=== PATIENT | male | born 1965 | race Two or more races ===

== ENCOUNTER → 2023-10-18 | Outpatient (CLI) | payer OTHER ==
--- NOTE | 2023-10-18 11:39 | FL ---
COMPARISON: NONE DATE OF EXAM: 10/18/2023 HISTORY: Dysphagia A number of thin and thick substances were ingested under the care of the department of speech pathol ogy. There is no evidence of aspiration or penetration. There is no evidence of obstruction. 69 se conds of fluoroscopy. A DAP cannot be obtained within this fluoroscopic room. IMPRESSION: 1. No evidence of aspiration or penetration.
== END | disposition home or self-care (01) ==
LOC: RADFLMAIN 10:43
PROVIDERS: ATTEND Family Medicine
DX: K21.00 Gastro-esophageal reflux disease with esophagitis, without bleeding (principal); R13.19 Other dysphagia; I10 Essential (primary) hypertension; K25.9 Gastric ulcer, unspecified as acute or chronic, without hemorrhage or perforation; K22.2 Esophageal obstruction; R04.2 Hemoptysis; R19.7 Diarrhea, unspecified; R10.13 Epigastric pain; R11.10 Vomiting, unspecified; R14.0 Abdominal distension (gaseous)
CPT/HCPCS: 74230

== ENCOUNTER 2023-11-17 10:48 | Day surgery (SDC) | payer OTHER ==
[2023-11-17] MEDS: LACTATED RINGERS 1,000 ML IV ONE (11:17)
[2023-11-17 11:37] VITALS: RESP 16; TEMP 98.5
[2023-11-17] MEDS ORDERED: PROPOFOL 10 MG/ML 20 ML VIAL IV ONE (12:33)
--- NOTE | 2023-11-17 12:59 | P.PCN ---
Date of Procedure: 11/17/23 Procedure(s) Performed: BRIEF HISTORY: Patient is a 58-year-old, pleasant, white male scheduled for an upper endoscopy for evaluation of progressive dysphagia to solids for the last 2 months duration associated with weight loss of 40 pounds. He had an upper endoscopy done a week ago which revealed a tight stricture in the distal esophagus and with masslike extrinsic compression and the scope could not be advanced of the structure. Multiple biopsies were done from the strictured area and biopsies were negative for malignancy. Patient is scheduled for repeat upper endoscopy with rebiopsy because of high clinical suspicion of malignancy. PROCEDURE PERFORMED: Esophagoscopy with dilation and biopsy. PREOPERATIVE DIAGNOSIS: Progressive dysphagia to solids/weight loss and upper endoscopy week ago revealed distal esophageal stricture with a masslike extrinsic compression IV sedation per anesthesia. PROCEDURE: After informed consent was obtained, the patient was brought into the endoscopy unit. IV sedation was administered by Anesthesia under continuous monitoring. Initially the Olympus GIF-140 video endoscope was inserted into the mouth. Esophagus intubated without any difficulty. It was gradually advanced into the distal esophagus. There was some retained thick secretions identified which was aspirated. At 37 cm from the incisors there was a tight esophageal stricture identified and just proximal to this area there was an masslike extrinsic compression noted. At this time I proceeded with balloon dilation using 8-10 mm TTS balloon for 30 seconds. Following the dilation was not able to advance the scope through the stricture. At this time and will biopsies were done from this masslike extrinsic compression at the site of the stricture. The mid and proximal esophagus appeared normal and the patient tolerated the procedure well. IMPRESSION: 1. Tight distal esophageal stricture at 37 cm from the incisors with masslike extrinsic compression status post dilation using 8-10 mm TTS balloon despite which the scope couldn't be advanced throughthe stricture. Status post multiple biopsies of the distal esophageal stricture/masslike compression . 2. Scope could not be advanced into the stomach or duodenum. RECOMMENDATIONS: The findings of this examination were discussed with the patient as well as his family. At this time will await biopsy results. Patient is scheduled for CT of the chest abdomen and pelvis tomorrow. Follow up in office next week.
[2023-11-17 13:56] VITALS: BP 132/76; PULSE 71
== END 2023-11-17 13:52 | disposition home or self-care (01) ==
LOC: ORWHC2ENDO 10:48
PROVIDERS: ATTEND Internal Medicine Gastroenterology
DX: C15.9 Malignant neoplasm of esophagus, unspecified (principal); K22.2 Esophageal obstruction; I10 Essential (primary) hypertension; E78.5 Hyperlipidemia, unspecified; F41.9 Anxiety disorder, unspecified; Z79.899 Other long term (current) drug therapy; Z88.1 Allergy status to other antibiotic agents
CPT/HCPCS: 88305; 43239; 43249; J2704; C1726

== ENCOUNTER → 2023-11-19 | Outpatient (CLI) | payer OTHER ==
--- NOTE | 2023-11-19 13:14 | CT ---
EXAMINATION: CT CHEST, ABDOMEN AND PELVIS WITH IV CONTRAST DATE OF EXAMINATION: 11/19/2023. COMPARISON: None available. INDICATION: Dysphagia and weight loss. PROCEDURE: Axial CT of the chest, abdomen and pelvis was performed following the intravenous adminis tration of 100 ml Isovue 300. Coronal and sagittal reformats were performed. CT dose lowering techniq ues were used, to include: automated exposure control, adjustment for patient size, and/or use of ite rative reconstruction. FINDINGS: CHEST: Mediastinum and Carin: 1.2 cm right paraesophageal lymph node within the upper portion of the mediasti num. There is dilation of the esophagus also noted down to the level of the distal esophagus just abo ve the gastroesophageal junction where there appears to be a large soft tissue mass which may be part ially obstructing the esophagus. There is an adjacent lymph node also to this mass that measures 2.4 cm in short axis diameter. This is suspicious for malignancy with metastatic adenopathy. No additiona l adenopathy is seen within the hilar regions. Pleural and Pericardial spaces: There are no pleural or pericardial effusions. Cardiovascular: The thoracic aorta is normal in size without evidence of aneurysm or dissection. Pulmonary Artery: There are no central pulmonary arterial filling defects. Lung Parenchyma and Airways: The lungs are clear. ABDOMEN: Liver and Biliary system: Normal. Adrenal glands: Normal. Kidneys and ureters: 6.6 cm heterogeneous mass within the interpolar region of the right kidney is s uspicious for a renal cell carcinoma. There are several nonobstructing stones seen within the left ki dney measuring up to 1.2 cm in the inferior pole. There are a few additional cysts and subcentimeter hypodensities otherwise seen within the kidneys bilaterally. Spleen: Normal. Pancreas: Normal. Gallbladder: Normal. Lymph nodes, Peritoneum and mesentery: There is no mesenteric or retroperitoneal lymphadenopathy. Gastrointestinal tract: There are no dilated loops of bowel or free intraperitoneal air. . The appe ndix is normal. There is mild sigmoid colonic diverticulosis without evidence of diverticulitis. Aorta/IVC: Aorta normal. No aortic aneurysm or dissection. IVC normal. Abdominal wall: Normal. PELVIS: Fluid: There is no free fluid in the pelvis. Lymph Nodes: There is no pelvic or inguinal lymphadenopathy.. Urinary bladder: Normal. BONES: Bilateral pars interarticular is defects are seen at L5 with a grade 1 anterolisthesis. There are no acute osseous abnormalities.. ADDITIONAL SIGNIFICANT FINDINGS: None. IMPRESSION: 1. Distal esophageal mass with adenopathy is most likely related to malignancy and esophageal carcino ma. There does appear to be potential partial obstruction as there is contrast leading up into the ma ss within the esophagus which is slightly dilated upstream. 2. Heterogeneous mass within the right kidney is suspicious for a renal cell carcinoma. This is limit ed due to the single phase evaluation of contrast.
== END | disposition home or self-care (01) ==
LOC: RADCTMAIN 11:31
PROVIDERS: ATTEND Internal Medicine Gastroenterology
DX: K22.89 Other specified disease of esophagus (principal); N28.89 Other specified disorders of kidney and ureter; R13.10 Dysphagia, unspecified; R63.4 Abnormal weight loss; R59.0 Localized enlarged lymph nodes
CPT/HCPCS: 71260; 74177; Q9967

== ENCOUNTER 2023-12-05 15:57 | Emergency (ER) | payer OTHER ==
[2023-12-05 16:47] LABS: Basophils # (A) 0.1 k/uL (0-0.2); Basophils % (A) 0 %; Eosinophils # (A) 0.3 k/uL (0-0.7); Eosinophils % (A) 2 %; HGB 16.1 gm/dL (13.0-17.5); Lymphocytes # (A) 1.6 k/uL (1.0-4.8); Lymphocytes % (A) 10 %; MCHC 31.5 g/dL (31.0-37.0); MCV 95.4 fL (80.0-100.0); Mean Platelet Volume 8.3; Monocytes # (A) 0.7 k/uL (0-1.0); Monocytes % (A) 5 %; Neutrophils # (A) 12.7 k/uL (1.3-7.7); Neutrophils % (A) 82 %; Platelet Count 363 k/uL (150-450); RBC 5.35 m/uL (4.30-5.90); RDW 12.8 % (11.5-15.5); WBC 15.5 k/uL (3.8-10.6)
--- NOTE | 2023-12-05 16:56 | XR ---
EXAMINATION TYPE: XR KUB DATE OF EXAM: 12/05/2023 4:44 PM CLINICAL INDICATION:Male, 58 years old with history of abdominal pain; [facility] COMPARISON: None. TECHNIQUE: One radiographic view of the abdomen was obtained. FINDINGS: The bowel gas pattern is nonspecific without dilated loops of small or large bowel. There i s no evidence for organomegaly or pneumoperitoneum. The osseous structures are intact. Left renal c alculus is again identified. Fecal material and gas are demonstrated throughout the colon and rectum. IMPRESSION: 1. Nonspecific bowel gas pattern without radiographic evidence for acute process. 2. Stable left renal calculus.
[2023-12-05 17:13] LABS: ALT 27 U/L (4-49); African American GFR (CKD) >90 (>60 ml/min/1.73 sqM); Albumin 4.5 g/dL (3.5-5.0); Amylase 58 U/L (30-110); Anion Gap 13 mmol/L; Blood Urea Nitrogen 20 mg/dL (9-20); Calcium 9.8 mg/dL (8.4-10.2); Carbon Dioxide 22 mmol/L (22-30); Chloride 103 mmol/L (98-107); Glucose 88 mg/dL (74-99); Lipase 75 U/L (23-300); Non-African American GFR(CKD) >90 (>60 ml/min/1.73 sqM); Sodium 138 mmol/L (137-145); Total Bilirubin 1.2 mg/dL (0.2-1.3); Total Protein 8.1 g/dL (6.3-8.2)
--- NOTE | 2023-12-05 17:30 | ED ---
Abdominal Pain HPI - General Source: patient Mode of arrival: ambulatory Limitations: no limitations <Stalin Rogers - Last Filed: 12/05/23 17:30> <Renetta Arora - Last Filed: 12/06/23 01:41> - General Chief Complaint: Abdominal Pain Stated Complaint: Dizziness Time Seen by Provider: 12/05/23 17:18 - History of Present Illness Initial Comments: 58-year-old male presenting to the ED with a chief complaint of nausea and vomiting. Patient has history of esophageal cancer and notes over the past few months has been having problems with dysphagia. Secondary to this and is due to get a J-tube placed tomorrow by Dr. Isabel. States that he was instructed to present to the ED should he have significant troubles with tolerating p.o. intake as he states Dr. Isabel did not want him to be dehydrated prior to proc edure tomorrow prompting presentation to the ED for further evaluation. (Stalin Rogers) 58-year-old male with esophageal mass presenting with inability to tolerate oral intake. Patient states that he contacted his surgeon Dr. Isabel about concern for dehydration, patient has planned surgery tomorrow Dr. Isabel wanted to make sure the patient was optimized for surgery and advised him come to the ER for hydration. Patient states he has been able to drink about 26 ounces of water today and yesterday however it has been recommended he drink 40 ounces and he has not been able to tolerate that much for a number of days. Patient currently feels as though he cannot tolerate all of his oral secretions though can still occasionally sip water, patient does admit that his symptoms are worsened when he gets very anxious. Patient states that today his urine became dark which made him concerned for dehydration and prompted his visit today. (Renetta Arora) - Related Data Home Medications Medication Instructions Recorded Confirmed Atorvastatin [Lipitor] 80 mg PO HS 11/08/23 12/03/23 Metoprolol Succinate 200 mg PO DAILY 11/08/23 12/03/23 Pantoprazole [Protonix] 40 mg PO BID 11/08/23 12/03/23 Verapamil HCl [Verapamil ER] 120 mg PO DAILY 11/08/23 12/03/23 Allergies Allergy/AdvReac Type Severity Reaction Status Date / Time niacin Allergy Rash/Hives Verified 12/02/23 10:26 Review of Systems ROS Other: All systems not noted in ROS Statement are negative. <Stalin Rogers - Last Filed: 12/05/23 17:30> ROS Other: All systems not noted in ROS Statement are negative. <Renetta Arora - Last Filed: 12/06/23 01:41> ROS Statement: Those systems with pertinent positive or pertinent negative responses have been documented in the HPI. Past Medical History Past Medical History: Cancer Additional Past Medical History / Comment(s): States nausea after eating, states lots of gas after eating.esphogeal ca History of Any Multi-Drug Resistant Organisms: None Reported Past Surgical History: No Surgical Hx Reported Additional Past Surgical History / Comment(s): EGD. Past Anesthesia/Blood Transfusion Reactions: No Reported Reaction Additional Past Anesthesia/Blood Transfusion Reaction / Comment(s): Has never had anesthesia. Past Psychological History: Anxiety Smoking Status: Never smoker Past Alcohol Use History: None Reported Past Drug Use History: None Reported - Past Family History Mother Family Medical History: Cancer Father Family Medical History: Cancer <Stalin Rogers - Last Filed: 12/05/23 17:30> General Exam Limitations: no limitations <Stalin Rogers - Last Filed: 12/05/23 17:30> <Renetta Arora - Last Filed: 12/06/23 01:41> - General Exam Comments Initial Comments: Visual Physical Exam Vital signs reviewed General: Well-appearing, nontoxic, no acute distress. Head: Normocephalic, atraumatic Eyes: PERRLA, EOMI ENT: Airway patent Chest: Nonlabored breathing Skin: No visual rash, normal skin tone Neuro: Alert and oriented 3 Musculoskeletal: No gross abnormalities (Stalin Rogers) Physical Exam GENERAL: Patient is well-developed and well-nourished. Patient is nontoxic and well-hydrated and is in no distress. HENT: Normocephalic, Atraumatic. EYES: PERRL, EOMI PULMONARY: Unlabored respirations. CARDIOVASCULAR: Warm and well perfused extremities ABDOMEN: Non-distended SKIN: No rashes or bruising No jaundice : Deferred NEUROLOGIC: Alert and oriented Normal speech Normal gait MUSCULOSKELETAL: Moving all extremities with no apparent injury PSYCHIATRIC: No SI/HI (Renetta Arora) Course Vital Signs 12/05/23 12/05/23 16:10 20:48 Temperature 98 F 97.8 F Pulse Rate 75 81 Respiratory 16 17 Rate Blood Pressure 167/104 144/87 O2 Sat by Pulse 98 97 Oximetry Medical Decision Making - Lab Data Result diagrams: 12/05/23 16:17 <Stalin Rogers - Last Filed: 12/05/23 17:30> - Lab Data Result diagrams: 12/05/23 16:17 12/05/23 16:17 <Renetta Arora - Last Filed: 12/06/23 01:41> - Medical Decision Making Quicknote portion performed. Signed Stalin Rogers PA-C (Stalin Rogers) Was pt. sent in by a medical professional or institution (, [facility], HANDLE FINISHER, urgent care, hospital, or fdc...) When possible be specific @ -Advised to come by a surgeon Dr. Isabel Did you speak to anyone other than the patient for history (EMS, parent, family, police, friend...)? What history was obtained from this source @ -- at bedside Did you review nursing and triage notes (agree or disagree)? Why? @ -I reviewed and agree with nursing and triage notes Were old charts reviewed (outside hosp., previous admission, EMS record, old EKG, old radiological studies, urgent care reports/EKG's, fdc records)? Report findings @ -Previous visits were reviewed Differential Diagnosis (chest pain, altered mental status, abdominal pain women, abdominal pain men, vaginal bleeding, weakness, fever, dyspnea, syncope, headache, dizziness, GI bleed, back pain, seizure, CVA, palpatations, mental health)? @ -MDM differential includes dehydration EKG interpreted by me (3pts min.). @ -As above X-rays interpreted by me (1pt min.). @ -None done CT interpreted by me (1pt min.). @ -None done U/S interpreted by me (1pt. min.). @ -None done What testing was considered but not performed or refused? (CT, X-rays, U/S, labs)? Why? @ -None What meds were considered but not given or refused? Why? @ -None Did you discuss the management of the patient with other professionals (professionals i.e. DrShawn, PA, HANDLE FINISHER, lab, RT, psych nurse, social work case manager, trauma registrar, teacher, air antisubmarine officer, social work case manager)? Give summary @ -No Was smoking cessation discussed for >3mins.? @ -No Was critical care preformed (if so, how long)? @ -No Were there social determinants of health that impacted care today? How? (Homelessness, low income, unemployed, alcoholism, drug addiction, transportati on, low edu. Level, literacy, decrease access to med. care, retirement, rehab)? @ -No Was there de-escalation of care discussed even if they declined (Discuss DNR or withdrawal of care, Hospice)? DNR status @ -No What co-morbidities impacted this encounter? (DM, HTN, Smoking, COPD, CAD, Cancer, CVA, ARF, Chemo, Hep., AIDS, mental health diagnosis, sleep apnea, morbid obesity)? @ -None Was patient admitted / discharged? Hospital course, mention meds given and route, prescriptions, significant lab abnormalities, going to OR and other pertinent info. @ -Discharged The patient was seen and evaluated labs were obtained by triage there was some hemolysis resulting in some mild hyperkalemia no other significant abnormalities. Patient received 1 L of IV fluids he reported feeling better not so dehydrated he urinated multiple times here in the ER. Reports his urine is also dark. At this time patient stable for discharge home with plan for n.p.o. at midnight and outpatient surgery tomorrow. Undiagnosed new problem with uncertain prognosis? @ -No Drug Therapy requiring intensive monitoring for toxicity (Heparin, Nitro, Insulin, Cardizem)? @ -No Were any procedures done? @ -No Diagnosis/symptom? @ -Dehydration Acute, or Chronic, or Acute on Chronic? @ -Acute Uncomplicated (without systemic symptoms) or Complicated (systemic symptoms)? @ -Uncomplicated Side effects of treatment? @ -Side effect of cancer and obstructing esophageal mass Exacerbation, Progression, or Severe Exacerbation? @ -No Poses a threat to life or bodily function? How? (Chest pain, USA, VT, pneumonia, PE, COPD, DKA, ARF, appy, cholecystitis, CVA, Diverticulitis, Homicidal, Suicidal, threat to staff... and all critical care pts) @ -No (Renetta Arora Jessy) - Lab Data Lab Results 12/05/23 12/05/23 12/05/23 Range/Units 16:17 16:17 16:17 WBC 15.5 H (3.8-10.6) k/uL RBC 5.35 (4.30-5.90) m/uL Hgb 16.1 (13.0-17.5) gm/dL Hct 51.0 (39.0-53.0) % MCV 95.4 (80.0-100.0) fL MCH 30.0 (25.0-35.0) pg MCHC 31.5 (31.0-37.0) g/dL RDW 12.8 (11.5-15.5) % Plt Count 363 (150-450) k/uL MPV 8.3 Neutrophils % 82 % Lymphocytes % 10 % Monocytes % 5 % Eosinophils % 2 % Basophils % 0 % Neutrophils # 12.7 H (1.3-7.7) k/uL Lymphocytes # 1.6 (1.0-4.8) k/uL Monocytes # 0.7 (0-1.0) k/uL Eosinophils # 0.3 (0-0.7) k/uL Basophils # 0.1 (0-0.2) k/uL PT 10.6 (10.0-12.5) sec INR 1.0 (<1.2) Sodium (137-145) mmol/L Potassium (3.5-5.1) mmol/L Chloride (98-107) mmol/L Carbon Dioxide (22-30) mmol/L Anion Gap mmol/L BUN (9-20) mg/dL Creatinine (0.66-1.25) mg/dL Est GFR (CKD-EPI)AfAm (>60 ml/min/1.73 sqM) Est GFR (CKD-EPI)NonAf (>60 ml/min/1.73 sqM) Glucose (74-99) mg/dL Calcium (8.4-10.2) mg/dL Magnesium (1.6-2.3) mg/dL Total Bilirubin (0.2-1.3) mg/dL AST (17-59) U/L ALT (4-49) U/L Alkaline Phosphatase (38-126) U/L Troponin I (0.000-0.034) ng/mL Total Protein (6.3-8.2) g/dL Albumin (3.5-5.0) g/dL Amylase (30-110) U/L Lipase (23-300) U/L Urine Color Yellow Urine Appearance Cloudy (Clear) Urine pH 5.5 (5.0-8.0) Ur Specific [place] 1.023 (1.001-1.035) Urine Protein 1+ H (Negative) Urine Glucose (UA) Negative (Negative) Urine Ketones Trace H (Negative) Urine Blood Large H (Negative) Urine Nitrite Negative (Negative) Urine Bilirubin Negative (Negative) Urine Urobilinogen <2.0 (<2.0) mg/dL Ur Leukocyte Esterase Small H (Negative) Urine RBC >182 H (0-5) /hpf Urine WBC 5 (0-5) /hpf Ur Squamous Epith Cells <1 (0-4) /hpf Calcium Oxalate Crystal Few H (None) /hpf Urine Mucus Many H (None) /hpf 12/05/23 12/05/23 Range/Units 16:17 16:17 WBC (3.8-10.6) k/uL RBC (4.30-5.90) m/uL Hgb (13.0-17.5) gm/dL Hct (39.0-53.0) % MCV (80.0-100.0) fL MCH (25.0-35.0) pg MCHC (31.0-37.0) g/dL RDW (11.5-15.5) % Plt Count (150-450) k/uL MPV Neutrophils % % Lymphocytes % % Monocytes % % Eosinophils % % Basophils % % Neutrophils # (1.3-7.7) k/uL Lymphocytes # (1.0-4.8) k/uL Monocytes # (0-1.0) k/uL Eosinophils # (0-0.7) k/uL Basophils # (0-0.2) k/uL PT (10.0-12.5) sec INR (<1.2) Sodium 138 (137-145) mmol/L Potassium 5.7 H (3.5-5.1) mmol/L Chloride 103 (98-107) mmol/L Carbon Dioxide 22 (22-30) mmol/L Anion Gap 13 mmol/L BUN 20 (9-20) mg/dL Creatinine 0.67 (0.66-1.25) mg/dL Est GFR (CKD-EPI)AfAm >90 (>60 ml/min/1.73 sqM) Est GFR (CKD-EPI)NonAf >90 (>60 ml/min/1.73 sqM) Glucose 88 (74-99) mg/dL Calcium 9.8 (8.4-10.2) mg/dL Magnesium 2.0 (1.6-2.3) mg/dL Total Bilirubin 1.2 (0.2-1.3) mg/dL AST 43 (17-59) U/L ALT 27 (4-49) U/L Alkaline Phosphatase 89 (38-126) U/L Troponin I <0.012 (0.000-0.034) ng/mL Total Protein 8.1 (6.3-8.2) g/dL Albumin 4.5 (3.5-5.0) g/dL Amylase 58 (30-110) U/L Lipase 75 (23-300) U/L Urine Color Urine Appearance (Clear) Urine pH (5.0-8.0) Ur Specific [place] (1.001-1.035) Urine Protein (Negative) Urine Glucose (UA) (Negative) Urine Ketones (Negative) Urine Blood (Negative) Urine Nitrite (Negative) Urine Bilirubin (Negative) Urine Urobilinogen (<2.0) mg/dL Ur Leukocyte Esterase (Negative) Urine RBC (0-5) /hpf Urine WBC (0-5) /hpf Ur Squamous Epith Cells (0-4) /hpf Calcium Oxalate Crystal (None) /hpf Urine Mucus (None) /hpf Disposition <Stalin Rogers - Last Filed: 12/05/23 17:30> Is patient prescribed a controlled substance at d/c from ED?: No <Renetta Arora - Last Filed: 12/06/23 01:41> Clinical Impression: Dehydration Disposition: HOME SELF-CARE Condition: Stable Additional Instructions: Good luck with surgery tomorrow Referrals: Enoch Isabel MD [Medical Doctor] - 1-2 days
[2023-12-05 17:37] LABS: Prothrombin Time 10.6 sec (10.0-12.5)
[2023-12-05 17:45] LABS: AST 43 U/L (17-59); Alkaline Phosphatase 89 U/L (38-126); Potassium 5.7 mmol/L (3.5-5.1)
[2023-12-05] MEDS: SODIUM CHLORIDE 0.9% 1,000 ML IV STA (18:46)
[2023-12-05 19:11] LABS: Appearance,Urine Cloudy (Clear); Bilirubin,Urine Negative (Negative); Blood,Urine Large (Negative); Calcium Oxalate Crystals,Urine Few /hpf; Color,Urine Yellow; Glucose,Urine (UA) Negative (Negative); Ketones,Urine Trace (Negative); Leukocyte Esterase,Urine Small (Negative); Mucus,Urine Many /hpf; Nitrite,Urine Negative (Negative); PH, Urine 5.5 (5.0-8.0); Protein,Urine 1+ (Negative); RBC,Urine >182 /hpf (0-5); Specific Gravity,Urine 1.023 (1.001-1.035); Squamous Epithelial Cell,Urine <1 /hpf (0-4); Urobilinogen,Urine <2.0 mg/dL (<2.0); WBC,Urine 5 /hpf (0-5)
[2023-12-05 20:52] VITALS: BP 144/87; PULSE 81; RESP 17; TEMP 97.8
== END 2023-12-05 20:25 | disposition home or self-care (01) ==
LOC: EC 15:57
DX: E86.0 Dehydration (principal); E87.5 Hyperkalemia; Z88.8 Allergy status to other drugs, medicaments and biological substances; Z85.01 Personal history of malignant neoplasm of esophagus
CPT/HCPCS: 36415; 74018; 80053; 81001; 82150; 83690; 83735; 84484; 85025; 85610; 96360; 99284

== ENCOUNTER 2023-12-06 06:02 | Observation (INO) | payer OTHER ==
[2023-12-06] MEDS: LACTATED RINGERS 1,000 ML IV SCH (06:55)
[2023-12-06] MEDS ORDERED: HYDROmorphone 0.5 MG/0.5 ML SYRINGE IVP PRN ×2 (07:00→09:37)
[2023-12-06] MEDS: DEXAMETHASONE SOD PHOSPHATE 4 MG/ML 1 ML VIAL IV ONE (07:00)
[2023-12-06] MEDS: ONDANSETRON 4 MG/2 ML VIAL IVP ONE (07:00)
[2023-12-06] MEDS ORDERED: MIDAZOLAM 2 MG/2 ML VIAL IV PRN (07:00)
[2023-12-06] MEDS: HEPARIN SODIUM,PORCINE 5,000 UNIT/ML 1 ML VIAL SQ ONE (07:20)
[2023-12-06] MEDS: SCOPOLAMINE 1 MG/72 HR PATCH TRANSDERM ONE (07:20)
[2023-12-06] MEDS ORDERED: ePHEDrine 50 MG/ML 1 ML VIAL ONE (07:30)
[2023-12-06] MEDS ORDERED: ROCURONIUM 10 MG/ML (5 ML VIAL) IV ONE (07:30)
[2023-12-06] MEDS ORDERED: PROPOFOL 10 MG/ML 20 ML VIAL IV ONE (07:30)
[2023-12-06] MEDS ORDERED: LIDOCAINE 1% INJ 10MG/ML (20 ML MDV) ONE (07:30)
[2023-12-06] MEDS ORDERED: fentaNYL (PF) 50 MCG/ML 2 ML AMP ONE (07:30)
[2023-12-06] MEDS ORDERED: NEOSTIGMINE 1 MG/ML 10 ML VIAL ONE (07:30)
[2023-12-06] MEDS ORDERED: GLYCOPYRROLATE 0.2 MG/ML 2 ML VIAL ONE (07:30)
[2023-12-06] MEDS ORDERED: WATER FOR INJECTION, STERILE 10 ML VIAL IV ONE (07:30)
[2023-12-06] MEDS ORDERED: PHENYLEPHRINE-0.9% NACL SYG 1,000 MCG/10 ML SYRINGE ONE (07:30)
[2023-12-06] MEDS ORDERED: SUCCINYLCHOLINE CHLORIDE 200 MG/10 ML VIAL IV ONE (07:30)
--- NOTE | 2023-12-06 07:32 | P.GSHP ---
History of Present Illness H&P Date: 12/06/23 Chief Complaint: Esophageal cancer 58-year-old male here today for elective jejunostomy feeding tube placement. Patient with recent diagnosis of distal esophageal squamous carcinoma. Workup thus far unclear whether this represents a primary esophageal squamous lesion or possibly a squamous malignancy from the mediastinum. The lumen is quite narrow and passage of endoscopy tube unsuccessful recently. For that reason and because of patient's progressive dysphagia patient is here for feeding tube placement. I spoke with medical oncology and radiation oncology. There is the potential for using the stomach as a conduit for esophageal replacement with future surgery. For that reason feeding jejunostomy tube is planned. Patient did come to the ER yesterday because of some dehydration issues. Patient has had some significant progressive dysphagia. Only tolerating thin liquids sparingly. Past Medical History Past Medical History: Cancer Additional Past Medical History / Comment(s): States nausea after eating, states lots of gas after eating.esphogeal ca History of Any Multi-Drug Resistant Organisms: None Reported Past Surgical History: No Surgical Hx Reported Additional Past Surgical History / Comment(s): EGD. Past Anesthesia/Blood Transfusion Reactions: No Reported Reaction Additional Past Anesthesia/Blood Transfusion Reaction / Comment(s): Has never had anesthesia. Past Psychological History: Anxiety Smoking Status: Never smoker Past Alcohol Use History: None Reported Past Drug Use History: None Reported - Past Family History Mother Family Medical History: Cancer Father Family Medical History: Cancer Medications and Allergies Home Medications Medication Instructions Recorded Confirmed Type Atorvastatin [Lipitor] 80 mg PO HS 11/08/23 12/03/23 History Metoprolol Succinate 200 mg PO DAILY 11/08/23 12/03/23 History Pantoprazole [Protonix] 40 mg PO BID 11/08/23 12/03/23 History Verapamil HCl [Verapamil ER] 120 mg PO DAILY 11/08/23 12/03/23 History Allergies Allergy/AdvReac Type Severity Reaction Status Date / Time niacin Allergy Rash/Hives Verified 12/06/23 06:43 Surgical - Exam Vital Signs Temp Pulse Resp BP Pulse Ox 97.6 F 76 16 142/77 98 12/06/23 06:51 12/06/23 06:51 12/06/23 06:51 12/06/23 06:51 12/06/23 06:51 Physical exam: General: Well-developed, well-nourished HEENT: Normocephalic, sclerae nonicteric Abdomen: Nontender, nondistended Extremities: No edema Neuro: Alert and oriented Assessment and Plan (1) Esophageal cancer Narrative/Plan: 58-year-old male with esophageal cancer. Will proceed with laparoscopic da Herbert assisted jejunostomy feeding tube placement at this time. We discussed that if peritoneal disease is encountered that we would consider changing to a gastrostomy tube for ease of use. Risks of bleeding, infection, leak, abscess, obstruction, ileus, catheter falling out, catheter misplacement, conversion to an open procedure. Patient understands and wishes to proceed. Current Visit: Yes Status: Acute Code(s): C15.9 - MALIGNANT NEOPLASM OF ESOPHAGUS, UNSPECIFIED SNOMED Code(s): 400869178
[2023-12-06] MEDS: BUPIVACAINE (PF) 0.25% 30 ML VIAL SQ ONE ×3 (07:59)
[2023-12-06] MEDS: LACTATED RINGERS 1,000 ML IV ONE (08:17)
[2023-12-06] MEDS ORDERED: HYDROmorphone 1 MG/ML 1 ML SYRINGE IVP PRN (09:37)
[2023-12-06] MEDS ORDERED: ONDANSETRON 4 MG/2 ML VIAL IVP PRN (09:37)
[2023-12-06] MEDS ORDERED: NALOXONE 0.4 MG/ML 1 ML VIAL IV PRN (09:37)
--- NOTE | 2023-12-06 09:49 | P.OP ---
Date of Procedure: 12/06/23 Procedure(s) Performed: PREOPERATIVE DIAGNOSIS: Esophageal cancer POSTOPERATIVE DIAGNOSIS: Same PROCEDURE: Laparoscopic da Herbert assisted jejunostomy feeding tube placement SURGEON: Maame EBL: 10 cc ANESTHESIA: General COMPLICATIONS: None OPERATIVE PROCEDURE: Patient placed on the operating table in the supine position. The patient was placed under general anesthesia. A 5 mm optical trocar was used to enter the abdomen in the right mid abdomen. Full insufflation took place. 2 additional 8 mm trocars were placed superior and inferior to this on the right side of the abdomen. The initial 5 was switched to an 8 mm trocar. The robot was then docked. The 30 degree angled scope was utilized. A cadiere grasper was used in the left hand and a Morgan cut needle bus driver supervisor in the right hand. The bowel was inspected. The ligament of Treitz was identified. I then chose a site approximately 15 cm from the ligament of Treitz where a loop of jejunum was grasped and sutured vertically to the abdominal wall in the left upper quadrant. This was sutured in place using a running absorbable 3 OV lock stitch. Once we had the lateral aspect of the bowel sutured to the abdominal wall a small slit incision was made in the left upper quadrant. Using a hemostat I penetrated the peritoneum just medial to our suture line. A nonlatex 16 Slovak T-tube was utilized for the J-tube. Portions of the bottom surface of the T-tube were removed to help prevent clogging of the catheter. The catheter was then advanced into the bowel lumen after a small enterotomy was made on the antimesenteric portion of the jejunum there. A 3-0 absorbable V-Loc suture was used as a pursestring then around the catheter. The catheter was then pulled through the abdominal wall. The initially placed 3 oh V-Loc suture was then used to suture proximally on the medial aspect of the loop of jejunum to secure the bowel in place. The trocars were then removed. Insufflation was evacuated. The catheter was sutured to the skin using 2 separate 3-0 silk sutures. A feeding adapter was then applied. Sterile dressings were applied. DISPOSITION: Stable to recovery room
[2023-12-06] MEDS: KETOROLAC 15 MG/ML 1 ML VIAL IVP SCH (13:05)
[2023-12-06] MEDS: ACETAMINOPHEN IV (For NPO) 1,000 MG in EMPTY BAG 1 BAG IVPB SCH (13:06)
[2023-12-06] MEDS: HEPARIN SODIUM,PORCINE 5,000 UNIT/ML 1 ML VIAL SQ SCH (15:53)
[2023-12-07 00:11] LABS: Glucose,Whole Blood 88 mg/dL (70-110)
[2023-12-07 05:33] LABS: Glucose,Whole Blood 82 mg/dL (70-110)
[2023-12-07 07:21] LABS: HCT 48.1 % (39.0-53.0); HGB 15.3 gm/dL (13.0-17.5); MCH 30.7 pg (25.0-35.0); MCHC 31.7 g/dL (31.0-37.0); MCV 96.8 fL (80.0-100.0); Mean Platelet Volume 8.3; Platelet Count 305 k/uL (150-450); RBC 4.97 m/uL (4.30-5.90); RDW 12.9 % (11.5-15.5); WBC 14.6 k/uL (3.8-10.6)
[2023-12-07] MEDS: PANTOPRAZOLE 40 MG/10 ML VIAL IV SCH (09:49)
[2023-12-07] MEDS: VERAPAMIL SR 120 MG TABLET.ER PO SCH (10:13)
[2023-12-07] MEDS: METOPROLOL SUCCINATE (ER) 100 MG TAB.ER.24H PO SCH (10:13)
[2023-12-07 12:53] LABS: Glucose,Whole Blood 90 mg/dL (70-110)
--- NOTE | 2023-12-07 14:04 | P.CONS ---
History of Present Illness - Reason for Consult Consult date: 12/07/23 - History of Present Illness Patient is a 88-year-old male with history of hypertension, hyperlipidemia, esophageal cancer presenting for elective jejunostomy feeding tube placement. [facility] has been consulted for medical management. He denies any chest pain, shortness of breath, abdominal pain, nausea, vomiting, urinary or bowel complaints. He denies any fevers or chills. Vital signs within normal limits. WBC 14.6, hemoglobin 15.3, blood sugars range between 82-90. Pertinent positives and negatives as discussed in HPI, a complete review of systems was performed and all other systems are negative. Patient seen and examined at bedside. Vital signs reviewed General: nontoxic, no distress, appears at stated age Derm: warm, dry, dressing clean, dry, intact Head: atraumatic, normocephalic, symmetric Eyes: EOMI, no lid lag, anicteric sclera, pupils equal round reactive to light ENT: Nose and ears atraumatic Neck: No thyromegaly, supple Mouth: no lip lesion, mucus membranes moist Cardiovascular: S1S2 reg, no murmur, no edema Lungs: clear to auscultation bilateral, no rhonchi, no rales, no wheeze, no accessory muscle use Abdominal: soft, nontender to palpation, no guarding, no appreciable organomegaly, G-tube in place Ext: no gross muscle atrophy, muscle strength muscle strength 5 out of 5 in all 4 extremities, no contractures Neuro: CN II-XII grossly intact Psych: Alert, oriented, appropriate affect Assessment/Plan: Active: Status post selective jejunostomy feeding tube placement Leukocytosis, anticipated outcome of surgery Esophageal cancer History of hypertension History of dyslipidemia Patient currently unable to take oral medications. Unable to provide medications through J-tube. Blood pressure and heart rate within normal limits, okay to hold atorvastatin, v erapamil, and metoprolol. Continue feeds through J-tube IV Tylenol for pain control, IV Dilaudid as needed, IV Toradol as needed, also on IV Protonix 40 daily Patient is medically optimized for discharge Thank you for allowing us to participate in the care of this pleasant patient. Do not hesitate to contact us with questions. Someone can be reached from the [facility] hospitalist group all hours of the day at [phone] or via [employer]. Past Medical History Past Medical History: Cancer Additional Past Medical History / Comment(s): States nausea after eating, states lots of gas after eating.esphogeal ca History of Any Multi-Drug Resistant Organisms: None Reported Past Surgical History: No Surgical Hx Reported Additional Past Surgical History / Comment(s): EGD. Past Anesthesia/Blood Transfusion Reactions: No Reported Reaction Additional Past Anesthesia/Blood Transfusion Reaction / Comm: Has never had anesthesia. Past Psychological History: Anxiety Smoking Status: Never smoker Past Alcohol Use History: None Reported Additional Past Alcohol Use History / Comment(s): Has not had any alcohol for 2 weeks. Past Drug Use History: None Reported - Past Family History Mother Family Medical History: Cancer Father Family Medical History: Cancer Medications and Allergies Allergies Allergy/AdvReac Type Severity Reaction Status Date / Time niacin Allergy Rash/Hives Verified 12/06/23 06:43 Physical Exam Vitals: Vital Signs Temp Pulse Resp BP BP Pulse Ox 12/07/23 12:59 98.4 F 67 18 115/75 97 12/07/23 07:45 98.1 F 52 L 16 121/75 12/07/23 02:00 98.9 F 74 16 131/80 98 12/06/23 20:00 18 12/06/23 19:58 98.1 F 69 18 111/69 97 Intake and Output 12/06/23 12/07/23 12/07/23 22:59 06:59 14:59 Other: Voiding Method Toilet Weight 107.9 kg 107 kg 107 kg Results CBC & Chem 7: 12/07/23 06:30 Labs: Abnormal Lab Results - Last 24 Hours (Table) 12/07/23 Range/Units 06:30 WBC 14.6 H (3.8-10.6) k/uL
[2023-12-07] MEDS: SODIUM CHLORIDE 0.9% 1,000 ML IV SCH (15:17)
--- NOTE | 2023-12-07 15:53 | P.PN ---
Subjective Progress Note Date: 12/07/23 CHIEF COMPLAINT: Esophageal cancer HISTORY OF PRESENT ILLNESS: Patient postop day #1 status post laparoscopic da Herbert assisted jejunostomy feeding tube placement. Patient's tube feedings have been started. He is currently at 20 ml per hour. He denies any abdominal pain or bloating. Denies any nausea or vomiting. Afebrile. WBC 14.6. Oncology service has ordered MRI PHYSICAL EXAM: VITAL SIGNS: Reviewed. GENERAL: Well-developed in no acute distress. ABDOMEN: Soft. Nondistended. J tube site clean dry and intact NEUROLOGIC: Alert and oriented. Cranial nerves II through XII grossly intact. ASSESSMENT: 1. Esophageal cancer status post jejunostomy tube placement 2. Leukocytosis possibly reactive to the Decadron. PLAN: -Continue to titrate tube feeds -Continue supportive care -Repeat CBC in a.m. Physician Automotive Service Technician note has been reviewed by physician. Signing provider agrees with the documented findings, assessment, and plan of care. I have personally seen and examined the patient, reviewed the TRAINMASTER /PAs history, exam and MDM and agree with the assessment and plan as written. Based on total visit time, I have performed more than 50% of the visit. As above: Patient feels fairly well today. Tolerating tube feeds at 20 cc/h. Only mild discomfort. He is ambulating. Continue slowly advancing tube feeds. Anticipate discharge tomorrow. Objective - Vital Signs Vital signs: Vital Signs Temp 98.4 F 12/07/23 12:59 Pulse 67 12/07/23 12:59 Resp 18 12/07/23 12:59 BP 115/75 12/07/23 12:59 Pulse Ox 97 12/07/23 12:59 FiO2 Intake & Output 12/06/23 12/07/23 12/07/23 18:59 06:59 18:59 Intake Total 1550 Balance 1550 Weight 107.9 kg 107 kg 107 kg Intake: IV 1550 Other: Voiding Method Toilet Toilet - Labs CBC & Chem 7: 12/07/23 06:30 Labs: Abnormal Lab Results - Last 24 Hours (Table) 12/07/23 Range/Units 06:30 WBC 14.6 H (3.8-10.6) k/uL
[2023-12-07 17:25] LABS: Glucose,Whole Blood 95 mg/dL (70-110)
[2023-12-07] MEDS ORDERED: ATORVASTATIN 80 MG TAB PO SCH (21:00)
[2023-12-08 00:02] LABS: Glucose,Whole Blood 99 mg/dL (70-110)
[2023-12-08 06:26] LABS: Glucose,Whole Blood 98 mg/dL (70-110)
[2023-12-08 08:34] LABS: Basophils # (A) 0.02 X 10*3/uL (0.00-0.10); Basophils % (A) 0.2 %; Eosinophils # (A) 0.06 X 10*3/uL (0.04-0.35); Eosinophils % (A) 0.6 %; HCT 40.2 % (39.6-50.0); HGB 12.8 g/dL (13.0-17.0); Lymphocytes # (A) 0.96 X 10*3/uL (0.90-5.00); Lymphocytes % (A) 9.2 %; MCH 30.9 pg (27.0-32.0); MCHC 31.8 g/dL (32.0-37.0); MCV 97.1 FL (80.0-97.0); Mean Platelet Volume 11.4 FL (9.5-12.2); Monocytes # (A) 1.02 X 10*3/uL (0.20-1.00); Monocytes % (A) 9.8 %; NRBC Per 100 WBC 0 X 10*3/uL (0.00-0.01); Neutrophils # (A) 8.29 X 10*3/uL (1.80-7.70); Neutrophils % (A) 79.9 %; Platelet Count 212 X 10*3/uL (140-440); RBC 4.14 X 10*6/uL (4.40-5.60); RDW 13.4 % (11.5-14.5); WBC 10.38 X 10*3/uL (4.50-10.00)
[2023-12-08 08:47] LABS: Carbon Dioxide 25.3 mmol/L (21.6-31.8); Chloride 107 mmol/L (96-109); Glucose 105 mg/dL (70-110); Potassium 4.4 mmol/L (3.5-5.5); Sodium 142 mmol/L (135-145)
[2023-12-08 09:05] VITALS: RESP 18
--- NOTE | 2023-12-08 10:25 | MR ---
EXAMINATION TYPE: MR brain wo/w con DATE OF EXAM: 12/08/2023 COMPARISON: None HISTORY: Esophageal cancer, staging CONTRAST: Performed utilizing 11 mL intravenous Gadavist gadolinium contrast. TECHNIQUE: Multiplanar, multiecho imaging on a 3.0 Kiki magnet is performed through the brain. Stud y is performed within 24 hours of arrival to the hospital. The craniovertebral junction is normal. The pituitary is normal. Diffusion-weighted imaging is performed. No abnormal hyperintensity is present to suggest an acute i ntracranial infarct or acute ischemic change. There are a couple of punctate areas of hyperintensity on T2 and Inversion Recovery weighted sequence s which are non-specific but can be related to microvascular ischemic changes. No abnormal enhancement is evident. Ventricles and sulci are appropriate for the patient age. There is some mild thickening within the maxillary sinuses. Minimal air-fluid level may be of inferio r dependent right maxillary sinus IMPRESSION: 1. No suspicious acute intracranial process to suggest metastatic disease. 2. There is some minimal chronic appearing white matter ischemic-type changes. 3. Clinical consideration for mild right maxillary sinusitis is recommended.
[2023-12-08 10:56] VITALS: BMI 37.6
--- NOTE | 2023-12-08 11:33 | P.PN ---
Subjective Progress Note Date: 12/08/23 Subjective: Patient seen and examined at bedside. No acute events overnight. Pertinent positives and negatives as discussed above, a complete review of systems was performed and all other systems are negative. Vitals Signs Reviewed. General: nontoxic, no distress, appears at stated age Derm: warm, dry, dressing clean, dry, intact Head: atraumatic, normocephalic, symmetric Eyes: EOMI, no lid lag, anicteric sclera, pupils equal round reactive to light ENT: Nose and ears atraumatic Neck: No thyromegaly, supple Mouth: no lip lesion, mucus membranes moist Cardiovascular: S1S2 reg, no murmur, no edema Lungs: clear to auscultation bilateral, no rhonchi, no rales, no wheeze, no accessory muscle use Abdominal: soft, nontender to palpation, no guarding, no appreciable organomegaly, G-tube in place Ext: no gross muscle atrophy, muscle strength muscle strength 5 out of 5 in all 4 extremities, no contractures Neuro: CN II-XII grossly intact Psych: Alert, oriented, appropriate affect Data Reviewed Today: Pertinent Labs: WBC 10.38, hemoglobin 12.8, creatinine 1.4 Imaging: Brain MRI shows no suspicious acute intracranial process to suggest metastatic disease Assessment and Plan: Status post selective jejunostomy feeding tube placement Leukocytosis, anticipated outcome of surgery Esophageal cancer Prerenal DILLON, in setting of poor oral intake History of hypertension History of dyslipidemia -Continue n.p.o. status -Patient tolerating feeds through J-tube -Blood pressure and heart rate within normal limits, okay to hold atorvastatin, verapamil, and metoprolol. -IV Tylenol for pain control, IV Dilaudid as needed, also on IV Protonix 40 daily -Continue to increase feeds, on IV fluids 125 cc an hour normal saline Patient is medically optimized for discharge Thank you for allowing us to participate in the care of this pleasant patient. Do not hesitate to contact us with questions. Someone can be reached from the [facility] hospitalist group all hours of the day at [phone] or via [employer] serve. Objective - Vital Signs Vital signs: Vital Signs Temp 97.7 F 12/08/23 08:00 Pulse 76 12/08/23 08:00 Resp 18 12/08/23 08:00 BP 143/81 12/08/23 08:00 Pulse Ox 99 12/08/23 08:00 FiO2 Intake & Output 12/07/23 12/08/23 12/08/23 18:59 06:59 18:59 Intake Total 1080 Balance 1080 Weight 107 kg 109 kg 109 kg Intake: Oral 1080 Other: Voiding Method Toilet Toilet # Voids 2 - Labs CBC & Chem 7: 12/08/23 05:48 12/08/23 05:48 Labs: Abnormal Lab Results - Last 24 Hours (Table) 12/08/23 12/08/23 Range/Units 05:48 05:48 WBC 10.38 H (4.50-10.00) X 10*3/uL RBC 4.14 L (4.40-5.60) X 10*6/uL Hgb 12.8 L (13.0-17.0) g/dL MCV 97.1 H (80.0-97.0) FL MCHC 31.8 L (32.0-37.0) g/dL Neutrophils # 8.29 H (1.80-7.70) X 10*3/uL Monocytes # 1.02 H (0.20-1.00) X 10*3/uL Est GFR (CKD-EPI) 58 L (>=60)
[2023-12-08 12:39] LABS: Glucose,Whole Blood 96 mg/dL (70-110)
[2023-12-08 13:24] VITALS: BP 157/89; PULSE 74; TEMP 98.1
--- NOTE | 2023-12-08 16:22 | P.DS ---
Providers Date of admission: 12/07/23 14:55 Expected date of discharge: 12/08/23 Attending physician: Enoch Isabel Consults: 12/06/23 09:37 Consult Physician Routine Consulting Provider: Kasie Theodore Consult Reason/Comments: Medical management Do you want consulting provider notified?: Yes 12/07/23 14:27 Consult Physician Routine Consulting Provider: Frantz Morrell Consult Reason/Comments: Esophageal ca Do you want consulting provider notified?: Already Contacted [facility]: Discharge diagnosis 1. Esophageal cancer status post jejunostomy tube placement 2. Leukocytosis possibly reactive to the [facility] course This is a 58-year-old male with a history of esophageal cancer he is status post jejunostomy tube placement. He is tolerating tube feeds. Denies any nausea or vomiting. He is having bowel movements. people manager has arranged tube feeds at home. Patient is stable for discharge. Please refer to chart for any further details. Physician Dowel Machine Operator note has been reviewed by physician. Signing provider agrees with the documented findings, assessment, and plan of care. Patient Condition at Discharge: Stable Plan - Discharge Summary Discharge Rx Participant: No New Discharge Prescriptions: New Acetaminophen Tab [Tylenol] 1,000 mg PO Q6HR PRN #30 tablet PRN Reason: Pain Discontinued Metoprolol Succinate 200 mg PO DAILY Atorvastatin [Lipitor] 80 mg PO HS Verapamil HCl [Verapamil ER] 120 mg PO DAILY Pantoprazole [Protonix] 40 mg PO BID Discharge Medication List Acetaminophen Tab [Tylenol] 1,000 mg PO Q6HR PRN #30 tablet 12/08/23 [Rx] Follow up Appointment(s)/Referral(s): Enoch Isabel MD [Medical Doctor] - 12/16/23 10:50 am [facility], [NON-STAFF] - 1 Week (will see you tomorrow) [facility], [REFERRING] - 1 Week (will deliver supplies between 6-8 tonight) Patient Instructions/Handouts: Tube Feeding (DC) Activity/Diet/Wound Care/Special Instructions: BP and heart rate within normal limits. You can hold off taking any oral medications at the moment. Please see your PCP and surgeon before resuming any medications either orally or through J tube. Per [facility] infusion, pt can get coverage for an enteral nutrition formula, such as Jevity 1.5. Recommendations for Jevity 1.5 below: Jevity 1.5 goal of 70ml/hr X 24 hour period + 150ml H2O flushes q 4 hours X 24 hour period Jevity 1.5 goal of 88ml/hr X 18 hour period + 150ml H2O flushes q 3 hours X 18 hour period Jevity 1.5 goal of 70ml/hr X 24 hours or 88ml/hr X 18 hours provides: 2520 calories (105% of calorie needs) 108g protein (100% of protein needs) 1277ml H2O from formula + 900ml from h2O flushes = 2177ml H2O (91% of fluid needs) + h2O med flushes Discharge Disposition: HOME WITH HOME HEALTH SERVICES
--- NOTE | 2023-12-08 20:47 | P.CONS ---
History of Present Illness - Reason for Consult Consult date: 12/08/23 esophageal cancer Requesting physician: Lei Mancini - Chief Complaint J tube placement - History of Present Illness Patient is a 58-year-old male with recent diagnosis of squamous cell carcinoma. He is a patient of Dr. Morrell. He presented with progressive dysphagia for at least 6 months, and associated weight loss of 35 lbs. The patient had a barium swallow with severe extrensic compression seen in lower esophagus. EGD by Dr Danelle King performed on 11/17/23 revealing extrensic mass with ulceration at 37 cm from incisors. Bx revealed squamous cell carcinoma. 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 Additional studies have been ordered on pathology to further differentiate. It has been recommended for patient to undergo concurrent chemo RT. MRI brain and PET have been ordered Patient was admitted for jejunostomy feeding tube placement due to progressive dysphagia and beginning treatment with chemo/RT. Patient underwent procedure with Dr. Isabel, tolerated procedure well. Tube feedings have been started, patient tolerating well. Denies abdominal pain and nausea vomiting. Brain MRI will be obtained while inpt Review of Systems 10 point ROS is negative except as stated in the HPI Past Medical History Past Medical History: Cancer Additional Past Medical History / Comment(s): States nausea after eating, states lots of gas after eating.esphogeal ca History of Any Multi-Drug Resistant Organisms: None Reported Past Surgical History: No Surgical Hx Reported Additional Past Surgical History / Comment(s): EGD. Past Anesthesia/Blood Transfusion Reactions: No Reported Reaction Additional Past Anesthesia/Blood Transfusion Reaction / Comm: Has never had anesthesia. Past Psychological History: Anxiety Smoking Status: Never smoker Past Alcohol Use History: None Reported Additional Past Alcohol Use History / Comment(s): Has not had any alcohol for 2 weeks. Past Drug Use History: None Reported - Past Family History Mother Family Medical History: Cancer Father Family Medical History: Cancer Medications and Allergies Home Medications Medication Instructions Recorded Confirmed Type Acetaminophen Tab [Tylenol] 1,000 mg PO Q6HR PRN #30 tablet 12/08/23 Rx Allergies Allergy/AdvReac Type Severity Reaction Status Date / Time niacin Allergy Rash/Hives Verified 12/06/23 06:43 Physical Exam Vitals: Vital Signs Temp Pulse Resp BP Pulse Ox 03/27/24 12:48 98.1 F 74 18 157/89 97 12/08/23 08:00 97.7 F 76 18 143/81 99 12/08/23 02:00 98.7 F 75 16 142/81 99 Intake and Output 12/08/23 12/08/23 12/08/23 06:59 14:59 22:59 Other: Voiding Method Toilet Weight 109 kg 109 kg - Constitutional General appearance: average body habitus, no acute distress - EENT Eyes: anicteric sclerae, EOMI ENT: hearing grossly normal - Respiratory breathing is even and unlabored - Cardiovascular skin warm and dry - Gastrointestinal j tube in situ, bandage in place General gastrointestinal: soft, no tenderness - Neurologic Neurologic: CNII-XII intact - Musculoskeletal Musculoskeletal: strength equal bilaterally - Psychiatric Psychiatric: A&O x's 3 Results CBC & Chem 7: 12/08/23 05:48 12/08/23 05:48 Labs: Abnormal Lab Results - Last 24 Hours (Table) 12/08/23 12/08/23 Range/Units 05:48 05:48 WBC 10.38 H (4.50-10.00) X 10*3/uL RBC 4.14 L (4.40-5.60) X 10*6/uL Hgb 12.8 L (13.0-17.0) g/dL MCV 97.1 H (80.0-97.0) FL MCHC 31.8 L (32.0-37.0) g/dL Neutrophils # 8.29 H (1.80-7.70) X 10*3/uL Monocytes # 1.02 H (0.20-1.00) X 10*3/uL Est GFR (CKD-EPI) 58 L (>=60) Assessment and Plan (1) Esophageal cancer Status: Acute Priority: Medium Code(s): C15.9 - MALIGNANT NEOPLASM OF ESOPHAGUS, UNSPECIFIED SNOMED Code(s): 367861636 Plan: Esophageal Cancer: -Full history in HPI -Admitted for J tube placement, procedure went well. Tolerating tube feedings -MRI brain was scheduled for today oupt, will obtain while inpt. Scan was negative for brain metastasis. Results discussed with pt -PET CT scheduled for 12/15 -Plan for concurrent chemo/RT, with carbo/taxol -Once cleared from surgery, will coordinate with rad onc and schedule treatment to begin
== END 2023-12-08 18:35 | disposition home health service (06) ==
LOC: OR 06:02 → 5NMEDONC 09:15 → OR 12-07 14:55
PROVIDERS: ADMIT Surgery; ATTEND Surgery
DX: C15.5 Malignant neoplasm of lower third of esophagus (principal); N17.9 Acute kidney failure, unspecified; E86.0 Dehydration; R13.10 Dysphagia, unspecified; R63.8 Other symptoms and signs concerning food and fluid intake; D72.829 Elevated white blood cell count, unspecified; I10 Essential (primary) hypertension; E78.5 Hyperlipidemia, unspecified; Z79.899 Other long term (current) drug therapy; Z88.8 Allergy status to other drugs, medicaments and biological substances
CPT/HCPCS: 44186; S2900; 70553; 80048; 85025; 85027; 96372

== ENCOUNTER 2023-12-13 12:28 | Inpatient (IN) | payer OTHER ==
--- NOTE | 2023-12-13 13:04 | ED ---
General Adult HPI - General Source: patient, family, RN notes reviewed Mode of arrival: ambulatory Limitations: no limitations <Adeline Ray - Last Filed: 12/13/23 13:03> <David Abdullahi - Last Filed: 12/13/23 19:21> - General Chief complaint: Recheck/Abnormal Lab/Rx Stated complaint: Back Pain Time Seen by Provider: 12/13/23 13:03 - History of Present Illness Initial comments: Quick note: Patient is a 58-year-old male presenting to the ER with a chief complaint of right flank pain. Patient recently had a J-tube placed by Dr. Isabel for esophageal cancer. He does have a history of kidney stones. He states his pain started about 3 to 4 hours ago. (Adeline Ray) 58-year-old male with recent diagnosis of esophageal cancer status post J-tube placement. Presents with generalized abdominal discomfort and flank pain predominantly on the right. No fever. No vomiting. (David Abdullahi) - Related Data Home Medications Medication Instructions Recorded Confirmed No Known Home Medications 12/13/23 12/13/23 Allergies Allergy/AdvReac Type Severity Reaction Status Date / Time niacin Allergy Rash/Hives Verified 12/13/23 14:52 Review of Systems ROS Other: All systems not noted in ROS Statement are negative. <Adeline Ray - Last Filed: 12/13/23 13:03> ROS Other: All systems not noted in ROS Statement are negative. <David Abdullahi - Last Filed: 12/13/23 19:21> ROS Statement: Those systems with pertinent positive or pertinent negative responses have been documented in the HPI. Past Medical History Past Medical History: Cancer Additional Past Medical History / Comment(s): States nausea after eating, states lots of gas after eating.esphogeal ca. j-tube History of Any Multi-Drug Resistant Organisms: None Reported Past Surgical History: No Surgical Hx Reported Additional Past Surgical History / Comment(s): EGD. Past Anesthesia/Blood Transfusion Reactions: No Reported Reaction Additional Past Anesthesia/Blood Transfusion Reaction / Comment(s): Has never had anesthesia. Past Psychological History: Anxiety Smoking Status: Never smoker Past Alcohol Use History: None Reported Past Drug Use History: None Reported - Past Family History Mother Family Medical History: Cancer Father Family Medical History: Cancer <Adeline Ray - Last Filed: 12/13/23 13:03> General Exam Limitations: no limitations <Adeline Ray - Last Filed: 12/13/23 13:03> General appearance: alert, in no apparent distress Head exam: Present: atraumatic, normocephalic Eye exam: Present: normal appearance, PERRL ENT exam: Present: normal exam Neck exam: Present: normal inspection. Absent: tenderness, meningismus Respiratory exam: Present: normal lung sounds bilaterally. Absent: respiratory distress, wheezes Cardiovascular Exam: Present: regular rate, normal rhythm GI/Abdominal exam: Present: soft. Absent: distended, tenderness, guarding Back exam: Absent: CVA tenderness (R), CVA tenderness (L) Neurological exam: Present: alert, oriented X3, CN II-XII intact. Absent: motor sensory deficit Psychiatric exam: Present: normal affect, normal mood Skin exam: Present: warm, dry <David Abdullahi - Last Filed: 12/13/23 19:21> - General Exam Comments Initial Comments: Visual Physical Exam Vital signs reviewed General: Well-appearing, nontoxic, no acute distress. Head: Normocephalic, atraumatic Eyes: PERRLA, EOMI ENT: Airway patent Chest: Nonlabored breathing Skin: No visual rash, normal skin tone Neuro: Alert and oriented 3 Musculoskeletal: No gross abnormalities (Adeline Ray) Course Vital Signs 12/13/23 12:35 Temperature 98.6 F Pulse Rate 101 H Respiratory 18 Rate Blood Pressure 150/91 O2 Sat by Pulse 98 Oximetry Medical Decision Making <Adeline Ray - Last Filed: 12/13/23 13:03> - Lab Data Result diagrams: 12/13/23 15:33 12/13/23 15:33 <David Abdullahi - Last Filed: 12/13/23 19:21> - Medical Decision Making I performed the quick note portion of this chart. Electronically signed by Adeline Ray PA-C (Adeline Ray) Was pt. sent in by a medical professional or institution ([facility], PIT FURNACE OPERATOR, urgent care, hospital, or senior care...) When possible be specific @ -No Did you speak to anyone other than the patient for history (EMS, parent, family, police, friend...)? What history was obtained from this source @ -No Did you review nursing and triage notes (agree or disagree)? Why? @ -I reviewed and agree with nursing and triage notes Were old charts reviewed (outside hosp., previous admission, EMS record, old EKG, old radiological studies, urgent care reports/EKG's, senior care records)? Report findings @ -No old charts were reviewed Differential Diagnosis (chest pain, altered mental status, abdominal pain women, abdominal pain men, vaginal bleeding, weakness, fever, dyspnea, syncope, headache, dizziness, GI bleed, back pain, seizure, CVA, palpatations, mental health, musculoskeletal)? Differential abdominal pain EKG interpreted by me (3pts min.). @ -As above X-rays interpreted by me (1pt min.). @ -None done CT interpreted by me (1pt min.). @ -CT of the abdomen pelvis showing bilateral obstructing renal calculi U/S interpreted by me (1pt. min.). @ -None done What testing was considered but not performed or refused? (CT, X-rays, U/S, labs)? Why? @ -None What meds were considered but not given or refused? Why? @ -None Did you discuss the management of the patient with other professionals (professionals i.e. , PA, PIT FURNACE OPERATOR, lab, RT, psych nurse, social media content manager, payroll lead, teacher, youth corrections officer, ed case manager)? Give summary @Case discussed with Dr. Isabel at the onset of care. Case discussed with Dr. Mancini who will admit Case discussed with Dr. Meredith covering for urology Was smoking cessation discussed for >3mins.? @ -No Was critical care preformed (if so, how long)? @ -No Were there social determinants of health that impacted care today? How? (Homelessness, low income, unemployed, alcoholism, drug addiction, transportation, low edu. Level, literacy, decrease access to med. care, [facility], rehab)? @ -No Was there de-escalation of care discussed even if they declined (Discuss DNR or withdrawal of care, Hospice)? DNR status @ -No What co-morbidities impacted this encounter? (DM, HTN, Smoking, COPD, CAD, Cancer, CVA, ARF, Chemo, Hep., AIDS, mental health diagnosis, sleep apnea, morbid obesity)? @ -Kidney stones, esophageal cancer, renal mass Was patient admitted / discharged? Hospital course, mention meds given and route, prescriptions, significant lab abnormalities, going to OR and other pertinent info. @ -58-year-old male with complicated medical history, recent diagnosis of esophageal mass status post J-tube presenting with abdominal pain and flank pain. Patient well-appearing with stable vitals. No abdominal tenderness on exam. Workup is initiated including laboratory testing, CBC, CMP, urinalysis. CBC shows a leukocytosis at [address] was ordered with IV contrast. No complicating process with the J-tube identified but the patient does have bilateral obstructing renal calculi. I discussed case with Dr. Viri mosqueda for urology who will evaluate the patient tomorrow. Patient admitted to internal medicine. Undiagnosed new problem with uncertain prognosis? @ -No Drug Therapy requiring intensive monitoring for toxicity (Heparin, Nitro, Insulin, Cardizem)? @ -No Were any procedures done? @ -No Diagnosis/symptom? @Bilateral obstructing renal calculi Acute, or Chronic, or Acute on Chronic? @Acute Uncomplicated (without systemic symptoms) or Complicated (systemic symptoms)? @ -Default Side effects of treatment? @ -No Exacerbation, Progression, or Severe Exacerbation? @ -No Poses a threat to life or bodily function? How? (Chest pain, [place], CA, pneumonia, PE, COPD, DKA, ARF, appy, cholecystitis, CVA, Diverticulitis, Homicidal, Suicidal, threat to staff... and all critical care pts) @Moderate risk, renal failure (David Abdullahi) - Lab Data Lab Results 12/13/23 12/13/23 12/13/23 Range/Units 15:33 15:33 15:45 WBC 16.5 H (3.8-10.6) k/uL RBC 4.82 (4.30-5.90) m/uL Hgb 14.6 (13.0-17.5) gm/dL Hct 46.3 (39.0-53.0) % MCV 96.1 (80.0-100.0) fL MCH 30.2 (25.0-35.0) pg MCHC 31.5 (31.0-37.0) g/dL RDW 12.9 (11.5-15.5) % Plt Count 249 (150-450) k/uL MPV 8.1 Neutrophils % 90 % Lymphocytes % 4 % Monocytes % 4 % Eosinophils % 1 % Basophils % 0 % Neutrophils # 14.8 H (1.3-7.7) k/uL Lymphocytes # 0.7 L (1.0-4.8) k/uL Monocytes # 0.7 (0-1.0) k/uL Eosinophils # 0.2 (0-0.7) k/uL Basophils # 0.0 (0-0.2) k/uL Sodium 141 (137-145) mmol/L Potassium 4.7 (3.5-5.1) mmol/L Chloride 104 (98-107) mmol/L Carbon Dioxide 26 (22-30) mmol/L Anion Gap 11 mmol/L BUN 15 (9-20) mg/dL Creatinine 0.74 (0.66-1.25) mg/dL Est GFR (CKD-EPI)AfAm >90 (>60 ml/min/1.73 sqM) Est GFR (CKD-EPI)NonAf >90 (>60 ml/min/1.73 sqM) Glucose 96 (74-99) mg/dL Plasma Lactic Acid Jas 2.0 (0.7-2.0) mmol/L Calcium 9.8 (8.4-10.2) mg/dL Total Bilirubin 0.7 (0.2-1.3) mg/dL AST 51 (17-59) U/L ALT 49 (4-49) U/L Alkaline Phosphatase 106 (38-126) U/L Total Protein 7.1 (6.3-8.2) g/dL Albumin 3.9 (3.5-5.0) g/dL Amylase 56 (30-110) U/L Lipase 86 (23-300) U/L Urine Color Urine Appearance (Clear) Urine pH (5.0-8.0) Ur Specific [place] (1.001-1.035) Urine Protein (Negative) Urine Glucose (UA) (Negative) Urine Ketones (Negative) Urine Blood (Negative) Urine Nitrite (Negative) Urine Bilirubin (Negative) Urine Urobilinogen (<2.0) mg/dL Ur Leukocyte Esterase (Negative) Urine RBC (0-5) /hpf Urine WBC (0-5) /hpf Urine Mucus (None) /hpf 12/13/23 Range/Units 18:21 WBC (3.8-10.6) k/uL RBC (4.30-5.90) m/uL Hgb (13.0-17.5) gm/dL Hct (39.0-53.0) % MCV (80.0-100.0) fL MCH (25.0-35.0) pg MCHC (31.0-37.0) g/dL RDW (11.5-15.5) % Plt Count (150-450) k/uL MPV Neutrophils % % Lymphocytes % % Monocytes % % Eosinophils % % Basophils % % Neutrophils # (1.3-7.7) k/uL Lymphocytes # (1.0-4.8) k/uL Monocytes # (0-1.0) k/uL Eosinophils # (0-0.7) k/uL Basophils # (0-0.2) k/uL Sodium (137-145) mmol/L Potassium (3.5-5.1) mmol/L Chloride (98-107) mmol/L Carbon Dioxide (22-30) mmol/L Anion Gap mmol/L BUN (9-20) mg/dL Creatinine (0.66-1.25) mg/dL Est GFR (CKD-EPI)AfAm (>60 ml/min/1.73 sqM) Est GFR (CKD-EPI)NonAf (>60 ml/min/1.73 sqM) Glucose (74-99) mg/dL Plasma Lactic Acid Jas (0.7-2.0) mmol/L Calcium (8.4-10.2) mg/dL Total Bilirubin (0.2-1.3) mg/dL AST (17-59) U/L ALT (4-49) U/L Alkaline Phosphatase (38-126) U/L Total Protein (6.3-8.2) g/dL Albumin (3.5-5.0) g/dL Amylase (30-110) U/L Lipase (23-300) U/L Urine Color Light Yellow Urine Appearance Clear (Clear) Urine pH 7.0 (5.0-8.0) Ur Specific [place] 1.009 (1.001-1.035) Urine Protein Negative (Negative) Urine Glucose (UA) Negative (Negative) Urine Ketones Negative (Negative) Urine Blood Small H (Negative) Urine Nitrite Negative (Negative) Urine Bilirubin Negative (Negative) Urine Urobilinogen <2.0 (<2.0) mg/dL Ur Leukocyte Esterase Small H (Negative) Urine RBC 41 H (0-5) /hpf Urine WBC 12 H (0-5) /hpf Urine Mucus Rare H (None) /hpf Disposition <Adeline Ray - Last Filed: 12/13/23 13:03> Is patient prescribed a controlled substance at d/c from ED?: No Time of Disposition: 18:50 <David Abdullahi - Last Filed: 12/13/23 19:21> Clinical Impression: Esophageal cancer, Renal calculus, bilateral Disposition: ADMITTED IP TO THIS HOSP Condition: Stable Referrals: Koffi Escamilla DO [Primary Care Provider] - 1-2 days
[2023-12-13 16:05] LABS: Basophils % (A) 0 %; Eosinophils # (A) 0.2 k/uL (0-0.7); Eosinophils % (A) 1 %; HCT 46.3 % (39.0-53.0); HGB 14.6 gm/dL (13.0-17.5); Lymphocytes # (A) 0.7 k/uL (1.0-4.8); Lymphocytes % (A) 4 %; MCH 30.2 pg (25.0-35.0); MCHC 31.5 g/dL (31.0-37.0); MCV 96.1 fL (80.0-100.0); Mean Platelet Volume 8.1; Monocytes # (A) 0.7 k/uL (0-1.0); Monocytes % (A) 4 %; Neutrophils # (A) 14.8 k/uL (1.3-7.7); Neutrophils % (A) 90 %; Platelet Count 249 k/uL (150-450); RBC 4.82 m/uL (4.30-5.90); RDW 12.9 % (11.5-15.5); WBC 16.5 k/uL (3.8-10.6)
[2023-12-13 16:31] LABS: ALT 49 U/L (4-49); African American GFR (CKD) >90 (>60 ml/min/1.73 sqM); Albumin 3.9 g/dL (3.5-5.0); Amylase 56 U/L (30-110); Anion Gap 11 mmol/L; Blood Urea Nitrogen 15 mg/dL (9-20); Calcium 9.8 mg/dL (8.4-10.2); Carbon Dioxide 26 mmol/L (22-30); Chloride 104 mmol/L (98-107); Glucose 96 mg/dL (74-99); Lipase 86 U/L (23-300); Non-African American GFR(CKD) >90 (>60 ml/min/1.73 sqM); Sodium 141 mmol/L (137-145); Total Bilirubin 0.7 mg/dL (0.2-1.3); Total Protein 7.1 g/dL (6.3-8.2)
[2023-12-13] MEDS: HYDROmorphone 0.5 MG/0.5 ML SYRINGE IVP STA ×2 (16:49→19:02)
[2023-12-13] MEDS: SODIUM CHLORIDE 0.9% 500 ML 500 ML IV ONE (16:50)
[2023-12-13 16:53] LABS: AST 51 U/L (17-59); Alkaline Phosphatase 106 U/L (38-126); Potassium 4.7 mmol/L (3.5-5.1)
--- NOTE | 2023-12-13 17:46 | CT ---
EXAMINATION TYPE: CT abdomen pelvis w con CT DLP: 1998 mGycm, Automated exposure control for dose reduction was used. DATE OF EXAM: 12/13/2023 5:16 PM COMPARISON: CT abdomen pelvis most recent from 324. CLINICAL INDICATION:Male, 58 years old with history of ab pain; pt arrives with c/o abdominal/back pa in, pt had J-tube placed recently TECHNIQUE: Axial CT abdomen pelvis w con;Sagittal and coronal reformats were created on a separate w orkstation. Contrast used:100ml mL of Isovue 300 with IV Contrast, (none if empty) Oral contrast used: without Oral Contrast (none if empty) FINDINGS: LOWER CHEST: Moderate hiatal hernia. There is enlarged lymph nodes near the distal esophagus measurin g up to 21 mm in short axis. Distal esophageal circumferential eccentric wall thickening is present. ABDOMEN LIVER: Unremarkable GALLBLADDER AND BILE DUCTS: Unremarkable. PANCREAS: Unremarkable. SPLEEN: Unremarkable. ADRENAL GLANDS: Unremarkable. KIDNEYS AND URETERS: * Mild left hydronephrosis secondary obstructing 11 mm calculus at the ureteral pelvic junction. * Additional nonobstructing left renal calculi present. * Mild right hydroureteronephrosis secondary obstructing calculus at the ureteropelvic junction layo uring 6 mm. * Right renal exophytic masslike lesion measuring up to 6.7 cm, previously 6.6 cm. PELVIS BLADDER: There is a dependent bladder stone in the urinary bladder measuring up to 3 mm. REPRODUCTIVE: Unremarkable. ABDOMEN & PELVIS STOMACH AND BOWEL: No evidence of bowel obstruction. Percutaneous tubing turning the left upper quadr ant small bowel likely the jejunum as described below. PERITONEUM/RETROPERITONEUM: Scattered free air under the diaphragm. VASCULATURE: No evidence of aortic aneurysm. MUSCULOSKELETAL: Moderate degeneration changes at L5-S1 with grade 2 anterolisthesis of L5 5 on S1. M ultilevel degeneration changes with osteophyte formation and facet joint arthropathy throughout the r emainder of the spine. Bilateral spondylolysis at L5-S1. LYMPH NODES: No gross evidence for lymphadenopathy. SOFT TISSUE/ABDOMINAL WALL: Percutaneous tubing in the left abdomen appears to terminate within the j ejunum/small bowel. The tubing is approximate 7 mm from the what is thought to be a cuff. Small fat-c ontaining left inguinal hernia. IMPRESSION: 1. Left abdominal percutaneous tubing which minimally enters the left upper quadrant jejunum. 2. Free air throughout the abdomen could be related to recent surgical intervention. 3. Mild left hydronephrosis secondary obstructing 11 mm calculus at the ureteropelvic junction. 4. Mild right hydroureteronephrosis secondary obstructing 6 mm calculus at the ureterovesicular junc tion. 5. Circumferential distal esophageal wall thickening compatible with malignancy. 6. Adjacent enlarged lymph node remains present. 7. Bladder stone. 8. Heterogenous right renal lesion possibly representing renal cell carcinoma. Further evaluation wi MRI renal mass protocol recommended. 9. Grade 2 anterolisthesis of L5 on S1 with bilateral spondylolysis.
[2023-12-13 18:35] LABS: Appearance,Urine Clear (Clear); Bilirubin,Urine Negative (Negative); Blood,Urine Small (Negative); Color,Urine Light Yellow; Glucose,Urine (UA) Negative (Negative); Ketones,Urine Negative (Negative); Leukocyte Esterase,Urine Small (Negative); Mucus,Urine Rare /hpf; Nitrite,Urine Negative (Negative); Protein,Urine Negative (Negative); RBC,Urine 41 /hpf (0-5); Specific Gravity,Urine 1.009 (1.001-1.035); Urobilinogen,Urine <2.0 mg/dL (<2.0); WBC,Urine 12 /hpf (0-5)
[2023-12-13] MEDS ORDERED: NALOXONE 0.4 MG/ML 1 ML VIAL IV PRN (19:15)
[2023-12-13] MEDS: SODIUM CHLORIDE 0.9% 1,000 ML IV SCH (19:43)
[2023-12-13] MEDS: HYDROmorphone 0.5 MG/0.5 ML SYRINGE IVP PRN (22:12)
--- NOTE | 2023-12-14 04:41 | P.HPIM ---
History of Present Illness H&P Date: 12/13/23 Chief Complaint: Right flank pain 58-year-old male with hypertension and history of renal stone Patient coming in with 1 day history of right flank pain colicky in nature sharp associated with feeling nauseous but no vomiting denies any hematuria denies any fevers or chills denies any changes in urinary habits. Patient denies any rashes denies any trauma to the the abdomen Patient does have a diagnosis of esophageal cancer status post jejunostomy tube as he was unable to swallow. Patient could not take any medications at home because he did not have it and liquid form. Patient has difficulty swallowing Patient denies tobacco smoking illicit drugs or heavy alcohol review of systems Pertinent positives as noted in HPI. All other systems were reviewed and are negative on exam Constitutional: No acute distress, conversant, pleasant Eyes: Anicteric sclerae, moist conjunctiva, Pupils equal round reactive to light ENMT: NC/AT Oropharynx clear, no erythema, or exudates Neck: Supple, no masses, or JVD No carotid bruits No thyromegaly Lungs: Clear to auscultation Clear to percussion Normal respiratory effort, no accessory muscle use Cardiovascular: Heart regular in rate and rhythm, No murmurs, gallops, or rubs No peripheral edema Abdominal: Soft Nontender, no guarding, rebound or rigidity Abdomen moving with respiration Normoactive bowel sounds Jejunostomy tube in place healthy insertion site no drainage Extremities: No digital cyanosis No clubbing Pedal pulses intact and symmetrical Radial pulses intact and symmetrical No calf tenderness Psychiatric: Alert and oriented to person, place and time Appropriate affect fair judgement Neuro Muscles Strength 5/5 in all 4 extremities Sensation to light touch grossly present throughout Cranial nerves II-XII grossly intact Past Medical History Past Medical History: Cancer Additional Past Medical History / Comment(s): States nausea after eating, states lots of gas after eating.esphogeal ca. j-tube History of Any Multi-Drug Resistant Organisms: None Reported Past Surgical History: No Surgical Hx Reported Additional Past Surgical History / Comment(s): EGD. Past Anesthesia/Blood Transfusion Reactions: No Reported Reaction Additional Past Anesthesia/Blood Transfusion Reaction / Comment(s): Has never had anesthesia. Past Psychological History: Anxiety Smoking Status: Never smoker Past Alcohol Use History: None Reported Past Drug Use History: None Reported - Past Family History Mother Family Medical History: Cancer Father Family Medical History: Cancer Medications and Allergies Home Medications Medication Instructions Recorded Confirmed Type No Known Home Medications 12/13/23 12/13/23 History Allergies Allergy/AdvReac Type Severity Reaction Status Date / Time niacin Allergy Rash/Hives Verified 12/13/23 14:52 Physical Exam Vitals: Vital Signs Temp Pulse Resp BP Pulse Ox 12/13/23 21:00 73 16 136/83 97 12/13/23 20:00 73 14 135/81 97 12/13/23 19:00 83 16 147/83 97 12/13/23 12:35 98.6 F 101 H 18 150/91 98 Intake and Output 12/13/23 12/13/23 12/14/23 14:59 22:59 06:59 Other: Weight 104.326 kg Results CBC & Chem 7: 12/13/23 15:33 12/13/23 15:33 Labs: Abnormal Lab Results - Last 24 Hours (Table) 12/13/23 12/13/23 Range/Units 15:33 18:21 WBC 16.5 H (3.8-10.6) k/uL Neutrophils # 14.8 H (1.3-7.7) k/uL Lymphocytes # 0.7 L (1.0-4.8) k/uL Urine Blood Small H (Negative) Ur Leukocyte Esterase Small H (Negative) Urine RBC 41 H (0-5) /hpf Urine WBC 12 H (0-5) /hpf Urine Mucus Rare H (None) /hpf Assessment and Plan Assessment: 58-year-old male with esophageal cancer status post jejunostomy tube coming in for right flank pain discovered to have wound bilateral kidney stones I discussed case with ED doctor and accepted the admission for renal stones with anticipated length of stay more than 2 midnights awaiting urology evaluation Recurrent kidney stones Urology evaluation Strain the urine Pain control UA was positive for blood Leukocytosis reactive, rule out underlying infectious process Follow-up cultures Start patient on Rocephin 1 g IV piggyback daily Follow-up cultures Full code DVT prophylaxis mechanical N.p.o. status waiting for surgery in the morning
[2023-12-14] MEDS ORDERED: ONDANSETRON ODT 4 MG TAB PO PRN (04:45)
[2023-12-14] MEDS: LORazepam 2 MG/ML INJ IV STA (05:20)
--- NOTE | 2023-12-14 08:31 | P.GSCN ---
History of Present Illness Consult date: 12/14/23 Reason for Consult: This is a 58-year-old male that presented to the hospital with right-sided flank pain. CT abdomen and pelvis that showed evidence of a 1.2 cm left-sided proximal ureteral stone, 6 mm right-sided distal ureteral stone. There is evidence of bilateral hydronephrosis. In addition there is also evidence of a 6.7 cm right-sided renal mass. He is currently undergoing staging workup for an esophageal mass, scheduled for PET scan on December 15. No previous history of kidney stones. Denies any gross hematuria or dysuria. He was still able to make urine his creatinine is at baseline. Denies any fevers or chills. There is a family history of kidney stones with his daughter. Review of Systems - Constitutional Denies fever, Denies weight loss - EENT Ears, nose, mouth and throat: Denies dysphagia - Cardiovascular Denies chest pain, Denies shortness of breath - Respiratory Denies cough, Denies 7 - Gastrointestinal Reports abdominal pain, Denies nausea, Denies vomiting - Genitourinary Reports flank pain, Reports kidney stones, Denies hematuria - Integumentary Denies rash, Denies unusual bruising Past Medical History Past Medical History: Cancer Additional Past Medical History / Comment(s): States nausea after eating, states lots of gas after eating.esphogeal ca. j-tube History of Any Multi-Drug Resistant Organisms: None Reported Past Surgical History: No Surgical Hx Reported Additional Past Surgical History / Comment(s): EGD. Past Anesthesia/Blood Transfusion Reactions: No Reported Reaction Additional Past Anesthesia/Blood Transfusion Reaction / Comm: Has never had anesthesia. Past Psychological History: Anxiety Smoking Status: Never smoker Past Alcohol Use History: None Reported Past Drug Use History: None Reported - Past Family History Mother Family Medical History: Cancer Father Family Medical History: Cancer Medications and Allergies Home Medications Medication Instructions Recorded Confirmed Type No Known Home Medications 12/13/23 12/13/23 History Allergies Allergy/AdvReac Type Severity Reaction Status Date / Time niacin Allergy Rash/Hives Verified 12/13/23 14:52 Surgical - Exam Vital Signs Temp Pulse Resp BP Pulse Ox 98.6 F 101 H 18 150/91 98 12/13/23 12:35 12/13/23 12:35 12/13/23 12:35 12/13/23 12:35 12/13/23 12:35 - General no distress, moderate pain - Eyes normal ocular movement, no pale - ENT normal nares, normal mucosa - Respiratory normal expansion, normal respiratory effort - Abdomen Abdomen: soft, non tender - Psychiatric oriented to time, oriented to person, oriented to place Results - Labs 12/13/23 15:33 12/13/23 15:33 Abnormal Lab Results - Last 24 Hours (Table) 12/13/23 12/13/23 Range/Units 15:33 18:21 WBC 16.5 H (3.8-10.6) k/uL Neutrophils # 14.8 H (1.3-7.7) k/uL Lymphocytes # 0.7 L (1.0-4.8) k/uL Urine Blood Small H (Negative) Ur Leukocyte Esterase Small H (Negative) Urine RBC 41 H (0-5) /hpf Urine WBC 12 H (0-5) /hpf Urine Mucus Rare H (None) /hpf Diabetes panel 12/13/23 Range/Units 15:33 Sodium 141 (137-145) mmol/L Potassium 4.7 (3.5-5.1) mmol/L Chloride 104 (98-107) mmol/L Carbon Dioxide 26 (22-30) mmol/L BUN 15 (9-20) mg/dL Creatinine 0.74 (0.66-1.25) mg/dL Glucose 96 (74-99) mg/dL Calcium 9.8 (8.4-10.2) mg/dL AST 51 (17-59) U/L ALT 49 (4-49) U/L Alkaline Phosphatase 106 (38-126) U/L Total Protein 7.1 (6.3-8.2) g/dL Albumin 3.9 (3.5-5.0) g/dL Calcium panel 12/13/23 Range/Units 15:33 Calcium 9.8 (8.4-10.2) mg/dL Albumin 3.9 (3.5-5.0) g/dL Pituitary panel 12/13/23 Range/Units 15:33 Sodium 141 (137-145) mmol/L Potassium 4.7 (3.5-5.1) mmol/L Chloride 104 (98-107) mmol/L Carbon Dioxide 26 (22-30) mmol/L BUN 15 (9-20) mg/dL Creatinine 0.74 (0.66-1.25) mg/dL Glucose 96 (74-99) mg/dL Calcium 9.8 (8.4-10.2) mg/dL Adrenal panel 12/13/23 Range/Units 15:33 Sodium 141 (137-145) mmol/L Potassium 4.7 (3.5-5.1) mmol/L Chloride 104 (98-107) mmol/L Carbon Dioxide 26 (22-30) mmol/L BUN 15 (9-20) mg/dL Creatinine 0.74 (0.66-1.25) mg/dL Glucose 96 (74-99) mg/dL Calcium 9.8 (8.4-10.2) mg/dL Total Bilirubin 0.7 (0.2-1.3) mg/dL AST 51 (17-59) U/L ALT 49 (4-49) U/L Alkaline Phosphatase 106 (38-126) U/L Total Protein 7.1 (6.3-8.2) g/dL Albumin 3.9 (3.5-5.0) g/dL - Imaging CT scan - abdomen: image reviewed (1.5 cm left-sided proximal stone, 6 mm right- sided distal ureteral stone, a large hyperdense right-sided renal mass) Assessment and Plan Assessment: This is a 58-year-old male with history of bilateral ureteral obstruction secondary to ureteral stone. He is still able to make urine his creatinine is stable. But discussed with him given this finding I do recommend proceeding with bilateral stent insertion given the bilateral obstruction. If his stones are not impacted we can attempt to do laser lithotripsy at the same setting. Discussed with him given the bilateral obstruction if there is any concern for stone impaction then we will proceed with stent insertion. Discussed after stent insertion he will require definitive stone management as an outpatient. Discussed with him as a further renal mass I recommend he completes the workup and treatment by esophageal cancer and this can be addressed as an outpatient once he is completed his treatments for his esophageal cancer. Discussed it is on imaging highly concerning for renal cell carcinoma. 1. Bilateral ureteral stones Keep n.p.o. OR for cystoscopy and bilateral stent insertion, possible holmium laser lithotripsy 2. Right-sided renal mass Outpatient evaluation once completes his esophageal cancer workup and treatment
[2023-12-14] MEDS: LACTATED RINGERS 1,000 ML IV ONE (11:29)
[2023-12-14] MEDS: ONDANSETRON 4 MG/2 ML VIAL IVP PRN (11:51)
[2023-12-14] MEDS ORDERED: LIDOCAINE 1% INJ 10MG/ML (20 ML MDV) ONE (12:36)
[2023-12-14] MEDS ORDERED: SUCCINYLCHOLINE CHLORIDE 200 MG/10 ML VIAL IV ONE (12:36)
[2023-12-14] MEDS ORDERED: MIDAZOLAM 2 MG/2 ML VIAL ONE (12:36)
[2023-12-14] MEDS ORDERED: fentaNYL (PF) 50 MCG/ML 2 ML AMP ONE (12:36)
[2023-12-14] MEDS ORDERED: ceFAZolin 1 GM/50 ML BAG (PMX) ONE (12:36)
[2023-12-14] MEDS ORDERED: PROPOFOL 10 MG/ML 20 ML VIAL IV ONE (12:36)
--- NOTE | 2023-12-14 14:22 | FL ---
Fluoroscopy INDICATION: Pain FINDINGS: Fluoroscopy time: 4.6 seconds. Total dose area product (DAP) in uGy*m?, mGy*cm? (or similar): 0.90711 Images obtained: 2. IMPRESSION: 1. Documentation of fluoroscopy.
--- NOTE | 2023-12-14 15:02 | P.PN ---
Subjective Progress Note Date: 12/14/23 Hospital course: Patient is a very pleasant 58-year-old male with a past medical history of esophageal cancer, J-tube placement, kidney stones, hypertension, and anxiety. He presented to the emergency department on 12/13/2023 with a chief complaint of right flank pain. He underwent evaluation in the emergency department. Vital signs upon arrival show blood pressure 150/91, heart rate 101, respiratory rate 18, temp 98.6 F, and SpO2 of 98% on room air. Labs completed and reviewed. CBC showing leukocytosis with WBC count of 16.5. BMP unremarkable with renal function showing BUN of 15, creatinine 0.74, and GFR greater than 90. Lactic acid was 2.0. Liver profile unremarkable. Amylase and lipase normal findings. Urinalysis positive for small amount of blood, 41 RBCs, and [address] abdomen and pelvis with IV contrast showing left abdominal percutaneous tubing entering the left upper quadrant jejunum, free air throughout the abdomen likely secondary to recent surgical intervention, mild left hydronephrosis secondary to obstructing 11 mm calculus at the ureteropelvic junction, mild hydronephrosis secondary to obstructing 6 mm calculus at the ureterovesicular junction, circumferential distal esophageal wall thickening compatible with malignancy, and adjacent lymph node remains present, bladder stone, and heterogenous right renal lesion possibly representing renal cell carcinoma. Patient admitted under our services with consultation to urology. Physical exam: Patient seen and fully evaluated at bedside this morning. He currently reports pain is controlled. He denies any nausea, vomiting, or difficulties with urination. Vital signs reviewed and stable. General: Nontoxic, no distress and appears stated age. Derm: Skin warm and dry, normal coloration for ethnicity. Head: Atraumatic, normocephalic and symmetric. Eyes: EOMs intact, no lid lag, and anicteric sclera Mouth: no lip lesions, mucus membranes moist Cardiovascular: regular rate and rhythm with normal S1S2, no murmur, positive posterior tibial pulses bilaterally, and cap refill < 2 seconds. Lungs: Respirations even, regular, and unlabored on room air. Lungs CTA bilaterally, no rhonchi, no rales, no wheezing, and no accessory muscle usage. Abdominal: soft, nontender to palpation, no guarding, no appreciable organomegaly. Gastric J-tube in place left upper quadrant surrounding insertion site showing no signs of erythema or infection.. Ext: ROM intact. No gross muscle atrophy, no edema, no contractures Neuro: Speech clear, face symmetrical and CN II-XII grossly intact with no noted focal neuro deficits Psych: Alert and oriented to person, place, time, and situation. Appropriate and pleasant affect. Assessment and Plan of Care: Obstructing ureteral calculi with hydronephrosis Renal mass Esophageal cancer status post J-tube placement History of kidney stones Hypertension Anxiety -Urology following, planning to take patient for cystoscopy later today. -Continue Rocephin 1 g daily empirically -Continue gentle IV fluid hydration with 0.9% normal saline at 75 cc/h. -Symptomatic care and pain management. -In regards to renal mass, patient scheduled for PET scan on 12/16/23. -Order placed for Ativan 0.5 mg IVP every 6 hours as needed for anxiety. -Follow-up on urine cultures. Data reviewed: Vital signs reviewed. Blood pressure 143/89, heart rate 95, respiratory rate 16, temp 98.8 F, and SpO2 of 95% on room air. CODE STATUS: Full code DVT prophylaxis: SCDs Anticipated discharge date: Clinical course to determine Anticipated discharge place: Home Patient was seen independently by Nurse Pracitioner. This document was prepared using [employer] dictation software. Please allow for errors in metal sash setter, while rare they do occur. Rodolfo Crenshaw NP rendered care for this patient independently, reviewed the findings and plan as documented in the note above. I did not physically speak with or examine the patient on this date. Objective - Vital Signs Vital signs: Vital Signs Temp 98.8 F 12/14/23 07:00 Pulse 64 12/14/23 06:06 Resp 16 12/14/23 07:00 BP 143/89 12/14/23 07:00 Pulse Ox 95 12/14/23 07:00 FiO2 Intake & Output 12/13/23 12/14/23 12/14/23 18:59 06:59 18:59 Weight 104.326 kg - Labs CBC & Chem 7: 12/13/23 15:33 12/13/23 15:33 Labs: Abnormal Lab Results - Last 24 Hours (Table) 12/13/23 12/13/23 Range/Units 15:33 18:21 WBC 16.5 H (3.8-10.6) k/uL Neutrophils # 14.8 H (1.3-7.7) k/uL Lymphocytes # 0.7 L (1.0-4.8) k/uL Urine Blood Small H (Negative) Ur Leukocyte Esterase Small H (Negative) Urine RBC 41 H (0-5) /hpf Urine WBC 12 H (0-5) /hpf Urine Mucus Rare H (None) /hpf
--- NOTE | 2023-12-14 15:48 | P.OP ---
Date of Procedure: 12/14/23 Preoperative Diagnosis: Bilateral ureteral stone Postoperative Diagnosis: Same Procedure(s) Performed: Cystoscopy, right ureteroscopy and bilateral stent insertion Implants: 6 Scottish by 26 cm stent in the bilateral ureter Anesthesia: JUSTYNA Surgeon: Adolfo Meredith Estimated Blood Loss (ml): 5 Pathology: none sent Condition: stable Disposition: PACU Indications for Procedure: This is a 58-year-old male with history of bilateral ureteral obstruction secon danika to ureteral stone. He is still able to make urine his creatinine is stable. But discussed with him given this finding I do recommend proceeding with bilateral stent insertion given the bilateral obstruction. If his stones are not impacted we can attempt to do laser lithotripsy at the same setting. Discussed with him given the bilateral obstruction if there is any concern for stone impaction then we will proceed with stent insertion. Discussed after stent insertion he will require definitive stone management as an outpatient. Discussed with him as a further renal mass I recommend he completes the workup and treatment by esophageal cancer and this can be addressed as an outpatient once he is completed his treatments for his esophageal cancer. Discussed it is on imaging highly concerning for renal cell carcinoma. Operative Findings: Right distal impacted ureteral stone, large left-sided radiopaque proximal stone, contrast can be seen in the collecting system on the left that has not drained from his CT from yesterday Description of Procedure: Patient brought to the operating room, general anesthesia was induced. He was p repped and draped in sterile fashion and placed in dorsolithotomy position. Cystoscopy fitted with 21 Scottish sheath was inserted per urethra, cystoscopy was performed which showed no abnormality within the bladder. Of note patient had an enlarged prostate, with a intravesical extension. At this point attention was again carried to the left ureteral orifice which was intubated with a sensor wire, I was able to advance the wire and navigate the wire across the stone and into the collecting system. On fluoroscopy contrast from his CT from yesterday can be seen in the collecting system down to the level of the stone. At this point a ureteral stent was passed over the wire, the proximal curl was visualized on fluoroscopy and the distal curl was visualized using the cystoscope. There was hydronephrotic drip that was seen. At this point attention was then carried to the right side, I made multiple attempts to advance the wire past the distal ureteral stone, but the stone was impacted and I was not able to navigate the wire across the stone into the kidney. At this time the cystoscope was withdrawn and a semirigid ureteroscope was inserted per urethra, this was advanced up the right UVJ, at this point a impacted stone with surrounding edema was encountered. I was able to navigate a wire across the stone and into the kidney. Of note on fluoroscopy it was noted that there is so me contrast from the CT seen in the collecting system. At this time the ureteroscope was withdrawn with the wire in place. Next the cystoscope was backloaded over the wire, the ureteral stent was passed over the wire, the proximal curl was visualized on fluoroscopy and the distal curl was visualized using the cystoscope. The bladder was emptied at the end of the case. Patient tolerated procedure was taken to recovery in stable condition
[2023-12-15] MEDS: LORazepam 2 MG/ML INJ IV PRN (01:07)
[2023-12-15 08:26] LABS: HCT 36.5 % (39.6-50.0); HGB 11.6 g/dL (13.0-17.0); MCH 30.9 pg (27.0-32.0); MCHC 31.8 g/dL (32.0-37.0); MCV 97.3 FL (80.0-97.0); Mean Platelet Volume 10.5 FL (9.5-12.2); NRBC Per 100 WBC 0 X 10*3/uL (0.00-0.01); Platelet Count 225 X 10*3/uL (140-440); RBC 3.75 X 10*6/uL (4.40-5.60); RDW 13.7 % (11.5-14.5); WBC 10.39 X 10*3/uL (4.50-10.00)
[2023-12-15 09:15] VITALS: BP 120/78; PULSE 71; RESP 18; TEMP 97.9
[2023-12-15 11:41] LABS: ALT 26 U/L (10-49); AST 21 U/L (14-35); Alkaline Phosphatase 69 U/L (41-126); BUN/Creat Ratio 17.56 Ratio (12.00-20.00); Blood Urea Nitrogen 15.8 mg/dL (9.0-27.0); Calcium 8.8 mg/dL (8.7-10.3); Carbon Dioxide 26.5 mmol/L (21.6-31.8); Chloride 108 mmol/L (96-109); Globulin 2.3 g/dL (1.6-3.3); Glucose 86 mg/dL (70-110); Magnesium 1.7 mg/dL (1.5-2.4); Potassium 4.7 mmol/L (3.5-5.5); Sodium 144 mmol/L (135-145); Total Bilirubin 0.6 mg/dL (0.3-1.2); Total Protein 5.3 g/dL (6.2-8.2)
--- NOTE | 2023-12-15 13:34 | P.PN ---
Subjective Progress Note Date: 12/15/23 Principal diagnosis: Bilateral ureteral stones Status post bilateral stent insertion, doing well. Denies any flank pain or gross hematuria this morning Objective - Vital Signs Vital signs: Vital Signs Temp 97.9 F 12/15/23 08:00 Pulse 71 12/15/23 08:00 Resp 18 12/15/23 08:00 BP 120/78 12/15/23 08:00 Pulse Ox 94 L 12/15/23 08:00 FiO2 Intake & Output 12/14/23 12/15/23 12/15/23 18:59 06:59 18:59 Intake Total 700 0 Output Total 5 Balance 695 0 Weight 104.326 kg Intake: IV 700 Oral 0 Output: Estimated Blood Loss 5 Other: Voiding Method Toilet Toilet Toilet Urinal Urinal Urinal # Voids 1 3 - Constitutional General appearance: Present: no acute distress - Gastrointestinal General gastrointestinal: Present: soft. Absent: distended, tenderness - Psychiatric Psychiatric: Present: A&O x's 3 - Labs CBC & Chem 7: 12/15/23 06:02 12/15/23 06:02 Labs: Abnormal Lab Results - Last 24 Hours (Table) 12/15/23 12/15/23 Range/Units 06:02 06:02 WBC 10.39 H (4.50-10.00) X 10*3/uL RBC 3.75 L (4.40-5.60) X 10*6/uL Hgb 11.6 L (13.0-17.0) g/dL Hct 36.5 L (39.6-50.0) % MCV 97.3 H (80.0-97.0) FL MCHC 31.8 L (32.0-37.0) g/dL Total Protein 5.3 L (6.2-8.2) g/dL Albumin 3.0 L (3.8-4.9) g/dL Albumin/Globulin Ratio 1.30 L (1.60-3.17) Ratio Microbiology - Last 24 Hours (Table) 12/14/23 05:15 Blood Culture - Preliminary Blood 12/14/23 05:00 Blood Culture - Preliminary Blood 12/13/23 18:21 Urine Culture - Final Urine,Voided Assessment and Plan Assessment: This is a 58-year-old male with history of bilateral ureteral obstruction secondary to ureteral stone. Underwent bilateral stent insertions yesterday. Doing well this morning -He is okay for discharge from urology standpoint -He is tentatively scheduled as an outpatient on December 27 for bilateral ureteroscopy with holmium laser
--- NOTE | 2023-12-15 13:46 | P.DS ---
Providers Date of admission: 12/14/23 09:32 Expected date of discharge: 12/15/23 Attending physician: Lei Mancini MD Consults: 12/13/23 19:15 Consult Physician Routine Consulting Provider: Adolfo Meredith Consult Reason/Comments: Bilateral obstructing renal calculi Do you want consulting provider notified?: Already Contacted [facility] Course: Discharge Diagnosis: Obstructing ureteral calculi with hydronephrosis. Status post cystoscopy with right ureteroscopy and bilateral stent insertion. Renal mass. In regards to renal mass, patient under care of oncologist and scheduled for PET scan on 12/16/23. Esophageal cancer status post J-tube placement. Continue tube feedings and follow-up outpatient with oncologist as scheduled. History of kidney stones Hypertension Anxiety Hospital Course: Patient is a very pleasant 58-year-old male with a past medical history of esophageal cancer, J-tube placement, kidney stones, hypertension, and anxiety. He presented to the emergency department on 12/13/2023 with a chief complaint of right flank pain. He underwent evaluation in the emergency department. Vital signs upon arrival show blood pressure 150/91, heart rate 101, respiratory rate 18, temp 98.6 F, and SpO2 of 98% on room air. Labs completed and reviewed. CBC showing leukocytosis with WBC count of 16.5. BMP unremarkable with renal function showing BUN of 15, creatinine 0.74, and GFR greater than 90. Lactic acid was 2.0. Liver profile unremarkable. Amylase and lipase normal findings. Urinalysis positive for small amount of blood, 41 RBCs, and [address] abdomen and pelvis with IV contrast showing left abdominal percutaneous tubing entering the left upper quadrant jejunum, free air throughout the abdomen likely secondary to recent surgical intervention, mild left hydronephrosis secondary to obstructing 11 mm calculus at the ureteropelvic junction, mild hydronephrosis secondary to obstructing 6 mm calculus at the ureterovesicular junction, circumferential distal esophageal wall thickening compatible with malignancy, and adjacent lymph node remains present, bladder stone, and heterogenous right renal lesion possibly representing renal cell carcinoma. Patient admitted under our services with consultation to urology. On 12/14/2023 patient underwent cystoscopy with right ureteroscopy and bilateral stent insertion by Dr. Meredith. Urine culture negative. Patient medically stable at this time and has been cleared by urology perspective for discharge. Patient to follow-up outpatient with PCP in 1 to 2 days, urologist in 1 week, and oncologist as scheduled. Physical exam: Vital signs reviewed and stable. General: Nontoxic, no distress and appears stated age. Derm: Skin warm and dry, normal coloration for ethnicity. Head: Atraumatic, normocephalic and symmetric. Eyes: EOMs intact, no lid lag, and anicteric sclera Mouth: no lip lesions, mucus membranes moist Cardiovascular: regular rate and rhythm with normal S1S2, no murmur, positive posterior tibial pulses bilaterally, and cap refill < 2 seconds. Lungs: Respirations even, regular, and unlabored on room air. Lungs CTA bilaterally, no rhonchi, no rales, no wheezing, and no accessory muscle usage. Abdominal: soft, nontender to palpation, no guarding, no appreciable organomegaly. Gastric J-tube in place left upper quadrant surrounding insertion site showing no signs of erythema or infection.. Ext: ROM intact. No gross muscle atrophy, no edema, no contractures Neuro: Speech clear, face symmetrical and CN II-XII grossly intact with no noted focal neuro deficits Psych: Alert and oriented to person, place, time, and situation. Appropriate and pleasant affect. A total of 33 minutes of time were spent preparing this complex discharge summary. Pt was discharged on 12/15/2023 at 1:20 PM. Patient was seen independently by Nurse Practitioner. This document was prepared using [employer] dictation software. Please allow for errors in supervisor core shop while rare they do occur. Rodolfo Crenshaw NP rendered care for this patient independently, reviewed the findings and plan as documented in the note above. I did not physically speak with or examine the patient on this date Patient Condition at Discharge: Stable Plan - Discharge Summary Discharge Rx Participant: No New Discharge Prescriptions: No Action No Known Home Medications Discharge Medication List No Known Home Medications 12/13/23 [History] Follow up Appointment(s)/Referral(s): Adolfo Meredith MD [STAFF PHYSICIAN] - 1 Week Koffi Escamilla DO [Primary Care Provider] - 1-2 days Patient Instructions/Handouts: Kidney Stones (DC), Cystoscopy (DC), Ureteral Stent Placement (DC) Activity/Diet/Wound Care/Special Instructions: Activity: As tolerated. Take breaks as needed. Diet: Resume tube feeds. Special Instructions: Remember to keep all of your doctor's appointments and follow-up as needed. Thank you for allowing us to participate in your care, it was truly a pleasure having you for our patient!!! . Discharge Disposition: HOME SELF-CARE
== END 2023-12-15 13:59 | disposition home or self-care (01) | DRG 660 ==
LOC: EC 12:28 → 6NMEDSUR 19:17 → OBSVTOIN 12-14 09:32
PROVIDERS: ADMIT Student in an Organized Health Care Education/Training Program; ATTEND Student in an Organized Health Care Education/Training Program
PROC: 0T788DZ Dilation of Bilateral Ureters with Intraluminal Device, Via Natural or Artificial Opening Endoscopic (ICD-10-PCS; principal; 2023-12-14 12:45)
DX: N13.2 Hydronephrosis with renal and ureteral calculous obstruction (principal); C15.9 Malignant neoplasm of esophagus, unspecified; I10 Essential (primary) hypertension; F41.9 Anxiety disorder, unspecified; R13.10 Dysphagia, unspecified; N28.89 Other specified disorders of kidney and ureter; M54.50 Low back pain, unspecified; Z85.01 Personal history of malignant neoplasm of esophagus; Z87.442 Personal history of urinary calculi; Z93.4 Other artificial openings of gastrointestinal tract status
CPT/HCPCS: 36415; 74177; 80053; 81001; 82150; 83605; 83690; 83735; 85025; 85027; 87040; 87086; 96361; 96365; 96375; 96376; 99285

== ENCOUNTER → 2023-12-16 | Outpatient (CLI) | payer OTHER | END | disposition home or self-care (01) | LOC: RADPETMAIN 07:38 | PROVIDERS: ATTEND Internal Medicine Hematology & Oncology | DX: Z53.9 Procedure and treatment not carried out, unspecified reason (principal) ==

== ENCOUNTER → 2023-12-21 | Outpatient (CLI) | payer OTHER ==
[2023-12-21 16:11] LABS: Appearance,Urine Turbid (Clear); Bilirubin,Urine Small (Negative); Blood,Urine Large (Negative); Color,Urine Red (Yellow); Ketones,Urine Negative (Negative); Nitrite,Urine Negative (Negative); PH, Urine 7.5; Specific Gravity,Urine 1.012 (1.001-1.030)
[2023-12-21 16:19] LABS: Basophils # (A) 0.06 X 10*3/uL (0.00-0.10); Basophils % (A) 0.5 %; Eosinophils # (A) 0.37 X 10*3/uL (0.04-0.35); Eosinophils % (A) 3.2 %; HGB 14.8 g/dL (13.0-17.0); Lymphocytes # (A) 1.15 X 10*3/uL (0.90-5.00); Lymphocytes % (A) 9.8 %; MCH 30.8 pg (27.0-32.0); MCHC 32.2 g/dL (32.0-37.0); MCV 95.8 FL (80.0-97.0); Mean Platelet Volume 11.5 FL (9.5-12.2); Monocytes # (A) 0.74 X 10*3/uL (0.20-1.00); Monocytes % (A) 6.3 %; NRBC Per 100 WBC 0 X 10*3/uL (0.00-0.01); Neutrophils # (A) 9.32 X 10*3/uL (1.80-7.70); Neutrophils % (A) 79.9 %; Platelet Count 334 X 10*3/uL (140-440); RDW 13.2 % (11.5-14.5); WBC 11.68 X 10*3/uL (4.50-10.00)
[2023-12-21 16:23] LABS: Blood Urea Nitrogen 18.2 mg/dL (9.0-27.0); Calcium 9.9 mg/dL (8.7-10.3); Carbon Dioxide 24.9 mmol/L (21.6-31.8); Chloride 103 mmol/L (96-109); Glucose 96 mg/dL (70-110); Potassium 4.7 mmol/L (3.5-5.5); Sodium 142 mmol/L (135-145)
[2023-12-21 16:32] LABS: Bacteria,Urine None Seen (None Seen)
== END | disposition home or self-care (01) ==
LOC: LABPAT 09:50
PROVIDERS: ATTEND Urology
DX: Z01.812 Encounter for preprocedural laboratory examination (principal); N20.1 Calculus of ureter
CPT/HCPCS: 80048; 81001; 85025; 87086

== ENCOUNTER → 2023-12-23 | Outpatient (CLI) | payer OTHER ==
--- NOTE | 2023-12-24 16:22 | PE ---
EXAMINATION TYPE: PET CT fusion skull to thigh DATE OF EXAM: 12/23/2023 COMPARISON: 12/13/2023 Prior PET/CT: None at this location HISTORY: Esophageal cancer TECHNIQUE: Following the intravenous administration of 9.35 mCi of F-18 FDG, whole body images are p erformed from the skull base to the midthigh. Images are reviewed on the computer in the coronal, ax ial, and sagittal planes. Reconstructed rotating images are created on independent workstation and r eviewed on the computer. A localization and attenuation correction CT is performed in conjunction w ith the PET scan. DLP: 1004.34 mGycm SCAN: Initial Blood glucose: 90 mg/dL Average Mediastinum SUV: 2.32 Average Liver SUV: 3.13 FINDINGS: NECK: No abnormal uptake THORAX: There is a superior thoracic inlet lymph node which has uptake measuring 7.56. Image 75 There is uptake at the lower esophagus compatible with the patient's known cancer measuring 15.49. ABDOMEN: There may be a small paraesophageal or upper abdominal lymph node, image 134 with an SUV of 9.82. An additional epigastric lymph node is within the abdomen, image 140, SUV 8.51. PELVIS: No abnormal uptake OSSEOUS STRUCTURES: No abnormal uptake LOCALIZATION CT: There is a mass on the lateral right kidney with intermediate signal SUV 4.24, image 165. COMPARISON: Right renal mass was present previously. There is fullness in the distal esophagus. The p araesophageal adenopathy is not readily apparent by localization CT. IMPRESSION: 1. Uptake within the patient's known esophageal neoplasm distal esophagus. Couple of adjacent small l ymph nodes are likely present with uptake suggesting metastasis. 2. There is a distant punctate lymph node with uptake at the right thoracic inlet suspicious for meta stasis. 3. Intermediate uptake within the right renal mass. Neoplasm is not excluded and additional evaluatio n is recommended.
== END | disposition home or self-care (01) ==
LOC: RADPETMAIN 06:28
PROVIDERS: ATTEND Internal Medicine Hematology & Oncology
DX: C15.5 Malignant neoplasm of lower third of esophagus (principal)
CPT/HCPCS: 78815; A9552

== ENCOUNTER 2023-12-28 06:15 | Day surgery (SDC) | payer OTHER ==
[2023-12-23 10:51] VITALS: BMI 36.0
[2023-12-28] MEDS ORDERED: HYDROmorphone 0.5 MG/0.5 ML SYRINGE IVP PRN (07:00)
[2023-12-28] MEDS ORDERED: MIDAZOLAM 2 MG/2 ML VIAL IV PRN (07:00)
[2023-12-28] MEDS: ONDANSETRON 4 MG/2 ML VIAL IVP ONE (07:02)
[2023-12-28] MEDS: LIDOCAINE 1% (10MG/ML) FOR IV START INTRADERMA PRN (07:02)
[2023-12-28] MEDS: LACTATED RINGERS 1,000 ML IV SCH (07:02)
[2023-12-28] MEDS: DEXAMETHASONE SOD PHOSPHATE 4 MG/ML 1 ML VIAL IV ONE (07:03)
[2023-12-28] MEDS: FAMOTIDINE 20 MG/2 ML VIAL IV ONE (07:18)
[2023-12-28] MEDS ORDERED: PROPOFOL 10 MG/ML 20 ML VIAL IV ONE (07:32)
[2023-12-28] MEDS ORDERED: LIDOCAINE 1% INJ 10MG/ML (20 ML MDV) ONE (07:32)
[2023-12-28] MEDS ORDERED: fentaNYL (PF) 50 MCG/ML 2 ML AMP ONE (07:32)
[2023-12-28] MEDS ORDERED: MIDAZOLAM 2 MG/2 ML VIAL ONE (07:32)
[2023-12-28] MEDS ORDERED: SUCCINYLCHOLINE CHLORIDE 200 MG/10 ML VIAL IV ONE (07:32)
--- NOTE | 2023-12-28 07:41 | P.HPIHPCON ---
History of Present Illness H&P Date: 12/28/23 Chief Complaint: Bilateral ureteral stones This is a 58-year-old male with history of bilateral ureteral stone status post stent insertions on December 13. He has history of a 1.1 cm left-sided UPJ stone, and a 6 mm right-sided distal ureteral stone. Option of bilateral ureteroscopy with holmium laser was discussed with him. Aware the risk which includes but not limited to bleeding, infection, injury to the ureter. Risk of anesthesia was also discussed. He understood all the risk and agreed to proceed Consent for Procedure: I have explained the operation/procedure to the patient, including the risks, benefits, side effects, alternative therapies (including not receiving the proposed treatment or service), the likelihood of the patient achieving his/her goals, and potential recuperation problems for the procedure/sedation/analgesia, as well as any blood products, if indicated. I also explained to the patient the risks, benefits and side effects of the alternatives, as well as the risks related to not receiving the proposed procedure, care, treatment, or services. Past Medical History Past Medical History: Cancer Additional Past Medical History / Comment(s): States nausea after eating, states lots of gas after eating. Esophageal cancer 11/2023, j-tube 11/2023, stents for kidney stones. History of Any Multi-Drug Resistant Organisms: None Reported Past Surgical History: No Surgical Hx Reported Additional Past Surgical History / Comment(s): EGD. J-tube 11/2023, Stents for kidney stones. Past Anesthesia/Blood Transfusion Reactions: No Reported Reaction Additional Past Anesthesia/Blood Transfusion Reaction / Comment(s): Has never had anesthesia. Past Psychological History: Anxiety Smoking Status: Never smoker Past Alcohol Use History: None Reported Additional Past Alcohol Use History / Comment(s): Has not had any alcohol for 2 weeks. Past Drug Use History: None Reported - Past Family History Mother Family Medical History: Cancer Father Family Medical History: Cancer Medications and Allergies Home Medications Medication Instructions Recorded Confirmed Type Metoprolol Succinate [Toprol XL] 100 mg PO BID 12/23/23 12/28/23 History Verapamil HCl [Verapamil ER] 120 mg PO DAILY 12/23/23 12/28/23 History clonazePAM [KlonoPIN] 0.5 mg PO BID PRN 12/23/23 12/28/23 History Allergies Allergy/AdvReac Type Severity Reaction Status Date / Time niacin Allergy Rash/Hives Verified 12/28/23 06:43 Surgical - Exam Vital Signs Temp Pulse Resp BP Pulse Ox 97.0 F L 70 18 146/83 97 12/28/23 06:50 12/28/23 06:50 12/28/23 06:50 12/28/23 06:50 12/28/23 06:50 - General no distress, no pain - Eyes normal ocular movement, no pale - ENT normal nares, normal mucosa - Respiratory normal expansion, normal respiratory effort - Abdomen Abdomen: soft, non tender Assessment and Plan Assessment: OR for bilateral ureteroscopy, holmium laser lithotripsy, stone basketing and stent exchange
--- NOTE | 2023-12-28 08:02 | XR ---
EXAMINATION TYPE: XR KUB DATE OF EXAM: 12/28/2023 COMPARISON: 12/05/2023 INDICATION: Preop cystoscopy TECHNIQUE: Single view abdomen supine view FINDINGS: There is a normal bowel gas pattern. Psoas muscle shadows are normal. No organomegaly is present. Bilateral ureteral stents are present. Small 0.4 cm calcification may be within the urinary bladder i nferior pelvis, not present on comparison.. Phlebolith is within the differential There is a 1.5 cm calcification at the inferior pole left kidney. A 0.2 cm lateral inferior pole rafael l calcification is present. There is a 0.9 cm calcification at the inferior pole right kidney. IMPRESSION: 1. Bilateral renal stones. 2. Bilateral ureteral stents.
--- NOTE | 2023-12-28 09:24 | P.OP ---
Date of Procedure: 12/28/23 Preoperative Diagnosis: Bilateral ureteral stones Postoperative Diagnosis: Same Procedure(s) Performed: Cystoscopy, bilateral ureteroscopy, holmium laser lithotripsy, stone basketing, left stent exchange and right stent removal Implants: 6 [place]ian by 26 cm stent in the left ureter left on a string Anesthesia: ZACHERYA Surgeon: Adolfo Meredith Estimated Blood Loss (ml): 5 Pathology: other (bilateral ureteral stone) Condition: stable Disposition: PACU Indications for Procedure: This is a 58-year-old male with history of bilateral ureteral stone status post stent insertions on December 13. He has history of a 1.1 cm left-sided UPJ stone, and a 6 mm right-sided distal ureteral stone. Option of bilateral ureteroscopy with holmium laser was discussed with him. Aware the risk which includes but not limited to bleeding, infection, injury to the ureter. Risk of anesthesia was also discussed. He understood all the risk and agreed to proceed Operative Findings: Right-sided distal ureteral stone, previous left-sided proximal stone has migrated into the lower pole Description of Procedure: Patient brought to the operating room, general anesthesia was induced. He was prepped and draped in sterile fashion placed in a dorsolithotomy position. Cystoscopy through the 21 [place]ian sheath was inserted per urethra, cystoscopy was performed which showed no abnormality within the bladder. Attention was first carried to the right stent which was removed intact, there was moderate encrustation on the stent. Next a semirigid ureteroscope was inserted per urethra and advanced up the right ureteral orifice, at this point a stone was encountered in the distal ureter. Using the holmium laser the stone was fragmented, sizable stone fragments were removed using the stone basket. At this time I advanced the ureteroscope all the way up to the proximal ureter which showed no additional stones, pullback ureteroscopy was performed which showed no any injury to the ureter or any sizable ureteral stone fragments, on fluoroscopy there is no additional radiopaque density seen along the course of the ureter or the kidney. At this time attention was carried to the left side, the cystoscope was reinserted per urethra, and the stent was grasped and removed to the meatus. Next a sensor wire was advanced through the stent, the stent was removed with the wire in place. Next under fluoroscopy 1113 [place]ian access sheath was passed over the wire and into the proximal ureter. Next a flexible ureteroscope was inserted through the access sheath, renoscopy was performed which showed a large stone in the lower pole, and additional smaller stone in the midpole. Using the holmium laser both stones were dusted, sizable stone fragments were removed using the stone basket. Repeat renoscopy showed no injury to the kidney or any sizable fragments, on fluoroscopy there was no radiopaque densities visualized. At this point pullback ureteroscopy was performed which showed no injury to the ureter or any ureteral stones, as ureteroscope was withdrawn and a sensor wire was advanced through. Next a ureteral stent was passed over the wire, the proximal curl was visualized on fluoroscopy and the distal curl was visualized in the cystoscope. The stent was left on a string and taped to the patient penis. Patient tolerated procedure well sent recovery in stable condition
[2023-12-28 09:28] VITALS: TEMP 98.1
--- NOTE | 2023-12-28 09:33 | FL ---
EXAMINATION TYPE: FL guidance operating room Intraoperative/procedural fluoroscopic services were pro vided. Total fluoroscopy time is 29.8 seconds with a total of 8 submitted images to PACS. Please see the operative/procedural note for further details. DAP: [id number] mGym2
[2023-12-28 10:56] VITALS: BP 123/84; PULSE 72; RESP 16
== END 2023-12-28 11:05 | disposition home or self-care (01) ==
LOC: OR 06:15
PROVIDERS: ATTEND Urology
DX: N20.2 Calculus of kidney with calculus of ureter (principal); F41.9 Anxiety disorder, unspecified; Z85.01 Personal history of malignant neoplasm of esophagus; Z79.899 Other long term (current) drug therapy
CPT/HCPCS: 52356; 82365; 74018; C2625; C1894; C1769; J2250; J0330; J1100; J0690; J2405; J2001; J3010; J3490; J2704

== ENCOUNTER 2024-01-05 06:10 | Day surgery (SDC) | payer OTHER ==
[2024-01-04 11:14] VITALS: BMI 37.3
[2024-01-05] MEDS: LIDOCAINE 1% INJ 10MG/ML (20 ML MDV) SQ ONE (07:26)
--- NOTE | 2024-01-05 07:38 | P.OP ---
Date of Procedure: 01/05/24 Description of Procedure: Date of Procedure: 01/05/2024 Preoperative Diagnosis: Esophageal cancer, need for chemotherapy Postoperative Diagnosis: Same. Procedure(s) Performed: Ultrasound-guided cannulation left cephalic vein. Insertion of peripherally inserted central catheter under fluoroscopic guidance. Anesthesia: local (1% Xylocaine.) Surgeon: Lelia Estimated Blood Loss (ml): 5 IV fluids (ml): 0 Urine output (ml): 0 Pathology: none sent Condition: stable Disposition: no change Indications for Procedure: Patient is a 58-year-old male with esophageal cancer. Patient will require IV access for chemotherapy as an outpatient patient is offered a PICC line. Description of Procedure: Patient was brought to the special procedure suite. The left upper extremity sterilely prepped and draped in usual manner. Ultrasound was utilized to identify the cephalic vein which was normally compressible free of visible thrombus. Permenant image was stored. 1% Xylocaine was utilized for local anesthesia tissues overlying the vein. Through this anesthetized area and with the aid of ultrasound a micropuncture needle was utilized to cannulate the vein. Once cannulated, Softip guidewire was advanced into the vein. The needle was withdrawn and a micropuncture sheath and dilator advanced over the guidewire. The guidewire was withdrawn and exchanged for the PICC guidewire and measured 49 cm to the cavoatrial junction. The catheter was cut to size and advanced into the cavoatrial junction without resistance. The sheath was peeled away. Blood was easily withdrawn through the catheter and the catheter was then flushed with heparinized saline solution and secured to the skin. Patient tolerated procedure well and was returned to their room in satisfactory and stable condition.
--- NOTE | 2024-01-05 20:48 | IR ---
EXAMINATION TYPE: IR cvc insert >=5 years DATE OF EXAM: 01/05/2024 FLUOROSCOPY Chemo, 0.3min/0.7020 Gycm2 DAP, 4F 49cm lt cephalic PICC line. No images provided.
== END 2024-01-05 07:58 | disposition home or self-care (01) ==
LOC: CATHCVL 06:10
PROVIDERS: ATTEND Surgery
DX: C15.5 Malignant neoplasm of lower third of esophagus (principal)
CPT/HCPCS: 36573; C1751; C1769; J2001

== ENCOUNTER 2024-01-08 10:44 | Observation (INO) | payer OTHER ==
--- NOTE | 2024-01-08 11:13 | ED ---
General Adult HPI - General Chief complaint: Chest Pain Stated complaint: Chest Pain Time Seen by Provider: 01/08/24 10:50 Source: patient, RN notes reviewed Mode of arrival: ambulatory Limitations: no limitations - History of Present Illness Initial comments: Patient is a 58-year-old male presenting to the emergency department with chest discomfort. Onset of symptoms was around 8 PM yesterday. Discomfort is rated 7/10. Discomfort has been persistent. Discomfort does increase with deep breaths and position changes. No history of similar symptoms previously. No dyspnea. No nausea or vomiting. No diaphoresis. Patient did have his fifth treatment of radiation for esophageal cancer yesterday. Patient also had his first chemotherapy within this week. - Related Data Home Medications Medication Instructions Recorded Confirmed Verapamil [Isoptin] 40 mg PO BID 01/04/24 01/08/24 Metoprolol Tartrate [Lopressor] 100 mg PO BID 01/08/24 01/08/24 Ondansetron Odt [Zofran Odt] 4 - 8 mg PO Q4H PRN 01/08/24 01/08/24 clonazePAM [Klonopin ODT] 0.25 mg PO BID PRN 01/08/24 01/08/24 Allergies Allergy/AdvReac Type Severity Reaction Status Date / Time niacin Allergy Rash/Hives Verified 01/08/24 11:59 Review of Systems ROS Statement: Those systems with pertinent positive or pertinent negative responses have been documented in the HPI. ROS Other: All systems not noted in ROS Statement are negative. Constitutional: Denies: fever Eyes: Denies: eye pain ENT: Denies: ear pain Respiratory: Denies: dyspnea Cardiovascular: Reports: as per HPI, chest pain Endocrine: Denies: fatigue Gastrointestinal: Denies: abdominal pain Genitourinary: Denies: dysuria Musculoskeletal: Denies: back pain Skin: Denies: rash Past Medical History Past Medical History: Cancer, Hyperlipidemia, Hypertension Additional Past Medical History / Comment(s): Esophageal cancer 11/2023, j-tube 11/2023. Hx of kidney stones. 1st radiation tx 01-03-24. First chemo tx 11-05-23. History of Any Multi-Drug Resistant Organisms: None Reported Past Surgical History: No Surgical Hx Reported Additional Past Surgical History / Comment(s): EGD x2. J-tube 11/2023. Lithotripsy December 2023. Had stents ureteral removed . Past Anesthesia/Blood Transfusion Reactions: No Reported Reaction Additional Past Anesthesia/Blood Transfusion Reaction / Comment(s): No hx of blood transfusion. Past Psychological History: Anxiety Smoking Status: Never smoker Past Alcohol Use History: None Reported Past Drug Use History: None Reported - Past Family History Mother Family Medical History: Cancer Father Family Medical History: Cancer Sister(s) Family Medical History: Cancer Additional Family Medical History / Comment(s): breast General Exam Limitations: no limitations General appearance: alert, in no apparent distress Head exam: Present: normocephalic Eye exam: Present: normal appearance ENT exam: Present: other (Mild white coating to the anterior tongue) Neck exam: Present: normal inspection Respiratory exam: Present: normal lung sounds bilaterally. Absent: chest wall tenderness Cardiovascular Exam: Present: regular rate, normal rhythm, normal heart sounds Expanded Peripheral pulses: 2+: Radial (R), Radial (L), Posterior Tibialis (R), Posterior Tibialis (L) GI/Abdominal exam: Present: soft. Absent: tenderness Extremities exam: Present: normal inspection. Absent: pedal edema, calf tenderness Neurological exam: Present: alert Psychiatric exam: Present: normal affect, normal mood Skin exam: Present: normal color Course Vital Signs 01/08/24 01/08/24 01/08/24 10:46 11:01 13:08 Temperature 98.1 F Pulse Rate 89 93 90 Respiratory 20 18 18 Rate Blood Pressure 129/89 116/68 108/64 O2 Sat by Pulse 99 96 97 Oximetry EKG Findings - EKG Results: EKG: interpreted by ERMD (Left axis.), sinus rhythm, normal QRS, normal ST/T Medical Decision Making - Medical Decision Making Was pt. sent in by a medical professional or institution (, PA, [facility], urgent care, hospital, or intermediate...) When possible be specific @ -Patient was sent in by his oncology Did you speak to anyone other than the patient for history (EMS, parent, family, police, friend...)? What history was obtained from this source @ -Family is present and helps provide history including allergy history Did you review nursing and triage notes (agree or disagree)? Why? @ -I reviewed and agree with nursing and triage notes Were old charts reviewed (outside hosp., previous admission, EMS record, old EKG, old radiological studies, urgent care reports/EKG's, intermediate records)? Report findings @ -No old charts were reviewed Differential Diagnosis (chest pain, altered mental status, abdominal pain women, abdominal pain men, vaginal bleeding, weakness, fever, dyspnea, syncope, headache, dizziness, GI bleed, back pain, seizure, CVA, palpatations, mental health, musculoskeletal)? @ -Differential Chest Pain: Stable Angina, Unstable Angina, STEMI, NSTEMI Aortic Dissection, Pneumothorax, Musculoskeletal, Esophageal Spasm GERD, Cholecystitis, Pancreatitis, Zoster, this is not meant to be an all-inclusive list. EKG interpreted by me (3pts min.). @ -As above X-rays interpreted by me (1pt min.). @ -None done CT interpreted by me (1pt min.). @ -CT scan of the chest shows no definitive pulmonary embolism, suboptimal study. Renal mass. Lymph nodes. Esophageal change U/S interpreted by me (1pt. min.). @ -None done What testing was considered but not performed or refused? (CT, X-rays, U/S, labs)? Why? @ -None What meds were considered but not given or refused? Why? @ -None Did you discuss the management of the patient with other professionals (professionals i.e. , PA, [facility], lab, RT, psych nurse, rn social work, apron worker, teacher, juvenile justice officer, returned case inspector)? Give summary @ -Case was discussed with Dr. Mullins who will admit covering Dr. Escamilla Was smoking cessation discussed for >3mins.? @ -No Was critical care preformed (if so, how long)? @ -No Were there social determinants of health that impacted care today? How? (Homelessness, low income, unemployed, alcoholism, drug addiction, transporta tion, low edu. Level, literacy, decrease access to med. care, long term, rehab)? @ -No Was there de-escalation of care discussed even if they declined (Discuss DNR or withdrawal of care, Hospice)? DNR status @ -No What co-morbidities impacted this encounter? (DM, HTN, Smoking, COPD, CAD, Cancer, CVA, ARF, Chemo, Hep., AIDS, mental health diagnosis, sleep apnea, morbid obesity)? @ - Esophageal cancer and possible renal cell cancer Was patient admitted / discharged? Hospital course, mention meds given and route, prescriptions, significant lab abnormalities, going to OR and other pertinent info. @ -Patient reevaluated and still having discomfort. Patient and family updated on results and plan. VQ scan has been ordered. Patient will be admitted, orders written. Undiagnosed new problem with uncertain prognosis? @ -No Drug Therapy requiring intensive monitoring for toxicity (Heparin, Nitro, Insulin, Cardizem)? @ -No Were any procedures done? @ -No Diagnosis/symptom? @ -Chest pain Acute, or Chronic, or Acute on Chronic? @ -Acute Uncomplicated (without systemic symptoms) or Complicated (systemic symptoms)? @ -Default Side effects of treatment? @ -No Exacerbation, Progression, or Severe Exacerbation? @ -No Poses a threat to life or bodily function? How? (Chest pain, [place], [place], pneumonia, PE, COPD, DKA, ARF, appy, cholecystitis, CVA, Diverticulitis, Homicidal, Suicidal, threat to staff... and all critical care pts) @ -No - Lab Data Result diagrams: 01/08/24 11:15 01/08/24 11:15 Lab Results 01/08/24 01/08/24 01/08/24 Range/Units 11:15 11:15 11:15 WBC 13.5 H (3.8-10.6) k/uL RBC 4.35 (4.30-5.90) m/uL Hgb 13.5 (13.0-17.5) gm/dL Hct 40.8 (39.0-53.0) % MCV 94.0 (80.0-100.0) fL MCH 31.0 (25.0-35.0) pg MCHC 33.0 (31.0-37.0) g/dL RDW 13.1 (11.5-15.5) % Plt Count 183 (150-450) k/uL MPV 9.1 Neutrophils % 92 % Lymphocytes % 2 % Monocytes % 5 % Eosinophils % 0 % Basophils % 0 % Neutrophils # 12.4 H (1.3-7.7) k/uL Lymphocytes # 0.3 L (1.0-4.8) k/uL Monocytes # 0.7 (0-1.0) k/uL Eosinophils # 0.1 (0-0.7) k/uL Basophils # 0.0 (0-0.2) k/uL PT 9.7 L (10.0-12.5) sec INR 0.9 (<1.2) APTT 27.2 (22.0-30.0) sec Sodium 136 L (137-145) mmol/L Potassium 5.3 H (3.5-5.1) mmol/L Chloride 105 (98-107) mmol/L Carbon Dioxide 25 (22-30) mmol/L Anion Gap 6 mmol/L BUN 21 H (9-20) mg/dL Creatinine 0.46 L (0.66-1.25) mg/dL Est GFR (CKD-EPI)AfAm >90 (>60 ml/min/1.73 sqM) Est GFR (CKD-EPI)NonAf >90 (>60 ml/min/1.73 sqM) Glucose 98 (74-99) mg/dL Calcium 9.0 (8.4-10.2) mg/dL Magnesium 2.1 (1.6-2.3) mg/dL Total Bilirubin 1.5 H (0.2-1.3) mg/dL AST 33 (17-59) U/L ALT 17 (4-49) U/L Alkaline Phosphatase 85 (38-126) U/L Troponin I (0.000-0.034) ng/mL Total Protein 6.9 (6.3-8.2) g/dL Albumin 3.6 (3.5-5.0) g/dL Lipase 179 (23-300) U/L 01/08/24 Range/Units 11:15 WBC (3.8-10.6) k/uL RBC (4.30-5.90) m/uL Hgb (13.0-17.5) gm/dL Hct (39.0-53.0) % MCV (80.0-100.0) fL MCH (25.0-35.0) pg MCHC (31.0-37.0) g/dL RDW (11.5-15.5) % Plt Count (150-450) k/uL MPV Neutrophils % % Lymphocytes % % Monocytes % % Eosinophils % % Basophils % % Neutrophils # (1.3-7.7) k/uL Lymphocytes # (1.0-4.8) k/uL Monocytes # (0-1.0) k/uL Eosinophils # (0-0.7) k/uL Basophils # (0-0.2) k/uL PT (10.0-12.5) sec INR (<1.2) APTT (22.0-30.0) sec Sodium (137-145) mmol/L Potassium (3.5-5.1) mmol/L Chloride (98-107) mmol/L Carbon Dioxide (22-30) mmol/L Anion Gap mmol/L BUN (9-20) mg/dL Creatinine (0.66-1.25) mg/dL Est GFR (CKD-EPI)AfAm (>60 ml/min/1.73 sqM) Est GFR (CKD-EPI)NonAf (>60 ml/min/1.73 sqM) Glucose (74-99) mg/dL Calcium (8.4-10.2) mg/dL Magnesium (1.6-2.3) mg/dL Total Bilirubin (0.2-1.3) mg/dL AST (17-59) U/L ALT (4-49) U/L Alkaline Phosphatase (38-126) U/L Troponin I <0.012 (0.000-0.034) ng/mL Total Protein (6.3-8.2) g/dL Albumin (3.5-5.0) g/dL Lipase (23-300) U/L Disposition Clinical Impression: Chest pain Disposition: ADMITTED IP TO THIS HOSP Is patient prescribed a controlled substance at d/c from ED?: No Referrals: Koffi Escamilla DO [Primary Care Provider] - 1-2 days Time of Disposition: 14:32
[2024-01-08] MEDS: SODIUM CHLORIDE 0.9% 1,000 ML IV STA (11:21)
[2024-01-08] MEDS: MORPHINE SULFATE 4 MG/ML SYRINGE IVP STA (11:22)
[2024-01-08] MEDS: FAMOTIDINE 20 MG/2 ML VIAL IV STA (11:23)
[2024-01-08 11:46] LABS: Basophils % (A) 0 %; Eosinophils # (A) 0.1 k/uL (0-0.7); Eosinophils % (A) 0 %; HCT 40.8 % (39.0-53.0); HGB 13.5 gm/dL (13.0-17.5); Lymphocytes # (A) 0.3 k/uL (1.0-4.8); Lymphocytes % (A) 2 %; Mean Platelet Volume 9.1; Monocytes # (A) 0.7 k/uL (0-1.0); Monocytes % (A) 5 %; Neutrophils # (A) 12.4 k/uL (1.3-7.7); Neutrophils % (A) 92 %; Platelet Count 183 k/uL (150-450); RBC 4.35 m/uL (4.30-5.90); RDW 13.1 % (11.5-15.5); WBC 13.5 k/uL (3.8-10.6)
[2024-01-08 12:01] LABS: ALT 17 U/L (4-49); AST 33 U/L (17-59); African American GFR (CKD) >90 (>60 ml/min/1.73 sqM); Albumin 3.6 g/dL (3.5-5.0); Alkaline Phosphatase 85 U/L (38-126); Anion Gap 6 mmol/L; Blood Urea Nitrogen 21 mg/dL (9-20); Carbon Dioxide 25 mmol/L (22-30); Chloride 105 mmol/L (98-107); Glucose 98 mg/dL (74-99); Lipase 179 U/L (23-300); Magnesium 2.1 mg/dL (1.6-2.3); Non-African American GFR(CKD) >90 (>60 ml/min/1.73 sqM); Sodium 136 mmol/L (137-145); Total Bilirubin 1.5 mg/dL (0.2-1.3); Total Protein 6.9 g/dL (6.3-8.2)
[2024-01-08 12:02] LABS: Potassium 5.3 mmol/L (3.5-5.1)
[2024-01-08 13:04] LABS: INR 0.9 (<1.2); Partial Thromboplastin Time 27.2 sec (22.0-30.0); Prothrombin Time 9.7 sec (10.0-12.5)
--- NOTE | 2024-01-08 13:08 | CT ---
EXAMINATION TYPE: CT angio chest DATE OF EXAM: 01/08/2024 COMPARISON: 11/19/2023 HISTORY: 58-year-old male with chest pain and dyspnea TECHNIQUE: Contiguous axial scanning of the chest after the administration of 100 mL of Isovue 370. Coronal/sagittal MIP reconstructions performed. CT DLP: 707.1mGycm. Automatic exposure control utilized for a dose reduction. FINDINGS: The heart is normal size without pericardial effusion. No flattening of the interventricular septum r eflux of contrast into the hepatic veins. 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 Bovine configuration to th e aortic arch. A right sided thoracic inlet lymph node has enlarged to 2.1 cm versus 1.2 cm, previously. No other th oracic lymphadenopathy. Mildly enlarged caliber to the main right and left pulmonary arteries up to 2.8 cm may reflect pulmon leonard arterial hypertension. There is suboptimal contrast bolus limiting the examination. Further limitation due to beam hardening artifact from dense contrast in the SVC and breathing motion as well. No obvious large central or sa ddle embolus is seen. Many of the lobar, segmental, and more distal branches are markedly limited and emboli here cannot be excluded on the basis of this exam. For example, an area in the right upper lo be is equivocal, axial image 54 and 55. Mild diffuse bronchial wall thickening. Prominent dependent opacities in the lower lungs. No pleural effusion. Increasing rounded soft tissue fullness at the GE junction compatible with known neoplasm. An adjacen t right retrocrural lymph node measures 2.8 cm, unchanged. Mild circumferential wall thickening dista l esophagus. Otherwise, visualized upper abdomen shows bilateral renal cysts measuring up to 3.6 cm on left. Possi ble 6.7 cm suspicious mass right kidney. Bilateral renal calculi are present measuring up to 5 mm on the right. 1 cm on the left. There is a 6 mm stone in the left major calyceal system that could pass in the near future. Bones: Mild to moderate degenerative disc disease lower thoracic spine. IMPRESSION: 1. Suboptimal assessment for PE due to suboptimal contrast bolus, contrast artifacts, and breathing m otion. No large central or saddle embolus. Many of the other branches are nondiagnostic and emboli in these locations cannot be excluded on the basis of this exam. A small branch in the right upper lobe , axial image 54 and 55, is equivocal. 2. Prominent dependent bilateral lower lobe opacification, likely atelectasis. Bronchial wall thicken ing could reflect bronchitis or asthma. 3. Slightly larger distal esophageal cancer. An adjacent 2.8 cm right retrocrural metastatic lymph no de is similar. However, a right superior mediastinal lymph node is larger at 2.1 cm versus 1.2 cm, pr eviously, favoring metastatic disease. 4. A possible 6.7 cm suspicious mass of the lateral right kidney. 5. Mild circumferential wall thickening distal esophagus. Correlate for any symptoms of mild esophagi tis. 6. A 6 mm stone in the left renal collecting system could pass in the near future.
[2024-01-08] MEDS: HYDROmorphone 0.5 MG/0.5 ML SYRINGE IVP STA (13:14)
[2024-01-08] MEDS ORDERED: NALOXONE 0.4 MG/ML 1 ML VIAL IV PRN (14:32)
[2024-01-08] MEDS ORDERED: ACETAMINOPHEN TAB 325 MG TAB PO PRN (14:32)
[2024-01-08] MEDS ORDERED: ONDANSETRON 4 MG/2 ML VIAL IVP PRN (14:32)
[2024-01-08] MEDS ORDERED: clonazePAM 0.5 MG TAB PO PRN (14:49)
[2024-01-08] MEDS ORDERED: ONDANSETRON ODT 4 MG TAB PO PRN (14:49)
[2024-01-08] MEDS: ASPIRIN 81 MG PO STA (15:04)
[2024-01-08] MEDS: NYSTATIN 100,000 UNIT/ML SUSP 500,000 UNIT/5 ML CUP PO SCH (15:13)
--- NOTE | 2024-01-08 15:27 | P.HPIM ---
History of Present Illness H&P Date: 01/08/24 History of Presenting Illness: Patient is a very pleasant 58-year-old male with a past medical history of esophageal cancer, J-tube placement, kidney stones, hypertension, and anxiety. He presented to the emergency department with a chief complaint of chest pain. Patient reports he was relaxing yesterday evening watching TV in his recliner when he developed sudden onset pain to midsternal chest. Patient describes this pain as sharp and constant. He reports pain worsened upon taking a deep breath but did not go away between breaths. He recently underwent his first chemotherapy treatment on 01/04/2024 for his esophageal cancer followed by his first round (5 days) of radiation treatments completed yesterday. He remains NPO with the exception of small amount of water he mixes with his crushed medications. All nutrition comes from tube feeds. Patient reports he has had severe reflux in the past but states this pain is different. He states pain almost takes his breath away but that it is hard to explain because he is not short of breath. He denies having any dizziness, lightheadedness, headache, fevers, chills, palpitations, cough or congestion, or experiencing any numbness/tingling/weakness/swelling in his extremities. He reports pain initially waxed and waned and he thought it was may be just from his radiation treatments because he does not have any cardiac history, but when the pain persisted throughout the night he notified his sister to bring him to the hospital for evaluation. Patient underwent evaluation in the emergency department. Vital signs upon arrival show blood pressure 129/89, heart rate 89, respiratory rate 20, temp 98.1 F, and SpO2 of 99% on room air. EKG completed showing normal sinus rhythm at 88 bpm with no significant T wave or ST abnormalities showing no signs of acute ischemia upon personal review and interpretation. CTA chest was completed which reported suboptimal assessment for PE secondary to suboptimal contrast bolus and breathing motion, however did not reveal any large central or saddle emboli, also reported prominent dependent bilateral lower lobe opacification likely atelectasis with bronchial wall thickening and a slightly larger distal esophageal cancer with adjacent 2.8 cm retrocrural metastatic lymph node and a right superior mediastinal lymph node larger at 2.1 cm versus previous 1.2 cm concerning for metastasis, possible 6.7 cm suspicious mass of right lateral kidney, and mild circumferential wall thickening of distal esophagus along with a 6 mm stone in the left renal collecting system. Labs were completed and reviewed. CBC showing leukocytosis with WBC count of 13.5. Coagulation profile showing elevated PT of 9.7 otherwise normal findings. BMP revealing mild hyperkalemia with potassium of 5.3 but was a hemolyzed specimen and prerenal azotemia with BUN of 21. Liver profile showing elevated total bili of 1.5 otherwise normal findings. Troponin less than 0.012. And lipase of 179. ED physician placed for VQ scan and admitted patient under our services with consultation to cardiology and oncology. Review of systems: Pertinent positives and negatives as discussed in HPI, a complete review of systems was performed and all other systems are negative. Physical exam: Vital signs reviewed and stable. General: Nontoxic, no distress and appears stated age. Derm: Skin warm and dry, normal coloration for ethnicity. Head: Atraumatic, normocephalic and symmetric. Eyes: EOMs intact, no lid lag, and anicteric sclera Mouth: no lip lesions, mucus membranes moist Cardiovascular: regular rate and rhythm with normal S1S2, no murmur, positive posterior tibial pulses bilaterally, and cap refill < 2 seconds. Lungs: Respirations even, regular, and unlabored on room air. Lungs CTA bilaterally, no rhonchi, no rales, no wheezing, and no accessory muscle usage. Abdominal: soft, nontender to palpation, no guarding, no appreciable organomegaly. Gastric J-tube in place left upper quadrant surrounding insertion site showing no signs of erythema or infection.. Ext: ROM intact. No gross muscle atrophy, no edema, no contractures Neuro: Speech clear, face symmetrical and CN II-XII grossly intact with no noted focal neuro deficits Psych: Alert and oriented to person, place, time, and situation. Appropriate and pleasant affect. Assessment and Plan of Care: Chest pain, rule out acute coronary event -Cardiology consulted, appreciate recommendations -Telemetry monitoring -Trend troponins -Cardiac diet, NPO at midnight -Aspirin 81 mg daily, atorvastatin, -Lipid profile with a.m. labs. -Echocardiogram Esophageal cancer and renal mass status post J-tube placement. Oncology consulted and appreciate recommendations.. Patient to continue tube feedings as managed by dietitian and follow-up outpatient with oncologist as scheduled for continuation of chemotherapy and radiation therapy. Hypertension. Continue daily medication regimen with metoprolol tartrate 100 mg twice daily and verapamil 40 mg twice daily. Anxiety. Continue daily medication regimen with clonazepam 0.25 mg twice daily as needed for anxiety. History of recent kidney stones. Status post cystoscopy with right ureteroscopy and bilateral stent insertion on 12/14/2023 followed by lithotripsy and stent exchange on 12/28/2023. The patient is admitted with an anticipated less than 2 midnight stay for evaluation of chest pain. CODE STATUS: Full code DVT prophylaxis: Lovenox Anticipated discharge date: Clinical course to determine, likely within the next [address]: Clinical course to determine Patient was seen independently by Nurse Practitioner. This document was prepared using [employer] dictation software. Please allow for errors in puppet developer while rare they do occur. Rodolfo Crenshaw NP rendered care for this patient independently, reviewed the findings and plan as documented in the note above. I did not physically speak with or examine the patient on this date. Past Medical History Past Medical History: Cancer, Hyperlipidemia, Hypertension Additional Past Medical History / Comment(s): Esophageal cancer 11/2023, j-tube 11/2023. Hx of kidney stones. 1st radiation tx 01-03-24. First chemo tx 11-05-23. History of Any Multi-Drug Resistant Organisms: None Reported Past Surgical History: No Surgical Hx Reported Additional Past Surgical History / Comment(s): EGD x2. J-tube 11/2023. Lit hotripsy December 2023. Had stents ureteral removed . Past Anesthesia/Blood Transfusion Reactions: No Reported Reaction Additional Past Anesthesia/Blood Transfusion Reaction / Comment(s): No hx of blood transfusion. Past Psychological History: Anxiety Smoking Status: Never smoker Past Alcohol Use History: None Reported Past Drug Use History: None Reported - Past Family History Mother Family Medical History: Cancer Father Family Medical History: Cancer Sister(s) Family Medical History: Cancer Additional Family Medical History / Comment(s): breast Medications and Allergies Home Medications Medication Instructions Recorded Confirmed Type Verapamil [Isoptin] 40 mg PO BID 01/04/24 01/08/24 History Metoprolol Tartrate [Lopressor] 100 mg PO BID 01/08/24 01/08/24 History Ondansetron Odt [Zofran Odt] 4 - 8 mg PO Q4H PRN 01/08/24 01/08/24 History clonazePAM [Klonopin ODT] 0.25 mg PO BID PRN 01/08/24 01/08/24 History Allergies Allergy/AdvReac Type Severity Reaction Status Date / Time niacin Allergy Rash/Hives Verified 01/08/24 11:59 Physical Exam Vitals: Vital Signs Temp Pulse Resp BP Pulse Ox 01/08/24 15:02 93 16 116/84 96 01/08/24 13:08 90 18 108/64 97 01/08/24 11:01 93 18 116/68 96 01/08/24 10:46 98.1 F 89 20 129/89 99 Intake and Output 01/08/24 01/08/24 01/08/24 06:59 14:59 22:59 Intake Total 150 Balance 150 Intake: Tube Feeding 150 Other: Weight 107.501 kg Results CBC & Chem 7: 01/08/24 11:15 01/08/24 11:15 Labs: Abnormal Lab Results - Last 24 Hours (Table) 01/08/24 01/08/24 01/08/24 Range/Units 11:15 11:15 11:15 WBC 13.5 H (3.8-10.6) k/uL Neutrophils # 12.4 H (1.3-7.7) k/uL Lymphocytes # 0.3 L (1.0-4.8) k/uL PT 9.7 L (10.0-12.5) sec Sodium 136 L (137-145) mmol/L Potassium 5.3 H (3.5-5.1) mmol/L BUN 21 H (9-20) mg/dL Creatinine 0.46 L (0.66-1.25) mg/dL Total Bilirubin 1.5 H (0.2-1.3) mg/dL
[2024-01-08] MEDS: HYDROmorphone 0.5 MG/0.5 ML SYRINGE IVP PRN (16:49)
[2024-01-08] MEDS: MAG HYDROX/AL HYDROX/SIMETH 30 ML CUP PO STA (17:51)
--- NOTE | 2024-01-08 20:06 | NM ---
EXAMINATION TYPE: NM pul vent and perfuse DATE OF EXAM: 01/08/2024 CLINICAL INDICATION: Male, 58 years old with history of pain; COMPARISON: CT angiogram chest 01/08/2024 12:25 PM, I have no prior chest x-ray. TECHNIQUE: Utilizing inhalation of 64.7 mCi Tc 99m DTPA aerosol and intravenous injection of 5.23 mC i of Tc 99m MAA, ventilation and perfusion images are acquired post injection in multiple projections . Examination is reviewed using the modified PIOPED 2 criteria. FINDINGS: There may be a thin band of decreased activity on ventilation in the right mid to lower lung, with pr eserved perfusion, likely corresponding to the linear atelectasis seen on CT. There is otherwise homogeneous radiotracer activity throughout both lungs, with no appreciable perfus ion defects or areas of VQ mismatch identified. IMPRESSION: Pulmonary embolism absent (normal or very low probability).
[2024-01-08] MEDS: METOPROLOL TARTRATE 50 MG TAB PO SCH (21:44)
[2024-01-08] MEDS: VERAPAMIL 40 MG TAB PO SCH (21:44)
[2024-01-09] MEDS: PANTOPRAZOLE 40 MG/10 ML VIAL IV SCH (09:30)
[2024-01-09] MEDS: ENOXAPARIN 40 MG/0.4 ML SYRINGE SQ SCH (09:30)
[2024-01-09] MEDS: ASPIRIN 81 MG PO SCH (09:30)
[2024-01-09] MEDS: HYDROmorphone 1 MG/ML 1 ML SYRINGE IVP PRN (09:48)
[2024-01-09 09:57] LABS: ALT 10 U/L (10-49); AST 17 U/L (14-35); Albumin 3.2 g/dL (3.8-4.9); Albumin/Globulin Ratio 1.52 Ratio (1.60-3.17); Alkaline Phosphatase 66 U/L (41-126); Basophils # (A) 0.03 X 10*3/uL (0.00-0.10); Basophils % (A) 0.3 %; Blood Urea Nitrogen 18.6 mg/dL (9.0-27.0); Calcium 8.5 mg/dL (8.7-10.3); Carbon Dioxide 24.1 mmol/L (21.6-31.8); Chloride 105 mmol/L (96-109); Eosinophils # (A) 0.16 X 10*3/uL (0.04-0.35); Eosinophils % (A) 1.8 %; Globulin 2.1 g/dL (1.6-3.3); Glucose 91 mg/dL (70-110); HCT 35.1 % (39.6-50.0); HGB 11.3 g/dL (13.0-17.0); Lymphocytes # (A) 0.51 X 10*3/uL (0.90-5.00); Lymphocytes % (A) 5.7 %; MCH 30.9 pg (27.0-32.0); MCHC 32.2 g/dL (32.0-37.0); MCV 95.9 FL (80.0-97.0); Monocytes # (A) 0.41 X 10*3/uL (0.20-1.00); Monocytes % (A) 4.6 %; NRBC Per 100 WBC 0 X 10*3/uL (0.00-0.01); Neutrophils # (A) 7.81 X 10*3/uL (1.80-7.70); Platelet Count 161 X 10*3/uL (140-440); Potassium 4.7 mmol/L (3.5-5.5); RBC 3.66 X 10*6/uL (4.40-5.60); RDW 13.2 % (11.5-14.5); Sodium 137 mmol/L (135-145); Total Bilirubin 0.8 mg/dL (0.3-1.2); Total Protein 5.3 g/dL (6.2-8.2); WBC 8.97 X 10*3/uL (4.50-10.00)
--- NOTE | 2024-01-09 14:06 | P.CONS ---
History of Present Illness - Reason for Consult Consult date: 01/09/24 Esophageal squamous cell carcinoma - Chief Complaint Chest pain - History of Present Illness Mr. Peralta is a 58-year-old gentleman with a past medical history significant for stage III esophageal squamous cell carcinoma who initiated concurrent chemoradiotherapy with cycle 1 of weekly carboplatin/paclitaxel on 01/04/2024 who presents with chest pain. He notes having had pleuritic chest discomfort over the past few days, which was more prominent with inspiration. He noted catching his breath during inspiration. In the ED, he was hemodynamically stable and afebrile. CBC revealed WBC 13.5 ( ANC 12.4), hemoglobin 13.5, platelets 183. CMP revealed potassium 5.3 with total bilirubin 1.5. Lipase was normal at 179. Troponin was negative x 3. CTA of the chest revealed suboptimal assessment for PE due to suboptimal contrast bolus, but no large central or saddle embolus was noted. Bilateral lower lobe opacification consistent with possible atelectasis was noted. Esophageal mass along with known lymph node disease was also noted. A 6.7 cm suspicious mass in the lateral right kidney was noted. He was given full dose aspirin, Dilaudid 0.5 mg IV x 1, and Maalox. He was admitted to internal medicine for additional management. VQ scan obtained following admission low to normal or very low probability for pulmonary embolism. Since admission, he notes improved pleuritic chest discomfort. Prior to starting treatment at the beginning of this week, he had no pleuritic chest discomfort. He denies any recent URI illnesses prior to starting treatment this week. Review of Systems 14 point review of systems was conducted with pertinent positives and negatives as noted per HPI Past Medical History Past Medical History: Cancer, Hyperlipidemia, Hypertension Additional Past Medical History / Comment(s): Esophageal cancer 11/2023, j-tube 11/2023. Hx of kidney stones. 1st radiation tx 01-03-24. First chemo tx 11-05-23. History of Any Multi-Drug Resistant Organisms: None Reported Past Surgical History: No Surgical Hx Reported Additional Past Surgical History / Comment(s): EGD x2. J-tube 11/2023. Lithotripsy December 2023. Had stents ureteral removed . Past Anesthesia/Blood Transfusion Reactions: No Reported Reaction Additional Past Anesthesia/Blood Transfusion Reaction / Comm: No hx of blood transfusion. Past Psychological History: Anxiety Smoking Status: Never smoker Past Alcohol Use History: None Reported Past Drug Use History: None Reported - Past Family History Mother Family Medical History: Cancer Father Family Medical History: Cancer Sister(s) Family Medical History: Cancer Additional Family Medical History / Comment(s): breast Medications and Allergies Home Medications Medication Instructions Recorded Confirmed Type RX: Verapamil [Isoptin] 40 mg PO BID 01/04/24 01/08/24 History Metoprolol Tartrate [Lopressor] 100 mg PO BID 01/08/24 01/08/24 History Ondansetron Odt [Zofran Odt] 4 - 8 mg PO Q4H PRN 01/08/24 01/08/24 History clonazePAM [Klonopin ODT] 0.25 mg PO BID PRN 01/08/24 01/08/24 History Allergies Allergy/AdvReac Type Severity Reaction Status Date / Time niacin Allergy Rash/Hives Verified 01/08/24 11:59 Physical Exam Vitals: Vital Signs Temp Pulse Pulse Resp BP BP Pulse Ox 01/09/24 07:00 98.7 F 78 16 130/79 95 01/09/24 00:25 98.5 F 69 16 106/67 93 L 01/08/24 18:59 16 01/08/24 18:56 98.5 F 81 16 121/84 95 01/08/24 17:49 85 16 127/80 97 01/08/24 16:48 18 106/73 01/08/24 15:02 93 16 116/84 96 01/08/24 13:08 90 18 108/64 97 Intake and Output 01/08/24 01/09/24 01/09/24 22:59 06:59 14:59 Intake Total 150 Balance 150 Intake: Tube Feeding 150 Other: # Voids 1 1 Weight 107.501 kg - Constitutional General appearance: cooperative, no acute distress - EENT Eyes: EOMI - Respiratory Respiratory: bilateral: CTA - Cardiovascular Rhythm: regular - Gastrointestinal PEG tube site is clean/dry/intact with no erythema, phlebitis, or discharge General gastrointestinal: no distended, normal bowel sounds, soft, no tenderness - Integumentary Integumentary: no pale, no rash - Neurologic Neurologic: CNII-XII intact - Musculoskeletal No sternal chest wall discomfort on palpation Results CBC & Chem 7: 01/09/24 03:47 01/09/24 03:47 Labs: Abnormal Lab Results - Last 24 Hours (Table) 01/08/24 01/08/24 01/08/24 Range/Units 11:15 11:15 11:15 WBC 13.5 H (3.8-10.6) k/uL RBC (4.40-5.60) X 10*6/uL Hgb (13.0-17.0) g/dL Hct (39.6-50.0) % Immature Gran # (0.00-0.04) X 10*3/uL Neutrophils # 12.4 H (1.3-7.7) k/uL Lymphocytes # 0.3 L (1.0-4.8) k/uL PT 9.7 L (10.0-12.5) sec Sodium 136 L (137-145) mmol/L Potassium 5.3 H (3.5-5.1) mmol/L BUN 21 H (9-20) mg/dL Creatinine 0.46 L (0.66-1.25) mg/dL BUN/Creatinine Ratio (12.00-20.00) Ratio Calcium (8.7-10.3) mg/dL Total Bilirubin 1.5 H (0.2-1.3) mg/dL Total Protein (6.2-8.2) g/dL Albumin (3.8-4.9) g/dL Albumin/Globulin Ratio (1.60-3.17) Ratio 01/09/24 01/09/24 Range/Units 03:47 03:47 WBC (3.8-10.6) k/uL RBC 3.66 L (4.40-5.60) X 10*6/uL Hgb 11.3 L (13.0-17.0) g/dL Hct 35.1 L (39.6-50.0) % Immature Gran # 0.05 H (0.00-0.04) X 10*3/uL Neutrophils # 7.81 H (1.3-7.7) k/uL Lymphocytes # 0.51 L (1.0-4.8) k/uL PT (10.0-12.5) sec Sodium (137-145) mmol/L Potassium (3.5-5.1) mmol/L BUN (9-20) mg/dL Creatinine 0.5 L (0.66-1.25) mg/dL BUN/Creatinine Ratio 37.20 H (12.00-20.00) Ratio Calcium 8.5 L (8.7-10.3) mg/dL Total Bilirubin (0.2-1.3) mg/dL Total Protein 5.3 L (6.2-8.2) g/dL Albumin 3.2 L (3.8-4.9) g/dL Albumin/Globulin Ratio 1.52 L (1.60-3.17) Ratio CT scan - chest: report reviewed Assessment and Plan (1) Chest pain Current Visit: Yes Status: Acute Code(s): R07.9 - CHEST PAIN, UNSPECIFIED SNOMED Code(s): 68209556 (2) Esophageal cancer Current Visit: No Status: Acute Priority: Medium Code(s): C15.9 - MALIGNANT NEOPLASM OF ESOPHAGUS, UNSPECIFIED SNOMED Code(s): 148561421 Plan: Chest pain -Developed after starting concurrent chemoradiotherapy on 01/04/2024 with cycle 1 of weekly carboplatin/paclitaxel at that time -Denies any signs or symptoms consistent with infection -CTA of the chest was suboptimal, but did not reveal any definitive evidence of pulmonary embolism -VQ scan revealed no evidence of pulmonary embolism -Troponins are negative x 3 -I believe his chest discomfort is likely due to pleuritis secondary to radiation therapy -We will add Vivian 10/325 every 4 hours as needed and use this first preferentially to control pain based on oral morphine equivalent of 50 mg based on his Dilaudid use -Keep IV Dilaudid 0.5 mg IV for breakthrough pain to assess his pain requirement -Recommend holding regular ibuprofen for now as long as there is no definitive evidence of pericarditis due to increased risk of gastritis while undergoing concurrent chemoradiotherapy -Remainder of management per primary and cardiology teams, appreciate their assistance Stage III esophageal squamous cell carcinoma -Currently undergoing concurrent chemoradiotherapy with cycle 1 of weekly chemotherapy on 01/04/2024 -Cycle 2 would be due on 01/11/2024 -He may continue radiation therapy while he is inpatient -Cycle 2 of weekly carboplatin/paclitaxel would be continued if he is discharged before 01/11/2024 Henok Morrell MD
[2024-01-09] MEDS: HYDROcodone/APAP 10-325MG 1 EACH TAB PO PRN (15:07)
[2024-01-09] MEDS ORDERED: IBUPROFEN 400 MG TAB PO SCH (16:00)
--- NOTE | 2024-01-09 16:47 | P.PN ---
Subjective Progress Note Date: 01/09/24 Hospital Course: Patient is a very pleasant 58-year-old male with a past medical history of esophageal cancer, J-tube placement, kidney stones, hypertension, and anxiety. He presented to the emergency department with a chief complaint of chest pain. Patient reports he was relaxing yesterday evening watching TV in his recliner when he developed sudden onset pain to midsternal chest. Patient describes this pain as sharp and constant. He reports pain worsened upon taking a deep breath but did not go away between breaths. He recently underwent his first ch emotherapy treatment on 01/04/2024 for his esophageal cancer followed by his first round (5 days) of radiation treatments completed yesterday. He remains NPO with the exception of small amount of water he mixes with his crushed medications. All nutrition comes from tube feeds. Patient reports he has had severe reflux in the past but states this pain is different. He states pain almost takes his breath away but that it is hard to explain because he is not short of breath. He denies having any dizziness, lightheadedness, headache, fevers, chills, palpitations, cough or congestion, or experiencing any numbness/tingling/weakness/swelling in his extremities. He reports pain initially waxed and waned and he thought it was may be just from his radiation treatments because he does not have any cardiac history, but when the pain persisted throughout the night he notified his sister to bring him to the hospital for evaluation. Patient underwent evaluation in the emergency department. Vital signs upon arrival show blood pressure 129/89, heart rate 89, respiratory rate 20, temp 98.1 F, and SpO2 of 99% on room air. EKG completed showing normal sinus rhythm at 88 bpm with no significant T wave or ST abnormalities showing no signs of acute ischemia upon personal review and interpretation. CTA chest was completed which reported suboptimal assessment for PE secondary to suboptimal contrast bolus and breathing motion, however did not reveal any large central or saddle emboli, also reported prominent dependent bilateral lower lobe opacification likely atelectasis with bronchial wall thickening and a slightly larger distal esophageal cancer with adjacent 2.8 cm retrocrural metastatic lymph node and a right superior mediastinal lymph node larger at 2.1 cm versus previous 1.2 cm concerning for metastasis, possible 6.7 cm suspicious mass of right lateral kidney, and mild circumferential wall thickening of distal esophagus along with a 6 mm stone in the left renal collecting system. Labs were completed and reviewed. CBC showing leukocytosis with WBC count of 13.5. Coagulation profile showing elevated PT of 9.7 otherwise normal findings. BMP revealing mild hyperkalemia with potassium of 5.3 but was a hemolyzed specimen and prerenal azotemia with BUN of 21. Liver profile showing elevated total bili of 1.5 otherwise normal findings. Troponin less than 0.012. And lipase of 179. ED physician placed for VQ scan and admitted patient under our services with consultation to cardiology and oncology. VQ scan showing no evidence of pulmonary embolus with a normal or very low probability. Troponins trended overnight all negative at less than 0.012 x 3 draws. Physical exam: Patient seen and fully evaluated at bedside this morning. He continues to report pain to left anterior chest stating minimal at rest but does exacerbate with taking a deep breath. This is likely due to pleurisy. Vital signs reviewed and stable. General: Nontoxic, no distress and appears stated age. Derm: Skin warm and dry, normal coloration for ethnicity. Head: Atraumatic, normocephalic and symmetric. Eyes: EOMs intact, no lid lag, and anicteric sclera Mouth: no lip lesions, mucus membranes moist Cardiovascular: regular rate and rhythm with normal S1S2, no murmur, positive posterior tibial pulses bilaterally, and cap refill < 2 seconds. Lungs: Respirations even, regular, and unlabored on room air. Lungs CTA bilaterally, no rhonchi, no rales, no wheezing, and no accessory muscle usage. Abdominal: soft, nontender to palpation, no guarding, no appreciable organomegaly. Gastric J-tube in place left upper quadrant surrounding insertion site showing no signs of erythema or infection.. Ext: ROM intact. No gross muscle atrophy, no edema, no contractures Neuro: Speech clear, face symmetrical and CN II-XII grossly intact with no noted focal neuro deficits Psych: Alert and oriented to person, place, time, and situation. Appropriate and pleasant affect. Assessment and Plan of Care: Chest pain, acute coronary event ruled out -Chest pain worsens upon taking a deep breath likely pleurisy secondary to recently started radiation therapy -Cardiology consulted, appreciate recommendations -Telemetry monitoring -Troponins trended all negative at less than 0.012 x 3 draws. -Cardiac diet, NPO at midnight -Continue aspirin 81 mg daily -Lipid profile with a.m. labs. -Echocardiogram Esophageal cancer and renal mass status post J-tube placement. Oncology consulted and appreciate recommendations.. Patient to continue tube feedings as managed by dietitian and follow-up outpatient with oncologist as scheduled for continuation of chemotherapy and radiation therapy. Oral Thrush: Continue nystatin 5000 units 4 times daily Hypertension. Continue daily medication regimen with metoprolol tartrate 100 mg twice daily and verapamil 40 mg twice daily. Anxiety. Continue daily medication regimen with clonazepam 0.25 mg twice daily as needed for anxiety. History of recent kidney stones. Status post cystoscopy with right ureteroscopy and bilateral stent insertion on 12/14/2023 followed by lithotripsy and stent exchange on 12/28/2023. Data reviewed: Morning labs reviewed. CBC showing mild normocytic anemia with hemoglobin of 11.3 otherwise normal findings. BMP unremarkable. Blood glucose 91. Liver profile also normal findings. Troponin is trended and all negative at less than 0.012 x 3 draws. Vital signs reviewed. Blood pressure 130/79, heart rate 78, respiratory rate 16, temp 98.7 F, and SpO2 of 95% on room air. CODE STATUS: Full code DVT prophylaxis: Lovenox Anticipated discharge date: Clinical course to determine, likely within the next [address]: Clinical course to determine Patient was seen independently by Nurse Practitioner. This document was prepared using [employer] dictation software. Please allow for errors in pulp cooker while rare they do occur. Rodolfo Crensahw NP rendered care for this patient independently, reviewed the findings and plan as documented in the note above. I did not physically speak with or examine the patient on this date. Objective - Vital Signs Vital signs: Vital Signs Temp 98.7 F 01/09/24 07:00 Pulse 78 01/09/24 07:00 Resp 16 01/09/24 07:00 BP 130/79 01/09/24 07:00 Pulse Ox 95 01/09/24 07:00 FiO2 Intake & Output 01/08/24 01/09/24 01/09/24 18:59 06:59 18:59 Intake Total 150 Balance 150 Weight 107.501 kg Intake: Tube Feeding 150 Other: # Voids 1 - Labs CBC & Chem 7: 01/09/24 03:47 01/09/24 03:47 Labs: Abnormal Lab Results - Last 24 Hours (Table) 01/08/24 01/08/24 01/08/24 Range/Units 11:15 11:15 11:15 WBC 13.5 H (3.8-10.6) k/uL Neutrophils # 12.4 H (1.3-7.7) k/uL Lymphocytes # 0.3 L (1.0-4.8) k/uL PT 9.7 L (10.0-12.5) sec Sodium 136 L (137-145) mmol/L Potassium 5.3 H (3.5-5.1) mmol/L BUN 21 H (9-20) mg/dL Creatinine 0.46 L (0.66-1.25) mg/dL Total Bilirubin 1.5 H (0.2-1.3) mg/dL
--- NOTE | 2024-01-09 21:53 | CONS ---
CONSULTATION HISTORY OF PRESENT ILLNESS: Mark is a 58-year-old gentleman with history of esophageal cancer, for which he is undergoing chemo and radiation therapy, came into hospital complaining of chest pain. His chest discomfort is pleuritic, worsens with deep breathing and started suddenly. He also states that his chest pain gets better when he sits up. He underwent a CT scan of the chest that was inconclusive and subsequently had a V/Q scan that was low probability for pulmonary embolism. His EKG does not reveal acute ischemic changes. He had 3 sets of troponins that are negative for ischemia. The patient's chest pain could be pleuritic or could be related to recent radiation therapy or it could be due to pericarditis. I am going to give him Motrin to see if this will help his symptoms. Obtain a 2D echo to rule out pericardial effusion and decide on further course of action based on how his symptoms evolve. PAST MEDICAL HISTORY: Significant for esophageal cancer and hypertension. MEDICATIONS: Include; 1. Klonopin. 2. Zofran. 3. Nystatin. 4. Lopressor. ALLERGIES: To niacin. FAMILY HISTORY: Negative for premature coronary artery disease. SOCIAL HISTORY: Negative for current smoking, ETOH abuse, or drug abuse. REVIEW OF SYSTEMS: review of systems has been performed. Pertinents are as documented. PHYSICAL EXAMINATION: GENERAL: Comfortable at rest. VITAL SIGNS: Stable. NECK: There is no jugular venous distention. Carotid upstroke is normal. There is no bruit. CHEST: Reveals good air entry bilaterally. HEART: Reveals first and second heart sounds. No gallop. No murmur. ABDOMEN: Soft, nontender. EXTREMITIES: Did not reveal any edema. Peripheral pulses are felt. ASSESSMENT AND PLAN: 1. Precordial chest pain. 2. Hypertension. 3. History of esophageal cancer. The patient's chest pain is nonischemic in origin from both the description of EKG findings and cardiac enzymes. I will see if Motrin will help improve his symptoms. I will obtain a 2D echo. Hopefully, home tomorrow. MMODL / IJN: [id number] /
[2024-01-10 10:33] LABS: HCT 34.3 % (39.6-50.0); HGB 11.2 g/dL (13.0-17.0); MCHC 32.7 g/dL (32.0-37.0); Mean Platelet Volume 12.1 FL (9.5-12.2); NRBC Per 100 WBC 0 X 10*3/uL (0.00-0.01); Platelet Count 166 X 10*3/uL (140-440); WBC 6.16 X 10*3/uL (4.50-10.00)
[2024-01-10 10:39] LABS: Chol/HDL Ratio 4.46 Ratio; LDL Cholesterol,Calculated 113.6 mg/dL (0.0-131.0)
[2024-01-10 10:49] LABS: ALT 9 U/L (10-49); AST 17 U/L (14-35); Albumin 3.2 g/dL (3.8-4.9); Albumin/Globulin Ratio 1.45 Ratio (1.60-3.17); Alkaline Phosphatase 68 U/L (41-126); Blood Urea Nitrogen 17.3 mg/dL (9.0-27.0); Calcium 8.5 mg/dL (8.7-10.3); Carbon Dioxide 26.1 mmol/L (21.6-31.8); Chloride 102 mmol/L (96-109); Globulin 2.2 g/dL (1.6-3.3); Glucose 133 mg/dL (70-110); Potassium 4.6 mmol/L (3.5-5.5); Sodium 140 mmol/L (135-145); Total Bilirubin 0.3 mg/dL (0.3-1.2); Total Protein 5.4 g/dL (6.2-8.2)
--- NOTE | 2024-01-10 14:57 | P.PN ---
Subjective Progress Note Date: 01/10/24 History of present illness: This is a 58-year-old male with past medical history of esophageal cancer for which she is undergoing chemotherapy and radiation therapy. Patient presented to the hospital with chest pain that was pleuritic, worsens with deep breathing, and started suddenly. His chest pain gets better when he sits up. He underwent a CAT scan of the chest that was inconclusive and subsequently had a VQ scan that was low probability for pulmonary embolism. EKG revealed no acute ischemic changes. Troponins were negative x 3. Chest pain thought to be pleuritic related to recent radiation therapy and could be pericarditis. Patient was started on Motrin and echocardiogram to be obtained. Subsequently, patient was seen by oncology and Formoso was added for pain and continued on IV Dilaudid. Motrin has been discontinued due to patient's risk for bleeding. Patient states that he is feeling much better today. He states the chest pain is there when he takes deep breath. Echocardiogram is pending. Physical examination: Gen: This is a 58-year-old male in no acute distress VS: reviewed HEENT: Head is atraumatic, normocephalic. Pupils equal, round. Sclerae is anicteric. LUNGS: Clear to auscultation. No wheezes or rhonchi. No intercostal retractions. HEART: Regular rate and rhythm. No murmur. EXTREMITIES: No pedal edema. No calf tenderness. NEUROLOGICAL: Patient is awake, alert and oriented x3. Assessment: Atypical chest pain, acute coronary syndrome ruled out Hypertension History of esophageal cancer Plan: Continue Motrin Obtain 2-D echocardiogram and Doppler study to assess cardiac structure and function If echocardiogram is unremarkable, patient is cleared for discharge home. Nurse practitioner note has been reviewed, I agree with documented findings and plan of care. Patient was seen and examined. Objective - Vital Signs Vital signs: Vital Signs Temp 98.1 F 01/10/24 07:00 Pulse 79 01/10/24 07:00 Resp 16 01/10/24 07:00 BP 124/75 01/10/24 07:00 Pulse Ox 97 01/10/24 07:00 FiO2 Intake & Output 01/09/24 01/10/24 01/10/24 18:59 06:59 18:59 Weight 109.8 kg - Labs CBC & Chem 7: 01/10/24 06:42 01/10/24 06:42 Labs: Abnormal Lab Results - Last 24 Hours (Table) 01/09/24 01/09/24 Range/Units 03:47 03:47 RBC 3.66 L (4.40-5.60) X 10*6/uL Hgb 11.3 L (13.0-17.0) g/dL Hct 35.1 L (39.6-50.0) % Immature Gran # 0.05 H (0.00-0.04) X 10*3/uL Neutrophils # 7.81 H (1.80-7.70) X 10*3/uL Lymphocytes # 0.51 L (0.90-5.00) X 10*3/uL Creatinine 0.5 L (0.6-1.5) mg/dL BUN/Creatinine Ratio 37.20 H (12.00-20.00) Ratio Calcium 8.5 L (8.7-10.3) mg/dL Total Protein 5.3 L (6.2-8.2) g/dL Albumin 3.2 L (3.8-4.9) g/dL Albumin/Globulin Ratio 1.52 L (1.60-3.17) Ratio
[2024-01-10 16:00] VITALS: BMI 37.9
--- NOTE | 2024-01-10 17:43 | P.PN ---
Subjective Progress Note Date: 01/10/24 Hospital Course: Patient is a very pleasant 58-year-old male with a past medical history of esophageal cancer, J-tube placement, kidney stones, hypertension, and anxiety. He presented to the emergency department with a chief complaint of chest pain. Patient reports he was relaxing yesterday evening watching TV in his recliner when he developed sudden onset pain to midsternal chest. Patient describes this pain as sharp and constant. He reports pain worsened upon taking a deep breath but did not go away between breaths. He recently underwent his first ch emotherapy treatment on 01/04/2024 for his esophageal cancer followed by his first round (5 days) of radiation treatments completed yesterday. He remains NPO with the exception of small amount of water he mixes with his crushed medications. All nutrition comes from tube feeds. Patient reports he has had severe reflux in the past but states this pain is different. He states pain almost takes his breath away but that it is hard to explain because he is not short of breath. He denies having any dizziness, lightheadedness, headache, fevers, chills, palpitations, cough or congestion, or experiencing any numbness/tingling/weakness/swelling in his extremities. He reports pain initially waxed and waned and he thought it was may be just from his radiation treatments because he does not have any cardiac history, but when the pain persisted throughout the night he notified his sister to bring him to the hospital for evaluation. Patient underwent evaluation in the emergency department. Vital signs upon arrival show blood pressure 129/89, heart rate 89, respiratory rate 20, temp 98.1 F, and SpO2 of 99% on room air. EKG completed showing normal sinus rhythm at 88 bpm with no significant T wave or ST abnormalities showing no signs of acute ischemia upon personal review and interpretation. CTA chest was completed which reported suboptimal assessment for PE secondary to suboptimal contrast bolus and breathing motion, however did not reveal any large central or saddle emboli, also reported prominent dependent bilateral lower lobe opacification likely atelectasis with bronchial wall thickening and a slightly larger distal esophageal cancer with adjacent 2.8 cm retrocrural metastatic lymph node and a right superior mediastinal lymph node larger at 2.1 cm versus previous 1.2 cm concerning for metastasis, possible 6.7 cm suspicious mass of right lateral kidney, and mild circumferential wall thickening of distal esophagus along with a 6 mm stone in the left renal collecting system. Labs were completed and reviewed. CBC showing leukocytosis with WBC count of 13.5. Coagulation profile showing elevated PT of 9.7 otherwise normal findings. BMP revealing mild hyperkalemia with potassium of 5.3 but was a hemolyzed specimen and prerenal azotemia with BUN of 21. Liver profile showing elevated total bili of 1.5 otherwise normal findings. Troponin less than 0.012. And lipase of 179. ED physician placed for VQ scan and admitted patient under our services with consultation to cardiology and oncology. VQ scan showing no evidence of pulmonary embolus with a normal or very low probability. Troponins trended overnight all negative at less than 0.012 x 3 draws. Physical exam: Patient seen and fully evaluated at bedside this morning. He reports significant improvement of chest pain. He reports he occasionally continues to feel at rest and still remains present upon taking a deep breath. Vital signs reviewed and stable. General: Nontoxic, no distress and appears stated age. Derm: Skin warm and dry, normal coloration for ethnicity. Head: Atraumatic, normocephalic and symmetric. Eyes: EOMs intact, no lid lag, and anicteric sclera Mouth: no lip lesions, mucus membranes moist Cardiovascular: regular rate and rhythm with normal S1S2, no murmur, positive posterior tibial pulses bilaterally, and cap refill < 2 seconds. Lungs: Respirations even, regular, and unlabored on room air. Lungs CTA bilaterally, no rhonchi, no rales, no wheezing, and no accessory muscle usage. Abdominal: soft, nontender to palpation, no guarding, no appreciable organomegaly. Gastric J-tube in place left upper quadrant surrounding insertion site showing no signs of erythema or infection.. Ext: ROM intact. No gross muscle atrophy, no edema, no contractures Neuro: Speech clear, face symmetrical and CN II-XII grossly intact with no noted focal neuro deficits Psych: Alert and oriented to person, place, time, and situation. Appropriate and pleasant affect. Assessment and Plan of Care: Chest pain, acute coronary event ruled out -Chest pain worsens upon taking a deep breath likely pleurisy secondary to recently started radiation therapy -Cardiology consulted, appreciate recommendations -Telemetry monitoring -Troponins trended all negative at less than 0.012 x 3 draws. -Continue aspirin 81 mg daily -Lipid profile unremarkable with the exception of low HDL. -Echocardiogram Esophageal cancer and renal mass status post J-tube placement. Oncology consulted and appreciate recommendations.. Patient to continue tube feedings as managed by dietitian and follow-up outpatient with oncologist as scheduled for continuation of chemotherapy and radiation therapy. Oral Thrush: Continue nystatin 5000 units 4 times daily Hypertension. Continue daily medication regimen with metoprolol tartrate 100 mg twice daily and verapamil 40 mg twice daily. Anxiety. Continue daily medication regimen with clonazepam 0.25 mg twice daily as needed for anxiety. History of recent kidney stones. Status post cystoscopy with right ureteroscopy and bilateral stent insertion on 12/14/2023 followed by lithotripsy and stent exchange on 12/28/2023. Data reviewed: Morning labs reviewed. CBC showing stable nemia with hemoglobin of 11.2. BMP unremarkable. Blood glucose 133. Liver profile normal findings. Magnesium 2.0. Lipid profile unremarkable with the exception of low HDL of 37.90. Vital signs reviewed. Blood pressure 124/75, heart rate 79, respiratory rate 16, temp 98.1 F, and SpO2 of 97% on room air. CODE STATUS: Full code DVT prophylaxis: Lovenox Anticipated discharge date: Pending echocardiogram results and cardiology clearance Anticipated discharge place: Home Patient was seen independently by Nurse Practitioner. This document was prepared using [employer] dictation software. Please allow for errors in estimator jewelry while rare they do occur. Rodolfo Crenshaw NP rendered care for this patient independently, reviewed the findings and plan as documented in the note above. I did not physically speak with or examine the patient on this date. Objective - Vital Signs Vital signs: Vital Signs Temp 98.1 F 01/10/24 07:00 Pulse 79 01/10/24 07:00 Resp 16 01/10/24 07:00 BP 124/75 01/10/24 07:00 Pulse Ox 97 01/10/24 07:00 FiO2 Intake & Output 01/09/24 01/10/24 01/10/24 18:59 06:59 18:59 Weight 109.8 kg - Labs CBC & Chem 7: 01/10/24 06:42 01/10/24 06:42 Labs: Abnormal Lab Results - Last 24 Hours (Table) 01/09/24 01/09/24 Range/Units 03:47 03:47 RBC 3.66 L (4.40-5.60) X 10*6/uL Hgb 11.3 L (13.0-17.0) g/dL Hct 35.1 L (39.6-50.0) % Immature Gran # 0.05 H (0.00-0.04) X 10*3/uL Neutrophils # 7.81 H (1.80-7.70) X 10*3/uL Lymphocytes # 0.51 L (0.90-5.00) X 10*3/uL Creatinine 0.5 L (0.6-1.5) mg/dL BUN/Creatinine Ratio 37.20 H (12.00-20.00) Ratio Calcium 8.5 L (8.7-10.3) mg/dL Total Protein 5.3 L (6.2-8.2) g/dL Albumin 3.2 L (3.8-4.9) g/dL Albumin/Globulin Ratio 1.52 L (1.60-3.17) Ratio
--- NOTE | 2024-01-10 20:01 | CA ---
Transthoracic Echo Report Name: Mark Peralta Age: 58 Gender: M : 1965 Exam Date: 01/10/2024 14:18 Exam Location: [facility] Ht (in): 67 Wt (lb): 237 Ordering Physician: Rodolfo Crenshaw Attending/Referring Phys: Greenhouse Manager Marilyn Anders RDCS Procedure CPT: Indications: Evaluate function and structure of heart Cardiac Hx: Technical Quality: Fair Contrast 1: Total Dose (mL): Contrast 2: Total Dose (mL): MEASUREMENTS (Male / Female) Normal Values 2D ECHO LV Diastolic Diameter PLAX 4.1 cm 4.2 - 5.9 / 3.9 - 5.3 cm LV Systolic Diameter PLAX 2.2 cm IVS Diastolic Thickness 1.6 cm 0.6 - 1.0 / 0.6 - 0.9 cm LVPW Diastolic Thickness 1.5 cm 0.6 - 1.0 / 0.6 - 0.9 cm LV Relative Wall Thickness 0.8 RV Internal Dim ED PLAX 4.2 cm LA Volume 77.8 cm??? 18 - 58 / 22 - 52 cm??? LA Volume Index 33.8 cm???/m??? 16 - 28 cm???/m??? M-MODE Aortic Root Diameter MM 3.5 cm LA Systolic Diameter MM 3.9 cm LA Ao Ratio MM 1.1 DOPPLER AV Peak Velocity 120.9 cm/s AV Peak Gradient 5.8 mmHg AV Mean Velocity 93.7 cm/s AV Mean Gradient 3.8 mmHg AV Velocity Time Integral 22.8 cm LVOT Peak Velocity 125.3 cm/s LVOT Peak Gradient 6.3 mmHg LVOT Velocity Time Integral 26.4 cm MV Area PHT 3.2 cm??? Mitral E Point Velocity 67.7 cm/s Mitral A Point Velocity 62.1 cm/s Mitral E to A Ratio 1.1 MV Deceleration Time 236.8 ms MV E' Velocity 7.0 cm/s Mitral E to MV E' Ratio 9.7 TR Peak Velocity 244.3 cm/s TR Peak Gradient 23.9 mmHg Right Ventricular Systolic Press 28.9 mmHg FINDINGS Left Ventricle Moderately increased left ventricular wall thickness. Left ventricular cavity size normal. Normal left ventricular systolic function with no obvious regional wall motion abnormalities. Left ventricular ejection fraction is estimated at 55-60 %. Grade 1 diastolic dysfunction. Right Ventricle Moderate right ventricular dilatation. Right ventricular systolic pressure within normal limits. Right Atrium Normal right atrial size. Left Atrium Mildly increased left atrial volume. Mildly increased left atrial area. Mitral Valve Structurally normal mitral valve. Mild mitral regurgitation. Aortic Valve Trileaflet aortic valve. No aortic valve stenosis or regurgitation. Tricuspid Valve Structurally normal tricuspid valve. Mild tricuspid regurgitation. Pulmonic Valve Structurally normal pulmonic valve. Trace pulmonic regurgitation. Pericardium No pericardial effusion. Aorta Normal size aortic root and proximal ascending aorta. CONCLUSIONS Technically difficult study for interpretation. Poorly visualized endocardium and intracardiac valves Normal LV systolic function Dilated right ventricle. Normal pulmonary artery systolic pressure No evidence of pericardial effusion Normal aortic root and proximal ascending aorta Previewed by: Dr. Amador Whiteside MD (Electronically Signed) Final Date: 10 January 2024 20:00
[2024-01-11 03:43] VITALS: RESP 16
[2024-01-11 07:59] VITALS: BP 123/79; PULSE 76; TEMP 98
--- NOTE | 2024-01-11 10:27 | P.DS ---
Providers Date of admission: 01/08/24 14:32 Expected date of discharge: 01/11/24 Attending physician: Vianney Casper MD Consults: 01/08/24 14:32 Consult Physician Routine Consulting Provider: Ko Husain Consult Reason/Comments: oncological care Do you want consulting provider notified?: Yes 01/08/24 16:21 Consult Physician Routine Consulting Provider: Graeme King Consult Reason/Comments: CP Do you want consulting provider notified?: Yes Primary care physician: [facility] Course: Discharge Diagnosis: Chest pain, acute coronary event ruled out. Esophageal cancer and renal mass status post J-tube placement. Oncology consulted and appreciate recommendations.. Patient to continue tube feedings as managed by dietitian and follow-up outpatient with oncologist as scheduled for continuation of chemotherapy and radiation therapy. Oral Thrush: Continue nystatin 5000 units 4 times daily Hypertension. Continue daily medication regimen with metoprolol tartrate 100 mg twice daily and verapamil 40 mg twice daily. Anxiety. Continue daily medication regimen with clonazepam 0.25 mg twice daily as needed for anxiety. History of recent kidney stones. Status post cystoscopy with right ureteroscopy and bilateral stent insertion on 12/14/2023 followed by lithotripsy and stent exchange on 12/28/2023. Hospital Course: Patient is a very pleasant 58-year-old male with a past medical history of esophageal cancer, J-tube placement, kidney stones, hypertension, and anxiety. He presented to the emergency department with a chief complaint of chest pain. Patient reports he was relaxing yesterday evening watching TV in his recliner when he developed sudden onset pain to midsternal chest. Patient describes this pain as sharp and constant. He reports pain worsened upon taking a deep breath but did not go away between breaths. He recently underwent his first chemotherapy treatment on 01/04/2024 for his esophageal cancer followed by his first round (5 days) of radiation treatments completed yesterday. He remains NPO with the exception of small amount of water he mixes with his crushed medications. All nutrition comes from tube feeds. Patient reports he has had severe reflux in the past but states this pain is different. He states pain almost takes his breath away but that it is hard to explain because he is not short of breath. He denies having any dizziness, lightheadedness, headache, fevers, chills, palpitations, cough or congestion, or experiencing any numbness/tingling/weakness/swelling in his extremities. He reports pain initially waxed and waned and he thought it was may be just from his radiation treatments because he does not have any cardiac history, but when the pain persisted throughout the night he notified his sister to bring him to the hospital for evaluation. Patient underwent evaluation in the emergency department. Vital signs upon arrival show blood pressure 129/89, heart rate 89, respiratory rate 20, temp 98.1 F, and SpO2 of 99% on room air. EKG completed showing normal sinus rhythm at 88 bpm with no significant T wave or ST abnormalities showing no signs of acute ischemia upon personal review and interpretation. CTA chest was completed which reported suboptimal assessment for PE secondary to suboptimal contrast bolus and breathing motion, however did not reveal any large central or saddle emboli, also reported prominent dependent bilateral lower lobe opacification likely atelectasis with bronchial wall thickening and a slightly larger distal esophageal cancer with adjacent 2.8 cm retrocrural metastatic lymph node and a right superior mediastinal lymph node larger at 2.1 cm versus previous 1.2 cm concerning for metastasis, possible 6.7 cm suspicious mass of right lateral kidney, and mild circumferential wall thickening of distal esophagus along with a 6 mm stone in the left renal collect ing system. Labs were completed and reviewed. CBC showing leukocytosis with WBC count of 13.5. Coagulation profile showing elevated PT of 9.7 otherwise normal findings. BMP revealing mild hyperkalemia with potassium of 5.3 but was a hemolyzed specimen and prerenal azotemia with BUN of 21. Liver profile showing elevated total bili of 1.5 otherwise normal findings. Troponin less than 0.012. And lipase of 179. ED physician placed for VQ scan and admitted patient under our services with consultation to cardiology and oncology. VQ scan showing no evidence of pulmonary embolus with a normal or very low probability. Troponins trended overnight all negative at less than 0.012 x 3 draws. Echocardiogram showing preserved EF of 55 to 60% with with no significant valvular or structural abnormalities and no signs of pericardial effusion. Patient cleared from cardiac perspective for discharge and cleared from oncology recommending to resume scheduled chemotherapy and radiation therapy. Patient free from any complaints at this time and is medically stable for discharge at this time. Patient to follow-up outpatient with PCP in 1 to 2 days, cardiology in 1 week, and with hematology/oncology as scheduled. Physical exam: Vital signs reviewed and stable. General: Nontoxic, no distress and appears stated age. Derm: Skin warm and dry, normal coloration for ethnicity. Head: Atraumatic, normocephalic and symmetric. Eyes: EOMs intact, no lid lag, and anicteric sclera Mouth: no lip lesions, mucus membranes moist Cardiovascular: regular rate and rhythm with normal S1S2, no murmur, positive posterior tibial pulses bilaterally, and cap refill < 2 seconds. Lungs: Respirations even, regular, and unlabored on room air. Lungs CTA bilater ally, no rhonchi, no rales, no wheezing, and no accessory muscle usage. Abdominal: soft, nontender to palpation, no guarding, no appreciable organomegaly. Gastric J-tube in place left upper quadrant surrounding insertion site showing no signs of erythema or infection.. Ext: ROM intact. No gross muscle atrophy, no edema, no contractures Neuro: Speech clear, face symmetrical and CN II-XII grossly intact with no noted focal neuro deficits Psych: Alert and oriented to person, place, time, and situation. Appropriate and pleasant affect. A total of 31 minutes of time were spent preparing this complex discharge summary. Pt was discharged on 01/11/2024 at 9:03 AM. Patient was seen independently by Nurse Practitioner. This document was prepared using [employer] dictation software. Please allow for errors in police booking officer while rare they do occur. Rodolfo Crenshaw NP rendered care for this patient independently, reviewed the f indings and plan as documented in the note above. I did not physically speak with or examine the patient on this date. Patient Condition at Discharge: Stable Plan - Discharge Summary Discharge Rx Participant: No New Discharge Prescriptions: New Nystatin 100,000 Unit/ml Susp [Mycostatin Oral Susp] 500,000 unit PO QID 7 Days #140 ml Sucralfate [Carafate] 1 gm PO BID 30 Days #600 ml Continue Verapamil [Isoptin] 40 mg PO BID clonazePAM [Klonopin ODT] 0.25 mg PO BID PRN PRN Reason: Anxiety Ondansetron Odt [Zofran ODT] 4 - 8 mg PO Q4H PRN PRN Reason: Nausea And Vomiting Metoprolol Tartrate [Lopressor] 100 mg PO BID Discharge Medication List Verapamil [Isoptin] 40 mg PO BID 01/04/24 [History] Metoprolol Tartrate [Lopressor] 100 mg PO BID 01/08/24 [History] Ondansetron Odt [Zofran ODT] 4 - 8 mg PO Q4H PRN 01/08/24 [History] clonazePAM [Klonopin ODT] 0.25 mg PO BID PRN 01/08/24 [History] Nystatin 100,000 Unit/ml Susp [Mycostatin Oral Susp] 500,000 unit PO QID 7 Days #140 ml 01/11/24 [Rx] Sucralfate [Carafate] 1 gm PO BID 30 Days #600 ml 01/11/24 [Rx] Follow up Appointment(s)/Referral(s): Caridad Hilario MD [STAFF PHYSICIAN] - 1 Week Koffi Escamilla DO [Primary Care Provider] - 1-2 days Patient Instructions/Handouts: Pleurisy (DC) Activity/Diet/Wound Care/Special Instructions: Activity: As tolerated. Take breaks as needed. Diet: Heart healthy and carb consistent diet. Avoid salts, or foods with hidden salts such as canned or boxed foods and frozen dinners. Extra salt makes your heart work harder and traps the fluid in your body for longer. Special Instructions: Take all of your medications as directed and remember to keep all of your doctor's appointments and follow-up as needed. Thank you for allowing us to participate in your care, it was truly a pleasure having you for our patient!!! Discharge Disposition: HOME SELF-CARE
--- NOTE | 2024-01-11 14:01 | P.PN ---
Subjective Progress Note Date: 01/11/24 History of present illness: This is a 58-year-old male with past medical history of esophageal cancer for which she is undergoing chemotherapy and radiation therapy. Patient presented to the hospital with chest pain that was pleuritic, worsens with deep breathing, and started suddenly. His chest pain gets better when he sits up. He underwent a CAT scan of the chest that was inconclusive and subsequently had a VQ scan that was low probability for pulmonary embolism. EKG revealed no acute ischemic changes. Troponins were negative x 3. Chest pain thought to be pleuritic related to recent radiation therapy and could be pericarditis. Patient was started on Motrin and echocardiogram to be obtained. Subsequently, patient was seen by oncology and [place] was added for pain and continued on IV Dilaudid. Motrin has been discontinued due to patient's risk for bleeding. Patient states that he is feeling much better today. He states the chest pain is there when he takes deep breath. Echocardiogram is pending. 01/10 Echocardiogram reveals EF of 55 to 60%. Dilated right ventricle. Normal pul monary artery systolic pressure. No evidence of pericardial effusion. Normal aortic root and proximal ascending aorta. Results of the echocardiogram were reviewed with the patient. Blood pressure 123/79, heart rate in the 60s to 80, pulse ox 96% on room air. Patient is scheduled for discharge home today. Physical examination: Gen: This is a 58-year-old male in no acute distress VS: reviewed HEENT: Head is atraumatic, normocephalic. Pupils equal, round. Sclerae is anicteric. LUNGS: Clear to auscultation. No wheezes or rhonchi. No intercostal retractions. HEART: Regular rate and rhythm. No murmur. EXTREMITIES: No pedal edema. No calf tenderness. NEUROLOGICAL: Patient is awake, alert and oriented x3. Assessment: Atypical chest pain, acute coronary syndrome ruled out Hypertension History of esophageal cancer Plan: Patient is cleared for discharge home from cardiology perspective. Nurse practitioner note has been reviewed, I agree with documented findings and plan of care. Patient was seen and examined. Objective - Vital Signs Vital signs: Vital Signs Temp 98 F 01/11/24 07:00 Pulse 76 01/11/24 07:00 Resp 16 01/11/24 07:00 BP 123/79 01/11/24 07:00 Pulse Ox 96 01/11/24 07:00 FiO2 Intake & Output 01/10/24 01/11/24 01/11/24 18:59 06:59 18:59 Weight 109.8 kg - Labs CBC & Chem 7: 01/10/24 06:42 01/10/24 06:42 Labs: Abnormal Lab Results - Last 24 Hours (Table) 01/10/24 01/10/24 Range/Units 06:42 06:42 RBC 3.50 L (4.40-5.60) X 10*6/uL Hgb 11.2 L (13.0-17.0) g/dL Hct 34.3 L (39.6-50.0) % MCV 98.0 H (80.0-97.0) FL Creatinine 0.5 L (0.6-1.5) mg/dL BUN/Creatinine Ratio 34.60 H (12.00-20.00) Ratio Glucose 133 H (70-110) mg/dL Calcium 8.5 L (8.7-10.3) mg/dL ALT 9 L (10-49) U/L Total Protein 5.4 L (6.2-8.2) g/dL Albumin 3.2 L (3.8-4.9) g/dL Albumin/Globulin Ratio 1.45 L (1.60-3.17) Ratio HDL Cholesterol 37.90 L (40.00-60.00) mg/dL
== END 2024-01-11 12:45 | disposition home or self-care (01) ==
LOC: EC 10:44 → 6NMEDSUR 14:32
PROVIDERS: ADMIT Family Medicine; ATTEND Family Medicine
DX: R07.2 Precordial pain (principal); B37.0 Candidal stomatitis; E78.5 Hyperlipidemia, unspecified; I10 Essential (primary) hypertension; F41.9 Anxiety disorder, unspecified; D64.9 Anemia, unspecified; Z85.01 Personal history of malignant neoplasm of esophagus; Z87.442 Personal history of urinary calculi; Z92.3 Personal history of irradiation; Z79.899 Other long term (current) drug therapy
CPT/HCPCS: 96376 ×5; 96361 ×3; 96372 ×3; 96375 ×2; 96374; 99285; 36415; 93005; 93306; 80061; 80053 ×3; 83690; 83735 ×2; 84484; 85025 ×2; 85027; 85610; 85730; 71275; 78582; G0378 ×4; A9540; A9567; J2270; J1650 ×3; J3490; J1170 ×4; C9113 ×3; Q9967

== ENCOUNTER 2024-03-10 10:15 | Emergency (ER) | payer OTHER ==
[2024-03-10 10:24] VITALS: RESP 18; TEMP 98
--- NOTE | 2024-03-10 11:43 | ED ---
General Adult HPI - General Chief complaint: Skin/Abscess/Foreign Body Stated complaint: Feeding Tube Issue Time Seen by Provider: 03/10/24 10:25 Source: patient Mode of arrival: ambulatory Limitations: no limitations - History of Present Illness Initial comments: 58-year-old male who presents to the emergency department with pain around his feeding tube site. States he has been more active recently. He is doing a lot of lifting and bending. He noticed that he had a blood blister around his feeding tube yesterday which eventually popped and left him with some drainage. He has mild redness to the site. No pustular drainage. Denies any additional trauma to the tube. No abdominal pain. No fevers. No other alleviating, precipitating modifying factors - Related Data Home Medications Medication Instructions Recorded Confirmed Verapamil [Isoptin] 40 mg PO TID 01/04/24 03/10/24 Metoprolol Tartrate [Lopressor] 100 mg PO BID 01/08/24 03/10/24 Ondansetron Odt [Zofran ODT] 4 - 8 mg PO Q4H PRN 01/08/24 03/10/24 clonazePAM [KlonoPIN ODT] 0.25 mg PO BID PRN 01/08/24 03/10/24 HYDROcodone/APAP 10-325MG [Greer 1 tab PO Q6H PRN 03/10/24 03/10/24 10-325] Lidocaine Viscous 2% [Xylocaine 15 ml MUCOUS MEM QID PRN 03/10/24 03/10/24 Viscous] Nystatin 100,000 Unit/ml Susp 500,000 unit PO QID PRN 03/10/24 03/10/24 [Mycostatin Oral Susp] Previous Rx's Medication Instructions Recorded cephALEXin [Keflex Oral Susp] 10 ml PO QID 5 Days #200 ml 03/10/24 Allergies Allergy/AdvReac Type Severity Reaction Status Date / Time niacin Allergy Rash/Hives Verified 03/10/24 11:17 Review of Systems ROS Statement: Those systems with pertinent positive or pertinent negative responses have been documented in the HPI. ROS Other: All systems not noted in ROS Statement are negative. Past Medical History Past Medical History: Cancer, Hyperlipidemia, Hypertension Additional Past Medical History / Comment(s): Esophageal cancer 11/2023, j-tube 11/2023. Hx of kidney stones. 1st radiation tx 01-03-24. First chemo tx 11-05-23. History of Any Multi-Drug Resistant Organisms: None Reported Past Surgical History: No Surgical Hx Reported Additional Past Surgical History / Comment(s): EGD x2. J-tube 11/2023. Lithotripsy December 2023. Had stents ureteral removed . Past Anesthesia/Blood Transfusion Reactions: No Reported Reaction Additional Past Anesthesia/Blood Transfusion Reaction / Comment(s): No hx of blood transfusion. Past Psychological History: Anxiety Smoking Status: Never smoker Past Alcohol Use History: None Reported Past Drug Use History: None Reported - Past Family History Mother Family Medical History: Cancer Father Family Medical History: Cancer Sister(s) Family Medical History: Cancer Additional Family Medical History / Comment(s): breast General Exam Limitations: no limitations General appearance: alert, in no apparent distress Head exam: Present: atraumatic, normocephalic, normal inspection Eye exam: Present: normal appearance, PERRL, EOMI. Absent: scleral icterus, conjunctival injection, periorbital swelling ENT exam: Present: normal exam, mucous membranes moist Neck exam: Present: normal inspection. Absent: tenderness, meningismus, ly mphadenopathy Respiratory exam: Present: normal lung sounds bilaterally. Absent: respiratory distress, wheezes, rales, rhonchi, stridor Cardiovascular Exam: Present: regular rate, normal rhythm, normal heart sounds. Absent: systolic murmur, diastolic murmur, rubs, gallop, clicks GI/Abdominal exam: Present: soft, normal bowel sounds, other (Patient has feeding tube in left periumbilical region. There is some ulceration noted to the 3 o'clock position. There is some mild oozing of blood. No pus). Absent: distended, tenderness, guarding, rebound, rigid Extremities exam: Present: normal inspection, full ROM, normal capillary refill. Absent: tenderness, pedal edema, joint swelling, calf tenderness Back exam: Present: normal inspection Neurological exam: Present: alert, oriented X3, CN II-XII intact Psychiatric exam: Present: normal affect, normal mood Skin exam: Present: warm, dry, intact, normal color. Absent: rash Course Vital Signs 03/10/24 03/10/24 10:21 12:47 Temperature 98.0 F Pulse Rate 78 68 Respiratory 18 18 Rate Blood Pressure 144/85 115/79 O2 Sat by Pulse 99 98 Oximetry Medical Decision Making - Medical Decision Making Was pt. sent in by a medical professional or institution (ARI Jenkins, HEAD OF ACADEMIC TECHNOLOGY, urgent care, hospital, or snf...) When possible be specific @ -No Did you speak to anyone other than the patient for history (EMS, parent, family, police, friend...)? What history was obtained from this source @ -No Did you review nursing and triage notes (agree or disagree)? Why? @ -I reviewed and agree with nursing and triage notes Were old charts reviewed (outside hosp., previous admission, EMS record, old EKG, old radiological studies, urgent care reports/EKG's, snf records)? Report findings @ -No old charts were reviewed Differential Diagnosis (chest pain, altered mental status, abdominal pain women, abdominal pain men, vaginal bleeding, weakness, fever, dyspnea, syncope, headache, dizziness, GI bleed, back pain, seizure, CVA, palpatations, mental health, musculoskeletal)? @ -Feeding tube dislodgment, cellulitis, abscess, feeding tube trauma EKG interpreted by me (3pts min.). @ -Not done X-rays interpreted by me (1pt min.). @ -None done CT interpreted by me (1pt min.). @ -None done U/S interpreted by me (1pt. min.). @ -None done What testing was considered but not performed or refused? (CT, X-rays, U/S, labs)? Why? @ -None What meds were considered but not given or refused? Why? @ -None Did you discuss the management of the patient with other professionals (professionals i.e. ARI Jenkins, HEAD OF AC[employer]CHNOLOGY, lab, RT, psych nurse, manager social work, tree shear operator, teacher, chief privacy officer, case hardener)? Give summary @ -No Was smoking cessation discussed for >3mins.? @ -No Was critical care preformed (if so, how long)? @ -No Were there social determinants of health that impacted care today? How? (Homelessness, low income, unemployed, alcoholism, drug addiction, transportation, low edu. Level, literacy, decrease access to med. care, halfway, rehab)? @ -No Was there de-escalation of care discussed even if they declined (Discuss DNR or withdrawal of care, Hospice)? DNR status @ -No What co-morbidities impacted this encounter? (DM, HTN, Smoking, COPD, CAD, Cancer, CVA, ARF, Chemo, Hep., AIDS, mental health diagnosis, sleep apnea, morbid obesity)? @ -Esophageal cancer Was patient admitted / discharged? Hospital course, mention meds given and route, prescriptions, significant lab abnormalities, going to OR and other pertinent info. @ -Upon arrival patient seen and evaluated in room 21. Thorough history and physical exam was performed. It does appear that the patient sustained some trauma to the area. We will use a barrier cream. Instructed to keep tension off the area and pull the tube to the right side. Patient will follow-up with the surgeon Dr. Pedraza. He will be placed on oral antibiotics due to the open nature of the skin. He is to return for any new or worsening symptoms. Patient agreeable plan was discharged in stable condition Undiagnosed new problem with uncertain prognosis? @ -No Drug Therapy requiring intensive monitoring for toxicity (Heparin, Nitro, Insulin, Cardizem)? @ -No Were any procedures done? @ -No Diagnosis/symptom? @ -Acute ulceration at base of feeding tube, history of esophageal cancer Acute, or Chronic, or Acute on Chronic? @ -Acute Uncomplicated (without systemic symptoms) or Complicated (systemic symptoms)? @ -Uncomplicated Side effects of treatment? @ -No Exacerbation, Progression, or Severe Exacerbation? @ -No Poses a threat to life or bodily function? How? (Chest pain, [place], [place], pneumonia, PE, COPD, DKA, ARF, appy, cholecystitis, CVA, Diverticulitis, Homicidal, Suicidal, threat to staff... and all critical care pts) @ -No Disposition Clinical Impression: Jejunostomy tube site pain Disposition: HOME SELF-CARE Condition: Stable Instructions (If sedation given, give patient instructions): How to Use and Care for Your PEG Tube (ED) Additional Instructions: Jejunostomy tube Place a barrier cream to the area twice a day. Try and keep the tube from resti ng on the left side until healed. Minimize bending and lifting. Take the antibiotics to prevent infection. Follow up with Dr. Isabel Prescriptions: cephALEXin [Keflex Oral Susp] 10 ml PO QID 5 Days #200 ml Is patient prescribed a controlled substance at d/c from ED?: No Referrals: Koffi Escamilla DO [Primary Care Provider] - 1-2 days Enoch Isabel MD [Medical Doctor] - 1-2 days Time of Disposition: 11:43
[2024-03-10] MEDS: ZINC OXIDE PASTE (Z-GUARD) 1 APPLIC TOPICAL PRN (12:25)
[2024-03-10 12:48] VITALS: BP 115/79; PULSE 68
== END 2024-03-10 12:47 | disposition home or self-care (01) ==
LOC: EC 10:15
DX: T85.848A Pain due to other internal prosthetic devices, implants and grafts, initial encounter (principal); Z88.8 Allergy status to other drugs, medicaments and biological substances
CPT/HCPCS: 99283

== ENCOUNTER → 2024-03-17 | Outpatient (CLI) | payer OTHER ==
[2024-03-17 07:54] LABS: African American GFR (CKD) >90 (>60 ml/min/1.73 sqM); Blood Urea Nitrogen 13 mg/dL (9-20); Non-African American GFR(CKD) >90 (>60 ml/min/1.73 sqM)
--- NOTE | 2024-03-17 17:26 | CT ---
EXAMINATION TYPE: CT ChestAbdPelvis w con CT DLP: 2140.10 mGycm, Automated exposure control for dose reduction was used. DATE OF EXAM: 03/17/2024 8:46 AM COMPARISON: CTA chest 01/08/2024, PET CT 12/23/2023, CT abdomen and pelvis 12/13/2023. CLINICAL INDICATION:Male, 58 years old with history of C15.9 MALIGNANT NEOPLASM OF ESOPHAGUS, UNSPECI FIED; PHH, Malignant neoplasm of esophagus Technique: Multiple axial images of the chest, abdomen, and pelvis were obtained following the intrav enous administration of 100 mL Isovue-300. Oral contrast was administered. Two-dimensional coronal an d sagittal reconstructions were obtained. Findings: CHEST: LUNGS/ PLEURA: No pleural effusion, pneumothorax, or focal consolidation. Right anterior upper and mi ddle lobes subsegmental atelectasis. No suspicious pulmonary nodules or masses AIRWAY: Patent and unremarkable. HEART: Size within normal limits. No pericardial effusion. MEDIASTINUM: Decreased size of now a 0.8 cm short axis right paratracheal lymph node (series 3, image 7). Previously FDG avid. No new lymphadenopathy. VASCULATURE: Aortic root aneurysmal dilatation measuring up to 4.1 cm again. Left PICC line identifi ed with tip terminating at these superior GE junction. MUSCULOSKELETAL: No acute osseous abnormalities. No aggressive osseous lesion. Mild multilevel degene rative disc disease. SOFT TISSUES/LYMPH NODES: Bilateral gynecomastia. LOWER NECK: No significant findings. ABDOMEN: ABDOMEN LIVER: Stable left hepatic lobe cyst measuring up to 1.3 cm. GALLBLADDER AND BILE DUCTS: Unremarkable. PANCREAS: Unremarkable. SPLEEN: Unremarkable. ADRENAL GLANDS: Unremarkable. KIDNEYS AND URETERS: No evidence of hydronephrosis. There are 3 right renal nonobstructive calculi id entified with largest measuring up to 4 mm. The kidneys enhance symmetrically. Left superior pole 3.8 cm cyst. Additional left mid kidney 1.2 cm cyst. Right inferior pole 2.4 cm cyst. An additional post erior right mid kidney 1.8 cm cyst. There is an exophytic right lateral mid kidney 6.5 cm cyst redemo nstrated with Hounsfield unit of 34. Punctate echogenic focus identified within the lesion. Contrast imaging within both collecting systems. PELVIS BLADDER: Unremarkable REPRODUCTIVE: Prostate is enlarged in size measuring 5.5 cm in transverse dimension. ABDOMEN & PELVIS STOMACH AND BOWEL: Diffuse circumferential wall thickening of the esophagus at the GE junction measur ing up to 1.2 cm. The visualized stomach appears unremarkable. Percutaneous jejunostomy tube is ident ified. Enteric contrast reaches the mid small bowel. The appendix is within normal limits. No evidenc e of bowel obstruction. PERITONEUM: No evidence of pneumoperitoneum or free fluid. VASCULATURE: No evidence of aortic aneurysm. MUSCULOSKELETAL: No acute osseous abnormalities. No aggressive osseous lesion. Mild multilevel degene rative disc disease. This is most pronounced at L5-S1. Grade 1 anterolisthesis of L5 on S1 with bilat eral pars defects. LYMPH NODES: Decreased size of right retrocrural lymph node from prior exam now measuring 1.1 cm shor t axis, previously measured 2.1 cm (series 3, image 49). Previously FDG avid. No new lymphadenopathy identified. SOFT TISSUE/ABDOMINAL WALL: Small fat filled umbilical hernia. IMPRESSION: 1. Redemonstration of abnormal circumferential wall thickening of the distal esophagus which was pre viously FDG avid and consistent with known malignancy. Decreased size of previously FDG avid right pa ratracheal and right retrocrural lymph nodes suggesting positive response to therapy. 2. Bilateral renal cysts with complex right mid kidney 6.4 cm lesion redemonstrated. This is again s uspicious for renal cell carcinoma. Further evaluation with MRI renal mass protocol is highly recomme nded.
== END | disposition home or self-care (01) ==
LOC: RADCTMAIN 06:57
PROVIDERS: ATTEND Thoracic Surgery (Cardiothoracic Vascular Surgery)
DX: C15.9 Malignant neoplasm of esophagus, unspecified (principal); N28.1 Cyst of kidney, acquired
CPT/HCPCS: 82565; 84520; 71260; 74177; 36415; Q9967

== ENCOUNTER → 2024-03-30 | Outpatient (CLI) | payer OTHER ==
--- NOTE | 2024-04-03 17:52 | PE ---
EXAMINATION TYPE: PET CT fusion skull to thigh DATE OF EXAM: 03/30/2024 COMPARISON: CT chest abdomen pelvis 03/17/2024 Prior PET/CT: 12/23/2023 HISTORY: Esophageal cancer TECHNIQUE: Following the intravenous administration of 11.38 mCi of F-18 FDG, whole body images are performed from the skull base to the midthigh. Images are reviewed on the computer in the coronal, a xial, and sagittal planes. Reconstructed rotating images are created on independent workstation and reviewed on the computer. A localization and attenuation correction CT is performed in conjunction with the PET scan. DLP: 919.61 mGycm SCAN: Subsequent Blood glucose: 90 mg/dL Average Mediastinum SUV: 2.2 Average Liver SUV: 2.96 FINDINGS: NECK: No abnormal uptake THORAX: There is a small focus of radiotracer within the midesophagus, image 105, SUV 8.37. There is some focal uptake at the gastroesophageal junction, image 115, SUV 6.72. Visualization of these areas is recommended. ABDOMEN: Jejunostomy PEG tube may be present with increased uptake adjacent to the opening, example i mage 162. There is a mass on the lateral right kidney. Cortex is mild uptake, most intense appears to be along the junction with the kidney, example image 154, SUV 6.9. Workup for neoplasm is recommended. PELVIS: No abnormal uptake OSSEOUS STRUCTURES: No abnormal uptake LOCALIZATION CT: Couple cortical renal cysts present. COMPARISON: Renal mass present previously. Uptake is slightly increased from the 5.86 previous. The uptake within the esophagus has significantly resolved over the interval. Correlate for prior jameel bonilla. The small foci remaining cannot exclude residual, direct visualization recommended IMPRESSION: 1. Couple of punctate distal gastroesophageal foci of radiotracer uptake. Residual esophageal cancer not excluded. Direct visualization recommended. 2. Slight subtle increase in SUV of the right renal mass.
== END | disposition home or self-care (01) ==
LOC: RADPETMAIN 08:42
PROVIDERS: ATTEND Thoracic Surgery (Cardiothoracic Vascular Surgery)
DX: C15.5 Malignant neoplasm of lower third of esophagus (principal); N28.89 Other specified disorders of kidney and ureter; R93.5 Abnormal findings on diagnostic imaging of other abdominal regions, including retroperitoneum
CPT/HCPCS: 78815; A9552

== ENCOUNTER → 2024-04-07 | Outpatient (CLI) | payer OTHER ==
--- NOTE | 2024-04-07 17:30 | CA ---
Exercise Stress Test Report Name: Mark Peralta Exam Date: 04/07/2024 10:44 Exam Location: [place] Stress Ht (in): 67 Wt (lb): 234 BSA: 2.16 Ordering Phys: Loy Santana MD Referring Phys: LOY SANTANA,, Technologist: Jaime Jones Age: 58 Gender: M : 1965 Procedure CPT: Indications: C15.9 MALIGNANT NEOPLASM OF ESOPHAGUS, UNSPECIFIED ICD-10 Codes: Patient History: Palpitations, hypertension, pre op clearance. Medications: Meds past 24 hrs: Pretest Chest Pain: STRESS TEST Chris Protocol Exercise Duration (min:sec): 03:[address] Depressions (mm): Angina Score: Steen Score: Resting HR (bpm): 126 Peak HR (bpm): 154 Resting BP (mmHg): 152 / 93 Peak BP (mmHg): 187 / 70 MPHR: 162 Target HR: 138 % MPHR: 95 METS: 5.4 Total Dose: Peak Dose: Atropine: Double Product: 29099 BP Response: Stress Termination: Reached target heart rate Stress Symptoms: Fatigue Stress Summary: ECG ANALYSIS Resting ECG: Normal sinus rhythm normal axis normal intervals Stress ECG: Patient exercised on Chris protocol for 3 minutes and 45 seconds achieving 85% of predicted maximum heart rate without chest pain or diagnostic ST segment depression CONCLUSIONS Poor exercise tolerance Negative stress test by EKG criteria Dr. Graeme King MD (Electronically Signed) Final Date: 07 April 2024 17:29
== END | disposition home or self-care (01) ==
LOC: RADNMMAIN 10:12
PROVIDERS: ATTEND Thoracic Surgery (Cardiothoracic Vascular Surgery)
DX: C15.9 Malignant neoplasm of esophagus, unspecified (principal); I10 Essential (primary) hypertension; Z01.810 Encounter for preprocedural cardiovascular examination
CPT/HCPCS: 93017

== ENCOUNTER → 2024-04-11 | Outpatient (CLI) | payer OTHER | LOC: CPPFTMAIN 14:13 | PROVIDERS: ATTEND Thoracic Surgery (Cardiothoracic Vascular Surgery) | DX: C15.9 Malignant neoplasm of esophagus, unspecified (principal); Z88.8 Allergy status to other drugs, medicaments and biological substances | CPT/HCPCS: 94060; 94726; 94729 ==

== ENCOUNTER 2024-04-23 17:26 | Emergency (ER) | payer OTHER ==
--- NOTE | 2024-05-30 13:59 | XR ---
[id number] MILEY WATT : 1965 EXAM: 2 radiographic views of the chest. DATE: 04/23/2024 21:34 INDICATION: RECENT CHEST TUBE REMOVAL COMPARISON: None, please note PACS downtime occurred during the radiologist interpretation of these i mages with limited priors/reports.. TECHNIQUE: Frontal and lateral views of the chest. FINDINGS: Lungs/Pleura: Blunting of the costophrenic angles bilaterally. No evidence of pneumothorax or focal c onsolidation. Pulmonary vascularity: Unremarkable. Heart/mediastinum: Cardiomediastinal silhouette is enlarged . Musculoskeletal: No acute osseous pathology. IMPRESSION: Small bilateral pleural effusion no evidence for pneumothorax. Haziness along the medial aspect of the right lung possibly related to atelectasis.. Correlate with p rior imaging. [facility], , 05/30/2024 1:57 PM
== END 2024-04-23 20:55 | disposition home or self-care (01) ==
LOC: EC 17:26
DX: J90 Pleural effusion, not elsewhere classified (principal)
CPT/HCPCS: 71046; 99284

== ENCOUNTER 2024-06-24 04:00 | Observation (INO) | payer OTHER ==
--- NOTE | 2024-06-24 04:07 | ED ---
Chest Pain HPI - General Chief Complaint: Chest Pain Stated Complaint: Chest Pain Time Seen by Provider: 06/24/24 04:03 Source: patient, RN notes reviewed, old records reviewed Mode of arrival: ambulatory Limitations: no limitations - History of Present Illness Initial Comments: This is a 59-year-old male to the ER for evaluation of anterior abdominal pain chest pain patient has history of similar symptoms. Patient has no nausea vomiting patient still uses a feeding tube. Patient does have recent complex medical history of cancer surgery esophageal cancer surgery. Complaining of chest pain today MD Complaint: chest pain -: hour(s) Onset: during rest, during exertion Pain Location: substernal, left chest Pain Radiation: none, jaw/teeth Severity: moderate Severity scale (1-10): 7 Quality: sharp Consistency: constant Improves With: nothing Worsens With: nothing Anginal Symptoms: dyspnea, sense of impending doom Other Symptoms: palpitations Treatments Prior to Arrival: none - Related Data Home Medications Medication Instructions Recorded Confirmed clonazePAM [KlonoPIN ODT] 0.25 mg PO BID PRN 01/08/24 06/24/24 Gabapentin 300 mg PO BID 06/24/24 06/24/24 Metoprolol Tartrate [Lopressor] 25 mg PO BID 06/24/24 06/24/24 Pantoprazole Sodium [Protonix] 40 mg PO DAILY 06/24/24 06/24/24 Previous Rx's Medication Instructions Recorded methylPREDNISolone Dose Pack 4 mg PO DIRECTED #1 packet 06/25/24 [Medrol Dose Pack] Allergies Allergy/AdvReac Type Severity Reaction Status Date / Time niacin Allergy Rash/Hives Verified 06/24/24 09:36 Review of Systems ROS Statement: Those systems with pertinent positive or pertinent negative responses have been documented in the HPI. ROS Other: All systems not noted in ROS Statement are negative. EKG Findings - EKG Comments: EKG Findings:: EKG is sinus 104 CA 172 QRS 101 QTc 406 - EKG Results: EKG: interpreted by [facility] Past Medical History Past Medical History: Cancer, Hyperlipidemia, Hypertension Additional Past Medical History / Comment(s): Esophageal cancer 11/2023, j-tube 11/2023. Hx of kidney stones. 1st radiation tx 01-03-24. First chemo tx 11-05-23. History of Any Multi-Drug Resistant Organisms: None Reported Past Surgical History: No Surgical Hx Reported Additional Past Surgical History / Comment(s): EGD x2. J-tube 11/2023. Lithotripsy December 2023. Had stents ureteral removed . Past Anesthesia/Blood Transfusion Reactions: No Reported Reaction Additional Past Anesthesia/Blood Transfusion Reaction / Comment(s): No hx of blood transfusion. Past Psychological History: Anxiety Smoking Status: Never smoker Past Alcohol Use History: None Reported Past Drug Use History: None Reported - Past Family History Mother Family Medical History: Cancer Father Family Medical History: Cancer Sister(s) Family Medical History: Cancer Additional Family Medical History / Comment(s): breast General Exam Limitations: no limitations General appearance: alert, in no apparent distress, anxious Head exam: Present: atraumatic, normocephalic, normal inspection Eye exam: Present: normal appearance, PERRL, EOMI. Absent: scleral icterus, conjunctival injection, periorbital swelling ENT exam: Present: normal exam, mucous membranes moist Neck exam: Present: normal inspection. Absent: tenderness, meningismus, lymphadenopathy Respiratory exam: Present: normal lung sounds bilaterally. Absent: respiratory distress, wheezes, rales, rhonchi, stridor Cardiovascular Exam: Present: normal rhythm, tachycardia, normal heart sounds. Absent: systolic murmur, diastolic murmur, rubs, gallop, clicks GI/Abdominal exam: Present: soft, normal bowel sounds. Absent: distended, tenderness, guarding, rebound, rigid Extremities exam: Present: normal inspection, full ROM, normal capillary refill. Absent: tenderness, pedal edema, joint swelling, calf tenderness Back exam: Present: normal inspection Neurological exam: Present: alert, oriented X3, CN II-XII intact Psychiatric exam: Present: normal affect, normal mood Skin exam: Present: warm, dry, intact, normal color. Absent: rash Course Vital Signs 06/24/24 06/24/24 06/24/24 04:02 04:25 04:30 Temperature 98 F Pulse Rate 113 H 101 H 101 H Respiratory 18 16 14 Rate Blood Pressure 151/80 149/89 149/89 O2 Sat by Pulse 97 97 96 Oximetry 06/24/24 06/24/24 06/24/24 05:30 06:30 08:04 Temperature Pulse Rate 98 97 96 Respiratory 15 20 17 Rate Blood Pressure 128/73 141/90 106/67 O2 Sat by Pulse 95 95 94 L Oximetry 06/24/24 12:03 Temperature 98 F Pulse Rate 77 Respiratory 16 Rate Blood Pressure 115/72 O2 Sat by Pulse 96 Oximetry - Reevaluation(s) Reevaluation #1: 06/24/24 05:04 Medical records reviewed Reevaluation #2: 06/24/24 05:04 Patient symptoms unchanged Reevaluation #3: Patient informed of results questions answered Reevaluation #4: Was pt. sent in by a medical professional or institution (ARI Jenkins, HOUSE PAINTER, urgent care, hospital, or penitentiary...) When possible be specific @ -no Did you speak to anyone other than the patient for history (EMS, parent, family, police, friend...)? What history was obtained from this source @ -no Did you review nursing and triage notes (agree or disagree)? Why? @ -agree Are old charts reviewed (outside hosp., previous admission, EMS record, old EKG, old radiological studies, urgent care reports/EKG's, penitentiary records)? Report findings @ -yes Differential Diagnosis (chest pain, altered mental status, abdominal pain women, abdominal pain men, vaginal bleeding, weakness, fever, dyspnea, syncope, headache, dizziness, GI bleed, back pain, seizure, CVA, palpatations, mental health, musculoskeletal)? @ -prior EKG interpreted by me (3pts min.). @ -yes X-rays interpreted by me (1pt min.). @ -yes negative for acute disease CT interpreted by me (1pt min.). @ -no U/S interpreted by me (1pt. min.). @ -no What testing was considered but not performed or refused? (CT, X-rays, U/S, labs)? Why? @ -none What meds were considered but not given or refused? Why? @ -none Did you discuss the management of the patient with other professionals (professionals i.e. ARI Jenkins, HOUSE PAINTER, lab, RT, psych nurse, social problems specialist, ceo & founder, teacher, hotel security officer, dependency case manager)? Give summary @ -no Was smoking cessation discussed for >3mins.? @ -no Was critical care preformed (if so, how long)? @ -no Were there social determinants of health that impacted care today? How? (Homelessness, low income, unemployed, alcoholism, drug addiction, transportation, low edu. Level, literacy, decrease access to med. care, long-term, rehab)? @ -none Was there de-escalation of care discussed even if they declined (Discuss DNR or withdrawal of care, Hospice)? DNR status @ -no What co-morbidities impacted this encounter? (DM, HTN, Smoking, COPD, CAD, Cancer, CVA, ARF, Chemo, Hep., AIDS, mental health diagnosis, sleep apnea, morbid obesity)? @ -none Was patient admitted / discharged? Hospital course, mention meds given and route, prescriptions, significant lab abnormalities, going to OR and other pertinent info. @ - 59 male will be admitted for chest pain observation with persistent abdominal pain chest pain here in the ER history of pleurisy Admitted Undiagnosed new problem with uncertain prognosis? @ -no Drug Therapy requiring intensive monitoring for toxicity (Heparin, Nitro, Insulin, Cardizem)? @ -no Were any procedures done? @ -no Diagnosis/symptom? @ -Chest pain Acute, or Chronic, or Acute on Chronic? @ -Acute Uncomplicated (without systemic symptoms) or Complicated (systemic symptoms)? @ -Complicated Side effects of treatment? @ -no Exacerbation, Progression, or Severe Exacerbation? @ -exacerbation Poses a threat to life or bodily function? How? (Chest pain, [place], [place], pneumonia, PE, COPD, DKA, ARF, appy, cholecystitis, CVA, Diverticulitis, Homicidal, Suicidal, threat to staff... and all critical care pts) @ -yes with chest pain Reevaluation #5: Differential Chest Pain: Stable Angina, Unstable Angina, STEMI, NSTEMI Aortic Dissection, Pneumothorax, Musculoskeletal, Esophageal Spasm GERD, Cholecystitis, Pancreatitis, Zoster, this is not meant to be an all-inclusive list. - Consultations Consultation #1: Spoke with jillian who agrees to admit this patient Chest Pain MDM - MDM 59 male will be admitted for chest pain observation with persistent abdominal pain chest pain here in the ER history of pleurisy Disposition Clinical Impression: Atypical chest pain, Chest pain, Esophageal cancer Disposition: ADMITTED IP TO THIS HOSP Condition: Stable Is patient prescribed a controlled substance at d/c from ED?: No Time of Disposition: 19:00
[2024-06-24] MEDS: SODIUM CHLORIDE 0.9% 1,000 ML IV STA (04:19)
[2024-06-24] MEDS: SODIUM CHLORIDE 0.9% 500 ML 500 ML IV STA (04:22)
[2024-06-24] MEDS: MORPHINE SULFATE 4 MG/ML SYRINGE IV STA (04:25)
[2024-06-24 04:35] LABS: Basophils % (A) 0 %; Eosinophils # (A) 0.1 k/uL (0-0.7); Eosinophils % (A) 1 %; HCT 40.5 % (39.0-53.0); HGB 12.9 gm/dL (13.0-17.5); Hypochromasia Slight; Lymphocytes # (A) 0.5 k/uL (1.0-4.8); Lymphocytes % (A) 5 %; MCHC 31.8 g/dL (31.0-37.0); MCV 94.3 fL (80.0-100.0); Mean Platelet Volume 7.3; Monocytes # (A) 0.5 k/uL (0-1.0); Monocytes % (A) 5 %; Neutrophils # (A) 8.7 k/uL (1.3-7.7); Neutrophils % (A) 88 %; Platelet Count 178 k/uL (150-450); RDW 14.7 % (11.5-15.5); WBC 9.9 k/uL (3.8-10.6)
[2024-06-24 04:44] LABS: INR 0.9 (<1.2); Partial Thromboplastin Time 25.2 sec (22.0-30.0); Prothrombin Time 10.2 sec (10.0-12.5)
[2024-06-24 04:45] LABS: ALT 15 U/L (4-49); AST 28 U/L (17-59); African American GFR (CKD) >90 (>60 ml/min/1.73 sqM); Albumin 4.1 g/dL (3.5-5.0); Alkaline Phosphatase 113 U/L (38-126); Anion Gap 8 mmol/L; Blood Urea Nitrogen 22 mg/dL (9-20); Calcium 9.6 mg/dL (8.4-10.2); Carbon Dioxide 22 mmol/L (22-30); Chloride 107 mmol/L (98-107); Glucose 112 mg/dL (74-99); Lipase 33 U/L (23-300); Magnesium 1.7 mg/dL (1.6-2.3); Non-African American GFR(CKD) 78 (>60 ml/min/1.73 sqM); Potassium 3.5 mmol/L (3.5-5.1); Sodium 137 mmol/L (137-145); Total Bilirubin 0.6 mg/dL (0.2-1.3); Total Protein 6.9 g/dL (6.3-8.2)
[2024-06-24 04:53] LABS: NT-Pro-B-Type Natriuretic Pept 191 pg/mL
[2024-06-24] MEDS: HYDROmorphone 1 MG/ML 1 ML SYRINGE IVP STA (06:24)
--- NOTE | 2024-06-24 06:32 | XR ---
EXAM: XR Chest, 2 Views CLINICAL HISTORY: ITS.REASON XR Reason: Chest Pain TECHNIQUE: Frontal and lateral views of the chest. COMPARISON: 04/23/24 FINDINGS: Lungs: Persistent opacity in the medial half of the right hemithorax with slight increased opacity in the right lower aspect and lucency in the upper aspect. These findings are nonspecific and may represent dense consolidation/atelectasis. Possibility of cystic/necrotic change difficult to entirely exclude. Recommend correlation with chest CT and history for further evaluation. Pleural space: Blunting of the right costophrenic angle. No pneumothorax. Heart: Cardiovascular silhouette, upper limits of normal, likely accentuated by low lung volume. Mediastinum: Stable and within normal limits. Bones/joints: Unremarkable. No acute fracture. Tubes, lines and devices: Overlying chest leads obscure portion of the chest. IMPRESSION: 1. Increasing opacity in the medial half of the right hemithorax with area of lucency in the upper aspect. These may represent worsening consolidation/atelectasis with cystic/necrotic change. Recommend correlation with history and follow-up chest CT for further evaluation. 2. Small right effusion
--- NOTE | 2024-06-24 06:48 | CT ---
EXAM: CT Angiography Chest With Intravenous Contrast CLINICAL HISTORY: ITS.REASON CT Reason: pain TECHNIQUE: Axial computed tomographic angiography images of the chest with intravenous contrast. CTDI is 22.75 mGy and DLP is 1779.2 mGy-cm. This CT exam was performed using one or more of the following dose reduction techniques: automated exposure control, adjustment of the mA and/or kV according to patient size, and/or use of iterative reconstruction technique. MIP reconstructed images were created and reviewed. COMPARISON: 03/17/24 FINDINGS: Pulmonary arteries: Unremarkable. No pulmonary embolism. Aorta: Tortuous ectatic thoracic aorta again seen. No thoracic aortic aneurysm. Lungs: Bilateral basilar atelectasis/airspace disease. No mass. Pleural space: Small bilateral pleural effusions. No pneumothorax. Heart: Interval development of small to moderate pericardial fluid. No cardiomegaly. Mediastinum: Interval esophageal surgery with gastric pull-through procedure, likely accounting for the opacity seen on chest x-ray. Air- fluid/debris level in the gastric pull-through, likely ingested material. Bones/joints: Degenerative changes in the spine. Prior right posterior thoracotomy changes. No acute fracture. No dislocation. Soft tissues: Unremarkable. Lymph nodes: Unremarkable. No enlarged lymph nodes. Intraperitoneal space: Fluid loculated along the right major fissure. Other findings: Suboptimal timing of the contrast bolus. IMPRESSION: 1. No gross evidence for pulmonary embolism. Suboptimal timing of the contrast bolus, limit evaluation. 2. Postsurgical changes status post gastric pull-through procedure. 3. Small bilateral pleural effusions and bibasilar atelectasis/airspace disease. 4. Partial loculated fluid along the right major fissure. 5. Small to moderate pericardial effusion.
--- NOTE | 2024-06-24 07:10 | CT ---
EXAMINATION TYPE: CT abdomen pelvis w con DATE OF EXAM: 06/24/2024 COMPARISON: 12/13/2023 HISTORY: Abdominal pain Automated exposure control for dose reduction was used. TECHNIQUE: Helical acquisition of images was performed from the lung bases through the pelvis findin g uneventful administration nonionic IV contrast material. FINDINGS: There is a gastric pull-through procedure. There is a loculated right pleural effusion within the fis sure. There is a moderate pericardial effusion. The gallbladder is normal without distention, wall thickening, pericholecystic fluid or gallstones. T here is no biliary ductal dilatation. There is no focal mass or organomegaly involving the liver, pancreas, spleen or adrenal glands. There are surgical absence of the right kidney. There are 3, tiny 1 to 2 mm nonobstructing left renal calcifications and there are 2 simple cortical cysts of the left kidney. The caliber the abdominal aorta is normal is no retroperitoneal adenopathy or hemorrhage. The bowel loops are normal in caliber and there is no evidence of dilatation or obstruction. No infla mmatory changes are identified in the bowel wall or mesentery. There is a small bowel drainage cathet er entering the left upper quadrant of the abdomen and terminating in the proximal small bowel. There is a small amount of intraperitoneal fluid adjacent to the liver and within the cul-de-sac. The re is no free intraperitoneal air. No pelvic mass, free fluid, abscess or adenopathy. Small left inguinal hernia containing fluid. No focal osseous lesions. IMPRESSION: 1. Small amount of free intraperitoneal fluid adjacent to the liver. No free intraperitoneal air. 2. No bowel obstruction or inflammation. 3. gastric pull through procedure and loculated pleural fluid in the right lung fissure. 4. Small bowel tube in the left upper quadrant. 5. Right nephrectomy 6. Three, 1 to 2 mm nonobstructing left renal calcifications. 7. Small left inguinal hernia containing fluid [facility], , 06/24/2024 7:08 AM
[2024-06-24] MEDS ORDERED: KETOROLAC 15 MG/ML 1 ML VIAL IVP PRN (07:35)
[2024-06-24] MEDS ORDERED: NALOXONE 0.4 MG/ML 1 ML VIAL IV PRN (07:35)
[2024-06-24] MEDS ORDERED: ONDANSETRON 4 MG/2 ML VIAL IVP PRN (07:35)
[2024-06-24] MEDS: SODIUM CHLORIDE 0.9% 1,000 ML IV SCH (07:42)
[2024-06-24] MEDS: DEXAMETHASONE SOD PHOSPHATE 10 MG/ML 1 ML VIAL IVP STA (07:50)
[2024-06-24] MEDS: HYDROmorphone 1 MG/ML 1 ML SYRINGE IVP PRN (09:16)
--- NOTE | 2024-06-24 09:27 | P.HPIM ---
History of Present Illness H&P Date: 06/24/24 Patient is a 59-year-old male with history of esophageal cancer status post resection and extensive surgery, radiation and chemotherapy presenting with sudden onset pleuritic chest pain that started last night. He claims that he was in his usual state of health, however, developed sudden losses pleuritic chest pain before go to sleep. It ultimately woke him up in the middle of the night prompting him to come to the hospital. He claims that the pain is 8 out of 10 and worse, worse with taking a deep breath, worse with lying down, relieved with sitting up and with shallow breathing. He is also had consistent cough since his radiation, no further worsening of that. He denies any productive cough. He denies any nausea or vomiting, abdominal pain, urinary or bowel complaints. He denies any recent travel history, sick contacts, calf swelling, or any rashes. He still has his J-tube, but has not been utilizing it for feeding. He only occasionally flushes the J-tube. He is able to tolerate oral intake. In the ED, temperature was 98, pulse 113, respiratory rate 18, blood pressure 151/80, saturating at 97% on room air. EKG independently interpreted, shows sinus rhythm with nonspecific ST-T wave changes, poor R wave progression in the precordial leads. Chest x-ray independently interpreted, shows right-sided pleural effusion with an opacity in the right lower lobe. Chest CTA did not show any PE, postsurgical changes status post gastric pull-through procedure, small bilateral pleural effusion, partial loculated fluid along the right major fissure, small to moderate pericardial effusion. Abdomen pelvis CT showed small amount of free intraperitoneal fluid adjacent to the liver, no free intraperitoneal air, no SBO, right nephrectomy, small left inguinal hernia containing fluid. WBC was 9.9, hemoglobin 12.9, potassium 3.5, creatinine 1.05, troponin negative, proBNP 131. Lipase was 33. Patient admitted for pleuritic chest pain. Pulmonology consulted. Pertinent positives and negatives as discussed in HPI, a complete review of systems was performed and all other systems are negative. Patient seen and examined at bedside. Vital signs reviewed General: nontoxic, no distress, appears at stated age Derm: warm, dry Head: atraumatic, normocephalic, symmetric Eyes: EOMI, no lid lag, anicteric sclera, pupils equal round reactive to light ENT: Nose and ears atraumatic Neck: No thyromegaly, supple Mouth: no lip lesion, mucus membranes moist Cardiovascular: S1S2 reg, no murmur, no edema Lungs: clear to auscultation bilateral, no rhonchi, no rales, no wheeze, no accessory muscle use Abdominal: soft, nontender to palpation, no guarding, no appreciable organomegaly, J-tube in place Ext: no gross muscle atrophy, muscle strength muscle strength 5 out of 5 in all 4 extremities, no contractures Neuro: CN II-XII grossly intact Psych: Alert, oriented, appropriate affect Assessment/Plan: Active: Pleuritis versus pericarditis Bilateral pleural effusions Possible radiation pneumonitis Pericardial effusion History of esophageal cancer status post resection, chemotherapy and radiation -Continue telemetry monitoring -Echocardiogram ordered -CRP and ESR ordered -Trend troponin -Pulmonology consulted -Pain control with IV Toradol 15 every 6 hours, IV Dilaudid as needed, monitor for sedation -Continue IV steroids dexamethasone 6 mg daily for now Chronic: Hypertension -Resume home medications once reconciled The patient is admitted with an anticipated less than 2 midnight stay as observation status for evaluation of pleuritic chest pain. Surrogate decision-maker: CODE STATUS: Full code DVT prophylaxis: Lovenox Anticipated discharge date: Pending clinical course Anticipated discharge place: Pending clinical course A total of 55 minutes was spent on the care of this complex patient more than 50% of the time was spent in counseling and care coordination. Past Medical History Past Medical History: Cancer, Hyperlipidemia, Hypertension Additional Past Medical History / Comment(s): Esophageal cancer 11/2023, j-tube 11/2023. Hx of kidney stones. 1st radiation tx 01-03-24. First chemo tx 11-05-23. History of Any Multi-Drug Resistant Organisms: None Reported Past Surgical History: No Surgical Hx Reported Additional Past Surgical History / Comment(s): EGD x2. J-tube 11/2023. Lithotrips y December 2023. Had stents ureteral removed . Past Anesthesia/Blood Transfusion Reactions: No Reported Reaction Additional Past Anesthesia/Blood Transfusion Reaction / Comment(s): No hx of blood transfusion. Past Psychological History: Anxiety Smoking Status: Never smoker Past Alcohol Use History: None Reported Past Drug Use History: None Reported - Past Family History Mother Family Medical History: Cancer Father Family Medical History: Cancer Sister(s) Family Medical History: Cancer Additional Family Medical History / Comment(s): breast Medications and Allergies Home Medications Medication Instructions Recorded Confirmed Type Verapamil [Isoptin] 40 mg PO TID 01/04/24 03/10/24 History Metoprolol Tartrate [Lopressor] 100 mg PO BID 01/08/24 03/10/24 History Ondansetron Odt [Zofran ODT] 4 - 8 mg PO Q4H PRN 01/08/24 03/10/24 History clonazePAM [KlonoPIN ODT] 0.25 mg PO BID PRN 01/08/24 03/10/24 History HYDROcodone/APAP 10-325MG [[place] 1 tab PO Q6H PRN 03/10/24 03/10/24 History 10-325] Lidocaine Viscous 2% [Xylocaine 15 ml MUCOUS MEM QID PRN 03/10/24 03/10/24 History Viscous] Nystatin 100,000 Unit/ml Susp 500,000 unit PO QID PRN 03/10/24 03/10/24 History [Mycostatin Oral Susp] cephALEXin [Keflex Oral Susp] 10 ml PO QID 5 Days #200 ml 03/10/24 Rx Allergies Allergy/AdvReac Type Severity Reaction Status Date / Time niacin Allergy Rash/Hives Verified 06/24/24 04:04 Physical Exam Vitals: Vital Signs Temp Pulse Resp BP Pulse Ox 06/24/24 08:04 96 17 106/67 94 L 06/24/24 06:30 97 20 141/90 95 06/24/24 05:30 98 15 128/73 95 06/24/24 04:30 101 H 14 149/89 96 06/24/24 04:25 101 H 16 149/89 97 06/24/24 04:02 98 F 113 H 18 151/80 97 Intake and Output 06/23/24 06/24/24 06/24/24 22:59 06:59 14:59 Other: Weight 104.326 kg Results CBC & Chem 7: 06/24/24 04:17 06/24/24 04:17 Labs: Abnormal Lab Results - Last 24 Hours (Table) 06/24/24 06/24/24 Range/Units 04:17 04:17 Hgb 12.9 L (13.0-17.5) gm/dL Neutrophils # 8.7 H (1.3-7.7) k/uL Lymphocytes # 0.5 L (1.0-4.8) k/uL BUN 22 H (9-20) mg/dL Glucose 112 H (74-99) mg/dL
--- NOTE | 2024-06-24 10:59 | US ---
EXAMINATION TYPE: US chest DATE OF EXAM: 06/24/2024 COMPARISON: NONE CLINICAL INDICATION: Male, 59 years old with history of assess pleural effusions; Pleural effusion. TECHNIQUE: Grayscale imaging of the chest. Targeted ultrasound of the posterior lower FINDINGS: EXAM MEASUREMENTS: Right Pleural Effusion pocket size: 2.5 cm Right skin surface to fluid distance: 3.1 cm Left Pleural Effusion pocket size: 1.9 cm Left skin surface to fluid distance: 3.1 cm Right side not marked for possible thoracentesis outside the dept. Left side not marked for possible thoracentesis outside the dept. Pulmonologists are able to review the images in the patient?s EMR. Bilateral pleural effusion seen <3cm didn't nora for thoracentesis. IMPRESSIONS: Small bilateral pleural effusions as described above. [facility], , 06/24/2024 10:56 AM
[2024-06-24] MEDS ORDERED: DEXAMETHASONE SOD PHOSPHATE 4 MG/ML 1 ML VIAL IVP SCH (12:00)
[2024-06-24] MEDS: GABAPENTIN 300 MG CAP PO SCH (20:54)
[2024-06-24] MEDS: METOPROLOL TARTRATE 25 MG TAB PO SCH (20:54)
[2024-06-25 02:17] VITALS: RESP 16
--- NOTE | 2024-06-25 08:12 | P.CNPUL ---
History of Present Illness Consult date: 06/25/24 Requesting physician: Peter Rai Reason for consult: chest pain, pleural effusion Chief complaint: Chest pain. History of present illness: Pulmonary consult dated June 25, 2024. 59-year-old male with history of esophageal cancer. The patient recently had radiation and chemotherapy, and may have this year, in advance of esophageal surgery, for his esophageal cancer. He had a gastric pull-through procedure performed on April. It was done by Dr. Santana. The patient also has a history of hyperlipidemia, and hypertension. The patient comes into the hospital, on June 24, complaining of chest pain. The chest pain is described as being sort of in the center of the chest, and is both dull and sharp. He does state that the pain seems to get worse with inspiration. The patient apparently has a prior history of pleurisy, and feels like the pain that he is having is similar to that. The patient is seen today in room 619. He is on room air. No IV fluids. Decadron has already been given. White count 9.9, hemoglobin 12.9, hematocrit 40.5, platelet count normal. Coagulation studies are normal. Sodium 137, potassium 3.5, chlorides 107, CO2 22, BUN 22, crea tinine 1.05. Troponins were negative x 3. Chest x-ray, CT angiogram, and ultrasound of the chest were all evaluated. The patient does have small bilateral effusions. Thoracentesis is not indicated. No evidence of pulmonary embolism. Review of Systems REVIEW OF SYSTEMS: CONSTITUTIONAL: [Negative.] NEUROLOGIC: [ Negative.] HEENT: [ Negative.] CARDIAC: Chest pain. PULMONARY: Chest pain. GI: [Negative.] : [Negative.] RHEUMATOLOGIC: [ Negative.] IMMUNOLOGIC: [ Negative.] ENDOCRINE: [Negative. ] DERMATOLOGIC: [Negative.] Past Medical History Past Medical History: Cancer, Hyperlipidemia, Hypertension Additional Past Medical History / Comment(s): Esophageal cancer 11/2023, j-tube 11/2023. Hx of kidney stones. 1st radiation tx 01-03-24. First chemo tx 11-05-23. History of Any Multi-Drug Resistant Organisms: None Reported Past Surgical History: No Surgical Hx Reported Additional Past Surgical History / Comment(s): EGD x2. J-tube 11/2023. Lithotripsy December 2023. Had stents ureteral removed . Past Anesthesia/Blood Transfusion Reactions: No Reported Reaction Additional Past Anesthesia/Blood Transfusion Reaction / Comment(s): No hx of blood transfusion. Past Psychological History: Anxiety Smoking Status: Never smoker Past Alcohol Use History: None Reported Past Drug Use History: None Reported - Past Family History Mother Family Medical History: Cancer Father Family Medical History: Cancer Sister(s) Family Medical History: Cancer Additional Family Medical History / Comment(s): breast Medications and Allergies Home Medications Medication Instructions Recorded Confirmed Type clonazePAM [KlonoPIN ODT] 0.25 mg PO BID PRN 01/08/24 06/24/24 History Gabapentin 300 mg PO BID 06/24/24 06/24/24 History Metoprolol Tartrate [Lopressor] 25 mg PO BID 06/24/24 06/24/24 History Pantoprazole Sodium [Protonix] 40 mg PO DAILY 06/24/24 06/24/24 History Allergies Allergy/AdvReac Type Severity Reaction Status Date / Time niacin Allergy Rash/Hives Verified 06/24/24 09:36 Physical Exam Osteopathic Statement: *. No significant issues noted on an osteopathic structural exam other than those noted in the History and Physical/Consult. Vitals: Vital Signs Temp Pulse Pulse Resp BP BP BP 06/25/24 02:00 98.1 F 81 16 112/70 06/24/24 21:11 90 18 121/78 06/24/24 19:46 97.6 F 86 17 198/67 06/24/24 14:45 98.4 F 90 16 111/75 06/24/24 12:39 98.1 F 94 16 113/49 06/24/24 12:03 98 F 77 16 115/72 Pulse Ox 06/25/24 02:00 93 L 06/24/24 21:11 94 L 06/24/24 19:46 93 L 06/24/24 14:45 95 06/24/24 12:39 97 06/24/24 12:03 96 Intake and Output 06/24/24 06/25/24 06/25/24 22:59 06:59 14:59 Intake Total 240 Balance 240 Intake: Oral 240 Other: # Voids 2 2 No acute distress, oriented 3. Currently on room air. HEENT examination is grossly unremarkable. Mucous membranes are moist. No oral lesions. Neck supple. Full range of motion. No adenopathy thyromegaly or neck vein distention. Cardiovascular examination reveals regular rhythm rate. S1-S2 normal. No S3 or S4. No discernible murmur noted. Lungs reveal clear breath sounds. Breath sounds are equal bilaterally. No adventitious lung sounds including wheezes rhonchi or crackles. Abdomen soft bowel sounds are heard. No masses or tenderness. Extremities are intact. No cyanosis clubbing or edema. Skin is without rash or lesion. Neurologic examination is brief but nonfocal. Results - Laboratory Findings CBC and BMP: 06/24/24 04:17 06/24/24 04:17 PT/INR, D-dimer PT 10.2 sec (10.0-12.5) 06/24/24 04:17 INR 0.9 (<1.2) 06/24/24 04:17 Abnormal lab findings: Abnormal Labs 06/24/24 06/24/24 06/24/24 04:17 04:17 04:17 Hgb 12.9 L Neutrophils # 8.7 H Lymphocytes # 0.5 L ESR 46 H BUN 22 H Glucose 112 H C-Reactive Protein 06/24/24 04:17 Hgb Neutrophils # Lymphocytes # ESR BUN Glucose C-Reactive Protein 1.1 H - Diagnostic Findings Chest x-ray: image reviewed CT scan - chest: image reviewed Assessment and Plan Assessment: Chest pain, with some features of pleurisy. History of esophageal cancer, status post chemo/radiation in January, followed by gastric pull-through procedure on April 14. Small bilateral pleural effusions. History of hyperlipidemia. History of hypertension. History of nephrolithiasis. Lifelong non-smoker. Plan: Plan dated June 25, 2024. The patient is currently on room air. No IV fluids. He is seen in room 619. He describes chest pain, which seem to start in the center of his chest, which was dull at times, and sharp at times, worse on deep inspiration. The patient was admitted, and placed on Decadron. The pain is already better. In my opinion, the patient could be discharged, on a short course of steroid. No additional recommendations are made. Chest x-ray, CT scan, and ultrasound, were reviewed. Time with Patient: Greater than 30
[2024-06-25 08:17] VITALS: BP 109/71; PULSE 82; TEMP 98.4
[2024-06-25] MEDS: PANTOPRAZOLE 40 MG TABLET PO SCH (08:22)
[2024-06-25] MEDS: ENOXAPARIN 40 MG/0.4 ML SYRINGE SQ SCH (08:22)
[2024-06-25] MEDS: DEXAMETHASONE SOD PHOSPHATE 10 MG/ML 1 ML VIAL IVP SCH (08:22)
--- NOTE | 2024-06-25 09:41 | CA ---
Transthoracic Echo Report Name: Mark Peralta Age: 59 Gender: M : 1965 Exam Date: 06/24/2024 16:18 Exam Location: [facility] Ht (in): 67 Wt (lb): 230 Ordering Physician: Lei Mancini MD Attending/Referring Phys: [id number], [employer] Skye Haynes, SHARYN Procedure CPT: Indications: pericarditis, pericardial effusion Cardiac Hx: Technical Quality: Technically difficult study Contrast 1: Definity Total Dose (mL): 2 Contrast 2: Total Dose (mL): MEASUREMENTS (Male / Female) Normal Values FINDINGS Left Ventricle Left ventricular ejection fraction is estimated at 55-60 %. Mild concentric left ventricular hypertrophy. Left ventricular cavity size normal. No obvious regional wall motion abnormalities. No evidence of LV thrombus on contrast imaging Right Ventricle Normal right ventricular size and function. Unable to estimate the right ventricular systolic pressure. Right Atrium Normal right atrial size. Left Atrium Normal left atrial size. Mitral Valve Structurally normal mitral valve. No mitral stenosis, regurgitation or prolapse. Aortic Valve Trileaflet aortic valve. No aortic valve stenosis or regurgitation. Tricuspid Valve Structurally normal tricuspid valve. No tricuspid stenosis, regurgitation or prolapse. Pulmonic Valve Pulmonic valve not well visualized. No pulmonic stenosis. Trace pulmonic regurgitation. Pericardium Small pericardial effusion. Aorta Normal size aortic root and proximal ascending aorta. CONCLUSIONS Left ventricular ejection fraction is estimated at 55-60 %. No obvious regional wall motion abnormalities. No significant valvular dysfunction No significant chamber size abnormality Small pericardial effusion with no signs of tamponade Previewed by: Dr Amauri Zhang (Electronically Signed) Final Date: 25 June 2024 09:41
--- NOTE | 2024-06-25 11:28 | P.DS ---
Providers Date of admission: 06/24/24 07:35 Expected date of discharge: 06/25/24 Attending physician: Peter Rai MD Consults: 06/24/24 09:02 Consult Physician Routine Consulting Provider: David Parry Consult Reason/Comments: pleuritic chest pain Do you want consulting provider notified?: Yes Primary care physician: Koffi Escamilla Hospital Course: Discharge Diagnosis: Acute pleurisy Bilateral pleural effusions Small pericardial effusion History of esophageal cancer status post resection, chemotherapy and radiation Hypertension Hospital Course: 59-year-old male with history of esophageal cancer status post resection and extensive surgery, radiation and chemotherapy presenting with sudden onset pleuritic chest pain that started last night. In the ED, temperature was 98, pulse 113, respiratory rate 18, blood pressure 151/80, saturating at 97% on room air. EKG independently interpreted, shows sinus rhythm with nonspecific ST-T wave changes, poor R wave progression in the precordial leads. Chest x-ray independently interpreted, shows right-sided pleural effusion with an opacity in the right lower lobe. Chest CTA did not show any PE, postsurgical changes status post gastric pull-through procedure, small bilateral pleural effusion, partial loculated fluid along the right major fissure, small to moderate pericardial effusion. Abdomen pelvis CT showed small amount of free intraperitoneal fluid adjacent to the liver, no free intraperitoneal air, no SBO, right nephrectomy, small left inguinal hernia containing fluid. WBC was 9.9, hemoglobin 12.9, potassium 3.5, creatinine 1.05, troponin negative, proBNP 131. Lipase was 33. Patient admitted for pleuritic chest pain. Echocardiogram showed small pericardial effusion. Slightly elevated ESR and CRP. pulmonology consulted. Likely has pleurisy. Pain improved. Patient being discharged on steroid taper. Follow-up with PCP. Patient seen and examined at bedside. Vital signs reviewed and stable. General: nontoxic, no distress, appears at stated age Derm: warm, dry Head: atraumatic, normocephalic, symmetric Eyes: EOMI, no lid lag, anicteric sclera, pupils equal round reactive to light ENT: Nose and ears atraumatic Neck: No thyromegaly, supple Mouth: no lip lesion, mucus membranes moist Cardiovascular: S1S2 reg, no murmur, no edema Lungs: clear to auscultation bilateral, no rhonchi, no rales, no wheeze, no accessory muscle use Abdominal: soft, nontender to palpation, no guarding, no appreciable organomegaly, J-tube in place Ext: no gross muscle atrophy, muscle strength muscle strength 5 out of 5 in all 4 extremities, no contractures Neuro: CN II-XII grossly intact Psych: Alert, oriented, appropriate affect A total of 33 minutes of time were spent preparing this complex discharge summary. Patient was discharged on 06/25/2024 at 1123. Patient Condition at Discharge: Stable Plan - Discharge Summary Discharge Rx Participant: No New Discharge Prescriptions: New methylPREDNISolone Dose Pack [Medrol Dose Pack] 4 mg PO DIRECTED #1 packet Continue clonazePAM [KlonoPIN ODT] 0.25 mg PO BID PRN PRN Reason: Anxiety Metoprolol Tartrate [Lopressor] 25 mg PO BID Gabapentin 300 mg PO BID Pantoprazole Sodium [Protonix] 40 mg PO DAILY Discharge Medication List clonazePAM [KlonoPIN ODT] 0.25 mg PO BID PRN 01/08/24 [History] Gabapentin 300 mg PO BID 06/24/24 [History] Metoprolol Tartrate [Lopressor] 25 mg PO BID 06/24/24 [History] Pantoprazole Sodium [Protonix] 40 mg PO DAILY 06/24/24 [History] methylPREDNISolone Dose Pack [Medrol Dose Pack] 4 mg PO DIRECTED #1 packet 06/25/24 [Rx] Follow up Appointment(s)/Referral(s): Koffi Escamilla DO [Primary Care Provider] - 1-2 days Patient Instructions/Handouts: Chest Pain (ED), Pleurisy (DC) Activity/Diet/Wound Care/Special Instructions: Please see your PCP. Discharge Disposition: HOME SELF-CARE
== END 2024-06-25 12:00 | disposition home or self-care (01) ==
LOC: EC 04:00 → 6NMEDSUR 07:35
PROVIDERS: ADMIT Internal Medicine; ATTEND Internal Medicine
DX: J90 Pleural effusion, not elsewhere classified (principal); I31.39 Other pericardial effusion (noninflammatory); E78.5 Hyperlipidemia, unspecified; I10 Essential (primary) hypertension; F41.9 Anxiety disorder, unspecified; Z79.899 Other long term (current) drug therapy; Z93.4 Other artificial openings of gastrointestinal tract status; Z85.01 Personal history of malignant neoplasm of esophagus; Z92.3 Personal history of irradiation; Z92.21 Personal history of antineoplastic chemotherapy; Z87.442 Personal history of urinary calculi
CPT/HCPCS: 96376 ×3; 96372; 96361; 96374; 96375; 99285; 36415; 93005; 93306; 83880; 80053; 85652; 83690; 83735; 84484; 85025; 85610; 85730; 86140; 71046; 76604; 71275; 74177; G0378 ×2; J2270; J1100 ×2; J1650; Q9957; J1171 ×2; Q9967

== ENCOUNTER → 2024-07-21 | Outpatient (CLI) | payer OTHER ==
[2024-07-21 11:31] LABS: African American GFR (CKD) 88 (>60 ml/min/1.73 sqM); Blood Urea Nitrogen 23 mg/dL (9-20); Non-African American GFR(CKD) 76 (>60 ml/min/1.73 sqM)
--- NOTE | 2024-07-21 15:30 | CT ---
EXAMINATION TYPE: CT ChestAbdPelvis w con DATE OF EXAM: 07/21/2024 COMPARISON: CT abdomen and pelvis dated 06/24/2024 and CTA chest dated 06/24/2024 HISTORY: HX OF ESOPHAGEAL CA. HX OF A KIDNEY MASS WITH KIDNEY REMOVAL. CT DLP: 2346.90 mGycm Automated exposure control for dose reduction was used. CONTRAST: CT scan of the chest, abdomen and pelvis is performed with Oral Contrast and with IV Contrast, patien t injected with 100ml mL of Isovue 300. FINDINGS: CT chest: There is a gastric pull-through procedure. There is persistent mild atelectasis in the lung bases. Th ere is no suspicious lung mass or nodule. . The loculated fluid collection in the right minor fissure has decreased significantly in the interval and minimal residual fluid persists. There is no mediastinal, hilar or axillary adenopathy and the g reat vessels chest are normal. No focal osseous lesions are seen. CT abdomen and pelvis: Gallbladder is normal without distention, pericholecystic fluid, wall thickening or gallstone. There is no biliary ductal dilatation. There is no focal mass or organomegaly involving the liver, pancreas, spleen or adrenal glands.. There is surgical absence of the right kidney. There are left renal cysts but no solid renal mass or hydronephrosis. Caliber of the abdominal aorta is normal as no retroperitoneal adenopathy. The bowel loops are normal in caliber and there is no dilatation or obstruction. No inflammatory yanes ges identified in the bowel wall and mesentery. There is no free intracranial air or fluid. There is a stable small bowel tube There is no pelvic mass or adenopathy. There is no free fluid within the pelvis. No focal osseous lesions are seen. Soft tissue the abdomen and pelvis are normal. IMPRESSION: 1. Gastric pull-through procedure. 2. No suspicious lung mass or nodule. 3. Stable mild bibasilar atelectasis. 4. Decreasing loculated fluid in the right minor fissure as described above. 5. No significant abnormality in the abdomen or pelvis. 6. No evidence of recurrent or metastatic disease. [facility], , 07/21/2024 3:28 PM
== END | disposition home or self-care (01) ==
LOC: RADCTMAIN 10:45
PROVIDERS: ATTEND Internal Medicine Hematology & Oncology
DX: C15.5 Malignant neoplasm of lower third of esophagus (principal); E78.5 Hyperlipidemia, unspecified; I10 Essential (primary) hypertension; J98.11 Atelectasis; Z71.3 Dietary counseling and surveillance
CPT/HCPCS: 82565; 84520; 71260; 74177; 36415; Q9967

== ENCOUNTER → 2025-01-18 | Outpatient (CLI) | payer BC, OTHER ==
[2025-01-18 11:22] LABS: African American GFR (CKD) 88 (>60 ml/min/1.73 sqM); Blood Urea Nitrogen 16 mg/dL (9-20); Non-African American GFR(CKD) 76 (>60 ml/min/1.73 sqM)
--- NOTE | 2025-01-18 14:38 | CT ---
EXAMINATION TYPE: CT ChestAbdPelvis w con CT DLP: 3530 mGycm, Automated exposure control for dose reduction was used. DATE OF EXAM: 01/18/2025 12:26 PM COMPARISON: Multiple CT Chest Abdomen Pelvis With most recent 10/23/2024, PET CT 03/30/2024 CLINICAL INDICATION:Male, 59 years old with history of C15.5 CANCER ESOPHAGUS C77.9; PHH, esophagus C A Technique: Multiple axial images of the chest, abdomen, and pelvis were obtained following the intrav enous administration of 100 mL Isovue-300. Oral contrast was administered. Two-dimensional coronal an d sagittal reconstructions were obtained. Findings: CHEST: LUNGS/ PLEURA: No pneumothorax, or focal consolidation. Trace right pleural effusion. Minimal right basilar and left lower lobe linear scarring and/or atelectasis redemonstrated. No suspicious pulmonar y nodules or masses AIRWAY: Patent and unremarkable. HEART: Size within normal limits. No pericardial effusion. No significant coronary artery calcificati ons. MEDIASTINUM: No enlarged lymph nodes. Postsurgical changes from esophagectomy with gastric pull-throu gh changes with multiple surgical clips present. No suspicious lymph nodes. 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 MUSCULOSKELETAL: No acute osseous abnormalities. No aggressive osseous lesion. Mild multilevel degene rative disc disease. Suspected postoperative surgical changes to the right sixth rib again. SOFT TISSUES/LYMPH NODES: Bilateral gynecomastia. LOWER NECK: No significant findings. ABDOMEN: ABDOMEN LIVER: Stable left hepatic lobe cyst measuring up to 1.3 cm. GALLBLADDER AND BILE DUCTS: Unremarkable. PANCREAS: Unremarkable. SPLEEN: Unremarkable. ADRENAL GLANDS: Unremarkable. KIDNEYS AND URETERS: Post right nephrectomy changes. No left-sided hydronephrosis. Left renal cysts a re unchanged. Largest measures up to 4.6 cm. No follow-up recommended. Couple of nonobstructing left renal calculi largest measuring up to 7 mm. PELVIS BLADDER: Unremarkable REPRODUCTIVE: Prostate is enlarged in size measuring 5.1 cm in transverse dimension. Small prostate c alcifications. ABDOMEN & PELVIS STOMACH AND BOWEL: Gastric pull-through with esophagectomy changes. Enteric contrast reaches the ile ocecal junction. No focal bowel wall thickening or surrounding inflammatory changes. The appendix is within normal limits. No evidence of bowel obstruction. PERITONEUM: No evidence of pneumoperitoneum or free fluid. VASCULATURE: No evidence of aortic aneurysm. MUSCULOSKELETAL: No acute osseous abnormalities. No aggressive osseous lesion. Mild multilevel degene rative disc disease. Grade 1 anterolisthesis of L5 on S1 with bilateral pars defects. Degeneration ch anges worse at L5-S1 with disc space narrowing and osteophyte formation and facet arthropathy. LYMPH NODES: No lymph nodes greater than 1 cm short axis. SOFT TISSUE/ABDOMINAL WALL: Post surgical changes of the anterior abdominal wall. IMPRESSION: 1. Postsurgical changes from esophagectomy and gastric pull-through. No evidence for recurrence or m etastatic disease. 2. Postsurgical changes from right nephrectomy. [facility], , 01/18/2025 2:35 PM
== END | disposition home or self-care (01) ==
LOC: RADCTMAIN 10:24
PROVIDERS: ATTEND Radiology Radiation Oncology
DX: C15.5 Malignant neoplasm of lower third of esophagus (principal); C77.9 Secondary and unspecified malignant neoplasm of lymph node, unspecified; Z90.5 Acquired absence of kidney; Z98.890 Other specified postprocedural states
CPT/HCPCS: 82565; 84520; 71270; 74178; 36415; Q9967